=== PATIENT | female | born 1950 | race Caucasian/White ===

== ENCOUNTER 2016-08-01 17:18 | Inpatient (IN) | payer BC ==
[~2016-08-01] VITALS: Ht 165.1 cm; Wt 71.9 kg
[~2016-08-01 17:18] MED LIST: ACET325T16 PO; ALBU2.5V5 NEB; ALLO100T PO; AMLO10TA2 PO; ASPI-482 PO; ASPI325T11 PO; ATOR10TA60 PO; BACI28.43 TP; CALC0.25 PO; CALC667C6 PO; DARB60DI SQ; DOCU-109 PO; ERGO500027 PO; FOLI0.8T3 PO; FURO10VI IVP; FURO20TA3 PO; FURO80TA72 PO; HYDR-971 PO; METO25TA4 PO; OLME40TA12 PO; OMEP20CA9 PO; ONDA4TAB7 PO; PANT40TA5 PO; SENN-22 PO; SIMV20TA3 PO; WARF4TAB68 PO; ZOLP5TAB PO
[2016-08-01 20:27] VITALS: BP 103/57
[2016-08-01] MEDS ORDERED: CINA30TA2 PO (21:14)
[2016-08-01] MEDS ORDERED: AMLO5TAB2 PO (21:14)
[2016-08-01] MEDS ORDERED: FERR-26 PO (21:14)
[2016-08-01] MEDS ORDERED: SEVE800T9 PO (21:14)
[2016-08-01] MEDS ORDERED: ASPI-630 PO (21:14)
[2016-08-01] MEDS ORDERED: METO50TA2 PO (21:14)
[2016-08-01] MEDS ORDERED: ONDANSETRON PF 4 MG/2 ML VIAL. IV PRN (21:15)
[2016-08-01] MEDS ORDERED: 0.9 % SODIUM CHLORIDE 10 ML DISP.SYRIN. IV PRN (21:15)
[2016-08-01] MEDS ORDERED: IV NORMAL SALINE 500ML BAG 500 ML IV ONE (21:30)
[2016-08-01] MEDS: metroNIDAZOLE 500 MG TABLET PO SCH (22:42)
[2016-08-01] MEDS: CIPROFLOXACIN HCL 250 MG TABLET. PO SCH (22:42)
[2016-08-01 22:53] VITALS: BP 117/74
--- NOTE | 2016-08-01 23:00 | HP ---
ADMIT DATE: 08/01/2016 CHIEF COMPLAINT: Weakness and diarrhea. HISTORY OF PRESENT ILLNESS: The patient is a 66-year-old woman with past medical history of CAD status post CABG as well as end-stage renal disease, currently on peritoneal dialysis, who presented to [facility] with dizziness, lightheadedness, and generalized weakness. She reports having had diarrhea for 2 days, on and Tuesday, which then resolved over Tuesday. This morning, however, she reports one episode of blood-tinged loose bowel movement, not really diarrhea. She has a history of hemorrhoidal bleed similarly, but denies any rectal pain. Denies any fevers, chills, nausea, vomiting, has not been on any recent antibiotics. She is not aware of any sick contact. Complicating her history is the fact that she has end-stage renal disease, on peritoneal dialysis, awaiting renal transplant. At the ER there, a CT of the abdomen was obtained, which was essentially unrevealing. The patient, however, had 4 further diarrheal bowel movements, possibly in response to the p.o. contrast. Decision was therefore made to transfer her to [facility] for evaluation by her kidney doctors as well. PAST MEDICAL HISTORY: CAD status post CABG and mitral valve replacement, end-stage renal disease, on dialysis. FAMILY HISTORY: No kidney disease known. 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 ALLERGIES: TRAMADOL. MEDICATIONS: MAR reconciled with home medications. REVIEW OF SYSTEMS: Positive as per HPI. She relates that she actually felt much better after receiving a liter of fluid in the ER at [facility]. Rest of organ system review is benign. PHYSICAL EXAMINATION: VITAL SIGNS: From today show a blood pressure of 103/57, heart rate at 111, respiratory rate at 16. She is afebrile. GENERAL: This is a 66-year-old well-nourished woman, alert and oriented, no acute distress, pale appearing. HEENT: Shows no scleral icterus. NECK: Supple without any lymphadenopathy. LUNGS: Clear. HEART: Has regular rate and rhythm without any murmurs. ABDOMEN: Soft and nontender. Peritoneal dialysis catheter in place. LABORATORY DATA: CBC with a WBC of 24, hemoglobin of 10.6, MCV of 93, platelets of 310. Manual diff with 79% neutrophils, 3% bands, toxic vacuolation present. Chemistries with a BUN and creatinine of 59 and 13.8, essentially normal electrolytes. LFTs normal. Urine reveals nitrite negative, WBC 5-10, moderate bacteria. IMAGING: CT of the abdomen obtained at [facility] reveals extensive diverticulosis centered around the sigmoid colon. [place] kidneys are small. There is an incidental finding of a small noncalcified 2-3 mm nodule in the left lung base and moderate hiatus hernia. ASSESSMENT AND PLAN: The patient is a 66-year-old woman with end-stage renal disease and heart disease, now presenting with what appears to be dehydration in the setting of probable viral gastroenteritis versus diverticulitis. We will give her an additional 500 mL IV fluid bolus. We will hold off on antibiotics for the time being, as it seems that she actually resolved her symptoms for 36 hours until she received p.o. contrast, which occasionally can cause diarrhea. We cannot rule out diverticulitis. Given high risk of peritoneal seeding, we will treat with antibiotics, especially given her elevated WBC. Creatinine is significantly elevated. She is not aware of her baseline. We will obtain renal consult. Hold peritoneal dialysis for tonight until further instructions from Nephrology. The patient does have history of CAD, no acute issues are present at this time. We will continue her home medications. TY SHORT MD DR: YOVANNY/nts JOB#: [id number] / [id number] PING Barajas MD
[2016-08-02 03:00] VITALS: BP 127/74
[2016-08-02 04:27] LABS: BASO # 0.1 x10^3/uL (0.0-0.2); BASO % 0 % (0-3); EOS % 2 % (0-3); HEMATOCRIT 27.4 % (36.0-47.0); HEMOGLOBIN 9.1 g/dL (12.0-15.5); LYMPH # 1.4 x10^3/uL (1.0-4.8); LYMPH % 8 % (24-48); MEAN CORPUSCULAR HEMOGLOBIN 32 pg (25-35); MEAN CORPUSCULAR HGB CONC 33 g/dL (31-37); MEAN CORPUSCULAR VOLUME 95 fL (79-100); MONO % 9 % (0-9); NEUT % 81 % (31-73); PLATELET COUNT 227 x10^3/uL (140-400); RED BLOOD COUNT 2.88 x10^6/uL (3.50-5.40); RED CELL DISTRIBUTION WIDTH 15.8 % (11.5-14.5); WHITE BLOOD COUNT 18.9 x10^3/uL (4.0-11.0)
[2016-08-02 05:11] LABS: ALBUMIN 2.5 g/dL (3.4-5.0); ALBUMIN/GLOBULIN RATIO 0.6 (1.0-1.7); CREATININE 13.2 mg/dL (0.6-1.0); GFR 2.8; POTASSIUM 4.1 mmol/L (3.5-5.1); TOTAL BILIRUBIN 0.3 mg/dL (0.2-1.0); TOTAL PROTEIN 6.4 g/dL (6.4-8.2)
[2016-08-02] MEDS: metroNIDAZOLE 500 MG TABLET PO SCH (05:54)
[2016-08-02] MEDS: CIPROFLOXACIN HCL 250 MG TABLET. PO SCH (05:55)
[2016-08-02 06:34] LABS: % EOS 1 % (0-5)
[2016-08-02 06:35] LABS: PLT ESTIMATE ADEQUATE (ADEQUATE)
[2016-08-02 07:00] VITALS: BP 112/73
[2016-08-02 11:00] VITALS: BP 98/61
--- NOTE | 2016-08-02 11:22 | PDOC2 ---
CONSULT Date of Consult Date of Consult DATE: 08/02/16 TIME: 11:18 Reason for Consult Reason for Consult: ESRD Referring Physician Referring Physician: HAN Identification/Chief Complaint Chief Complaint DIARRHEA Source Source: Chart review, Patient History of Present Illness Reason for Visit: THIS IS A 66 YR OLD ADMITTED WITH WEAKNESS AND DIARRHEA OF SEVERAL DAYS DURATION. IT IS IMPROVING NOW. SHE IS ADMITTED WITH A DX OF DEHYDRATION. SHE HAS ESRD AND IS ON PD. LEUCOCYTOSIS IS NOTED BUT OTHERWISE LABS ARE C/W ESRD Past Medical History Cardiovascular: HTN, Hyperlipidemia CENTRAL NERVOUS SYSTEM: Other Heme/Onc: Anemia NOS Hepatobiliary: No pertinent hx Psych: No pertinent hx Rheumatologic: Other Infectious disease: No pertinent hx Renal/: Chronic renal failure Endocrine: Hyperparathyroidism Past Surgical History Past Surgical History PD CATH PLACEMENT Past Surgical History: Other Family History Family History: No Significant Social History ALCOHOL: none Drugs: None Current Medications Current Medications Current Medications Sodium Chloride (Normal Saline Flush) 3 ml PRN DAILY PRN IV AFTER MEDS AND BLOOD DRAWS; Start 08/01/16 at 21:15 Ondansetron HCl (Zofran) 4 mg PRN Q6HRS PRN IV NAUSEA/VOMITING; Start 08/01/16 at 21:15 Sodium Chloride 500 ml @ 500 mls/hr 1X ONCE IV ; Start 08/01/16 at 21:30; Stop 08/01/16 at 22:29; Status DC Ciprofloxacin (Cipro) 250 mg [id number] PO Last administered on 08/02/16 05:55; Start 08/01/16 at 22:00 Metronidazole (Flagyl) 500 mg Q8HRS PO Last administered on 08/02/16t 05:54; Start 08/01/16 at 22:00 Atorvastatin Calcium (Lipitor) 10 mg QHS PO ; Start 08/02/16 at 21:00; Status UNV Sevelamer Carbonate (Renvela) 2,400 mg TIDWMEALS PO ; Start 08/02/16 at 12:00; Status UNV Active Scripts Active Nephro-Wagner Tablet (Folic Acid/Vitamin B Comp W-C) 0.8 Mg Tablet 1 Tab PO DAILY Atorvastatin Calcium 10 Mg Tablet 10 Mg PO QHS Vitamin D2 (Ergocalciferol (Vitamin D2)) 50,000 Unit Capsule 50,000 Unit PO WEEKLY Calcitriol 0.25 Mcg Capsule 0.5 Mcg PO DAILY Reported Metoprolol Tartrate 50 Mg Tablet 1 Tab PO BID Amlodipine Besylate 5 Mg Tablet 5 Mg PO DAILY Sensipar (Cinacalcet Hcl) 30 Mg Tablet 1 Tab PO DAILY Aspirin 81 Mg Tab.chew 1 Tab PO DAILY Renvela (Sevelamer Carbonate) 800 Mg Tablet 3 Tab PO TIDWMEALS Ferrous Sulfate 325 Mg Tablet 1 Tab PO DAILY Lasix (Furosemide) 80 Mg Tablet 1 Tab PO BID Allergies Allergies: Coded Allergies: tramadol (Verified Adverse Reaction, Intermediate, dizziness, 07/10/15) ROS General: YES: Fatigue, Malaise, Appetite PSYCHOLOGICAL ROS: YES: Anxiety Eyes: Yes Decreased vision HEENT: YES: Heacaches Respiratory: YES: Cough Gastrointestinal: Yes Diarrhea Genitourinary: YES Other (OLIGURIA) Musculoskeletal: Yes Muscular Weakness Neurological: Yes Weakness Skin: Yes Dry Skin Physical Exam General: Alert, Oriented X3, Cooperative, mild distress HEENT: Atraumatic, PERRLA Lungs: Clear to auscultation Heart: Regular rate, Normal S1 Abdomen: Normal bowel sounds, Soft, No tenderness Extremities: No clubbing, No edema Skin: No rashes Neuro: Normal speech Psych/Mental Status: Mental status NL, Mood NL MUSCULOSKELETAL: No deformity, No swelling Vitals VITALS Vital Signs Date Time Temp Pulse Resp B/P (MAP) Pulse Ox O2 Delivery O2 Flow Rate FiO2 08/02/16 08:00 Room Air 08/02/16 07:00 97.9 95 18 112/73 (86) 92 97.9 Labs Labs Laboratory Tests Test 08/02/16 04:05 White Blood Count 18.9 x10^3/uL (4.0-11.0) Red Blood Count 2.88 x10^6/uL (3.50-5.40) Hemoglobin 9.1 g/dL (12.0-15.5) Hematocrit 27.4 % (36.0-47.0) Mean Corpuscular Volume 95 fL (79-100) Mean Corpuscular Hemoglobin 32 pg (25-35) Mean Corpuscular Hemoglobin Concent 33 g/dL (31-37) Red Cell Distribution Width 15.8 % (11.5-14.5) Platelet Count 227 x10^3/uL (140-400) Neutrophils (%) (Auto) 81 % (31-73) Lymphocytes (%) (Auto) 8 % (24-48) Monocytes (%) (Auto) 9 % (0-9) Eosinophils (%) (Auto) 2 % (0-3) Basophils (%) (Auto) 0 % (0-3) Neutrophils # (Auto) 15.2 x10^3uL (1.8-7.7) Lymphocytes # (Auto) 1.4 x10^3/uL (1.0-4.8) Monocytes # (Auto) 1.7 x10^3/uL (0.0-1.1) Eosinophils # (Auto) 0.4 x10^3/uL (0.0-0.7) Basophils # (Auto) 0.1 x10^3/uL (0.0-0.2) Segmented Neutrophils % 88 % (35-66) Lymphocytes % 8 % (24-48) Monocytes % 3 % (0-10) Eosinophils % 1 % (0-5) Platelet Estimate Adequate (ADEQUATE) Sodium Level 135 mmol/L (136-145) Potassium Level 4.1 mmol/L (3.5-5.1) Chloride Level 95 mmol/L (98-107) Carbon Dioxide Level 20 mmol/L (21-32) Anion Gap 20 (6-14) Blood Urea Nitrogen 63 mg/dL (7-20) Creatinine 13.2 mg/dL (0.6-1.0) Estimated GFR (Cockcroft-Gault) 2.8 BUN/Creatinine Ratio 5 (6-20) Glucose Level 92 mg/dL (70-99) Calcium Level 8.0 mg/dL (8.5-10.1) Total Bilirubin 0.3 mg/dL (0.2-1.0) Aspartate Amino Transf (AST/SGOT) 15 U/L (15-37) Alanine Aminotransferase (ALT/SGPT) 12 U/L (14-59) Alkaline Phosphatase 75 U/L (46-116) Total Protein 6.4 g/dL (6.4-8.2) Albumin 2.5 g/dL (3.4-5.0) Albumin/Globulin Ratio 0.6 (1.0-1.7) Laboratory Tests Test 08/02/16 04:05 White Blood Count 18.9 x10^3/uL (4.0-11.0) Red Blood Count 2.88 x10^6/uL (3.50-5.40) Hemoglobin 9.1 g/dL (12.0-15.5) Hematocrit 27.4 % (36.0-47.0) Mean Corpuscular Volume 95 fL (79-100) Mean Corpuscular Hemoglobin 32 pg (25-35) Mean Corpuscular Hemoglobin Concent 33 g/dL (31-37) Red Cell Distribution Width 15.8 % (11.5-14.5) Platelet Count 227 x10^3/uL (140-400) Neutrophils (%) (Auto) 81 % (31-73) Lymphocytes (%) (Auto) 8 % (24-48) Monocytes (%) (Auto) 9 % (0-9) Eosinophils (%) (Auto) 2 % (0-3) Basophils (%) (Auto) 0 % (0-3) Neutrophils # (Auto) 15.2 x10^3uL (1.8-7.7) Lymphocytes # (Auto) 1.4 x10^3/uL (1.0-4.8) Monocytes # (Auto) 1.7 x10^3/uL (0.0-1.1) Eosinophils # (Auto) 0.4 x10^3/uL (0.0-0.7) Basophils # (Auto) 0.1 x10^3/uL (0.0-0.2) Segmented Neutrophils % 88 % (35-66) Lymphocytes % 8 % (24-48) Monocytes % 3 % (0-10) Eosinophils % 1 % (0-5) Platelet Estimate Adequate (ADEQUATE) Sodium Level 135 mmol/L (136-145) Potassium Level 4.1 mmol/L (3.5-5.1) Chloride Level 95 mmol/L (98-107) Carbon Dioxide Level 20 mmol/L (21-32) Anion Gap 20 (6-14) Blood Urea Nitrogen 63 mg/dL (7-20) Creatinine 13.2 mg/dL (0.6-1.0) Estimated GFR (Cockcroft-Gault) 2.8 BUN/Creatinine Ratio 5 (6-20) Glucose Level 92 mg/dL (70-99) Calcium Level 8.0 mg/dL (8.5-10.1) Total Bilirubin 0.3 mg/dL (0.2-1.0) Aspartate Amino Transf (AST/SGOT) 15 U/L (15-37) Alanine Aminotransferase (ALT/SGPT) 12 U/L (14-59) Alkaline Phosphatase 75 U/L (46-116) Total Protein 6.4 g/dL (6.4-8.2) Albumin 2.5 g/dL (3.4-5.0) Albumin/Globulin Ratio 0.6 (1.0-1.7) Assessment/Plan Assessment/Plan IMP GASTROENTERITIS DIARRHEA-BETTER DEHYDRATION-IMPROVED ESRD PLAN UNABLE TO MAINTAIN AN IV SO ENCOURAGE PO FLUIDS OK TO D/C FROM RENAL STANDPOINT WILL DO 1.5% DIANEAL BAG [facility] AT HOME IF DISCHARGED AND FEELING WELL ELIEL MARINELLI MD Aug 02, 2016 11:22
[2016-08-02] MEDS ORDERED: METR500T PO (11:33)
--- NOTE | 2016-08-02 11:49 | PDOC3 ---
Discharge Summary Visit Information Date of Admission: Aug 01, 2016 Date of Discharge: Aug 02, 2016 Admitting Diagnosis: sepsis, diarrhea Final Diagnosis colitis, sepsis ESRD, on PD moderate malnutrition, POA metabolic acidosis relative hypotension, dehydration Brief Hospital Course Allergies Allergies Coded Allergies Type Severity Reaction Last Updated Verified tramadol Adverse Reaction Intermediate dizziness 07/10/15 Yes Vital Signs Vital Signs Date Time Temp Pulse Resp B/P (MAP) Pulse Ox O2 Delivery O2 Flow Rate FiO2 08/02/16 08:00 Room Air 08/02/16 07:00 97.9 95 18 112/73 (86) 92 97.9 Lab Results Laboratory Tests Test 08/02/16 04:05 White Blood Count 18.9 x10^3/uL (4.0-11.0) Red Blood Count 2.88 x10^6/uL (3.50-5.40) Hemoglobin 9.1 g/dL (12.0-15.5) Hematocrit 27.4 % (36.0-47.0) Mean Corpuscular Volume 95 fL (79-100) Mean Corpuscular Hemoglobin 32 pg (25-35) Mean Corpuscular Hemoglobin Concent 33 g/dL (31-37) Red Cell Distribution Width 15.8 % (11.5-14.5) Platelet Count 227 x10^3/uL (140-400) Neutrophils (%) (Auto) 81 % (31-73) Lymphocytes (%) (Auto) 8 % (24-48) Monocytes (%) (Auto) 9 % (0-9) Eosinophils (%) (Auto) 2 % (0-3) Basophils (%) (Auto) 0 % (0-3) Neutrophils # (Auto) 15.2 x10^3uL (1.8-7.7) Lymphocytes # (Auto) 1.4 x10^3/uL (1.0-4.8) Monocytes # (Auto) 1.7 x10^3/uL (0.0-1.1) Eosinophils # (Auto) 0.4 x10^3/uL (0.0-0.7) Basophils # (Auto) 0.1 x10^3/uL (0.0-0.2) Segmented Neutrophils % 88 % (35-66) Lymphocytes % 8 % (24-48) Monocytes % 3 % (0-10) Eosinophils % 1 % (0-5) Platelet Estimate Adequate (ADEQUATE) Sodium Level 135 mmol/L (136-145) Potassium Level 4.1 mmol/L (3.5-5.1) Chloride Level 95 mmol/L (98-107) Carbon Dioxide Level 20 mmol/L (21-32) Anion Gap 20 (6-14) Blood Urea Nitrogen 63 mg/dL (7-20) Creatinine 13.2 mg/dL (0.6-1.0) Estimated GFR (Cockcroft-Gault) 2.8 BUN/Creatinine Ratio 5 (6-20) Glucose Level 92 mg/dL (70-99) Calcium Level 8.0 mg/dL (8.5-10.1) Total Bilirubin 0.3 mg/dL (0.2-1.0) Aspartate Amino Transf (AST/SGOT) 15 U/L (15-37) Alanine Aminotransferase (ALT/SGPT) 12 U/L (14-59) Alkaline Phosphatase 75 U/L (46-116) Total Protein 6.4 g/dL (6.4-8.2) Albumin 2.5 g/dL (3.4-5.0) Albumin/Globulin Ratio 0.6 (1.0-1.7) Laboratory Tests Test 08/02/16 04:05 White Blood Count 18.9 x10^3/uL (4.0-11.0) Red Blood Count 2.88 x10^6/uL (3.50-5.40) Hemoglobin 9.1 g/dL (12.0-15.5) Hematocrit 27.4 % (36.0-47.0) Mean Corpuscular Volume 95 fL (79-100) Mean Corpuscular Hemoglobin 32 pg (25-35) Mean Corpuscular Hemoglobin Concent 33 g/dL (31-37) Red Cell Distribution Width 15.8 % (11.5-14.5) Platelet Count 227 x10^3/uL (140-400) Neutrophils (%) (Auto) 81 % (31-73) Lymphocytes (%) (Auto) 8 % (24-48) Monocytes (%) (Auto) 9 % (0-9) Eosinophils (%) (Auto) 2 % (0-3) Basophils (%) (Auto) 0 % (0-3) Neutrophils # (Auto) 15.2 x10^3uL (1.8-7.7) Lymphocytes # (Auto) 1.4 x10^3/uL (1.0-4.8) Monocytes # (Auto) 1.7 x10^3/uL (0.0-1.1) Eosinophils # (Auto) 0.4 x10^3/uL (0.0-0.7) Basophils # (Auto) 0.1 x10^3/uL (0.0-0.2) Segmented Neutrophils % 88 % (35-66) Lymphocytes % 8 % (24-48) Monocytes % 3 % (0-10) Eosinophils % 1 % (0-5) Platelet Estimate Adequate (ADEQUATE) Sodium Level 135 mmol/L (136-145) Potassium Level 4.1 mmol/L (3.5-5.1) Chloride Level 95 mmol/L (98-107) Carbon Dioxide Level 20 mmol/L (21-32) Anion Gap 20 (6-14) Blood Urea Nitrogen 63 mg/dL (7-20) Creatinine 13.2 mg/dL (0.6-1.0) Estimated GFR (Cockcroft-Gault) 2.8 BUN/Creatinine Ratio 5 (6-20) Glucose Level 92 mg/dL (70-99) Calcium Level 8.0 mg/dL (8.5-10.1) Total Bilirubin 0.3 mg/dL (0.2-1.0) Aspartate Amino Transf (AST/SGOT) 15 U/L (15-37) Alanine Aminotransferase (ALT/SGPT) 12 U/L (14-59) Alkaline Phosphatase 75 U/L (46-116) Total Protein 6.4 g/dL (6.4-8.2) Albumin 2.5 g/dL (3.4-5.0) Albumin/Globulin Ratio 0.6 (1.0-1.7) Brief Hospital Course Ms. Flores is a 66 old female on PD, admit for acute diarrhea. stool normalized at 12 hours, stool sample sent, not resulted able to take PO, ate normal amount of food. felt at baseline, request DC home Discharge Information Condition at Discharge: Improved Follow Up: Weeks Disposition/Orders: D/C to Home Scheduled Amlodipine Besylate (Amlodipine Besylate), 5 MG PO DAILY, (Reported) Aspirin (Aspirin), 1 TAB PO DAILY, (Reported) Atorvastatin Calcium (Atorvastatin Calcium), 10 MG PO QHS Calcitriol (Calcitriol), 0.5 MCG PO DAILY Cinacalcet Hcl (Sensipar), 1 TAB PO DAILY, (Reported) Ergocalciferol (Vitamin D2) (Vitamin D2), 50,000 UNIT PO WEEKLY Ferrous Sulfate (Ferrous Sulfate), 1 TAB PO DAILY, (Reported) Folic Acid/Vitamin B Comp W-C (Nephro-Wagner Tablet), 1 TAB PO DAILY Furosemide (Lasix), 1 TAB PO BID, (Reported) Metoprolol Tartrate (Metoprolol Tartrate), 1 TAB PO BID, (Reported) Sevelamer Carbonate (Renvela), 3 TAB PO TIDWMEALS, (Reported) Patient Instructions Patient Instructions time > 30 min flagyl 7 days hold BP meds for one day, relative hypotensino, cont PD, Dr. Franco instructed to give smaller dose CHIKA GOMEZ MD Aug 02, 2016 11:49
[2016-08-02] MEDS ORDERED: SEVELAMER CARBONATE 800 MG TABLET. PO SCH (12:00)
[2016-08-02] MEDS ORDERED: ATORVASTATIN CALCIUM 10 MG TABLET. PO SCH (21:00)
== END 2016-08-02 13:48 | disposition home or self-care (01) | DRG 871 ==
LOC: 5 NORTH 19:15
PROVIDERS: ADMIT Internal Medicine Hematology & Oncology; ATTEND Internal Medicine Hematology & Oncology
DX: A41.9 Sepsis, unspecified organism (principal); N18.6 End stage renal disease; E44.0 Moderate protein-calorie malnutrition; E87.2 Acidosis; I12.0 Hypertensive chronic kidney disease with stage 5 chronic kidney disease or end stage renal disease; I25.10 Atherosclerotic heart disease of native coronary artery without angina pectoris; E78.5 Hyperlipidemia, unspecified; E86.0 Dehydration; E21.3 Hyperparathyroidism, unspecified; K52.9 Noninfective gastroenteritis and colitis, unspecified; Z95.1 Presence of aortocoronary bypass graft; Z95.2 Presence of prosthetic heart valve; Z99.2 Dependence on renal dialysis; Z88.5 Allergy status to narcotic agent; Z68.26 Body mass index [BMI] 26.0-26.9, adult
CPT/HCPCS: 36415; 80053; 85007; 85027; 87324

== ENCOUNTER 2016-12-05 11:58 | Inpatient (IN) | payer BC ==
[~2016-12-05] VITALS: Ht 165.1 cm; Wt 70.8 kg
[~2016-12-05 11:58] MED LIST changes: +AMLO5TAB2 PO; +ASPI-630 PO; +CINA30TA2 PO; +FERR-26 PO; +METO50TA2 PO; +METR500T PO; +SEVE800T9 PO
[2016-12-05 14:49] LABS: BASO # 0.1 x10^3/uL (0.0-0.2); BASO % 1 % (0-3); EOS % 2 % (0-3); HEMATOCRIT 26.1 % (36.0-47.0); HEMOGLOBIN 8.7 g/dL (12.0-15.5); LYMPH # 1.1 x10^3/uL (1.0-4.8); LYMPH % 9 % (24-48); MEAN CORPUSCULAR HEMOGLOBIN 32 pg (25-35); MEAN CORPUSCULAR HGB CONC 33 g/dL (31-37); MEAN CORPUSCULAR VOLUME 97 fL (79-100); MONO % 9 % (0-9); NEUT % 79 % (31-73); PLATELET COUNT 314 x10^3/uL (140-400); RED CELL DISTRIBUTION WIDTH 15.1 % (11.5-14.5); WHITE BLOOD COUNT 11.9 x10^3/uL (4.0-11.0)
[2016-12-05 15:02] LABS: CALCIUM 7.2 mg/dL (8.5-10.1); CREATININE 10.4 mg/dL (0.6-1.0); GFR 3.7
[2016-12-05 15:08] LABS: ALBUMIN 3.1 g/dL (3.4-5.0); ALBUMIN/GLOBULIN RATIO 0.7 (1.0-1.7); TOTAL BILIRUBIN 0.3 mg/dL (0.2-1.0); TOTAL PROTEIN 7.5 g/dL (6.4-8.2)
[2016-12-05] MEDS ORDERED: PROCHLORPERAZINE 25 MG SUPP.RECT. PR PRN (16:15)
[2016-12-05] MEDS ORDERED: MORPHINE SULFATE 2 MG/ML DISP.SYRIN. IV PRN (16:15)
[2016-12-05] MEDS ORDERED: BISACODYL 10 MG SUPP.RECT. PR PRN (16:15)
[2016-12-05] MEDS ORDERED: MAG HYDROX/ALUMINUM HYD/SIMETH 30 ML ORAL.SUSP PO PRN (16:15)
[2016-12-05] MEDS ORDERED: PROCHLORPERAZINE 10 MG/2 ML VIAL. IV PRN (16:15)
[2016-12-05] MEDS ORDERED: oxyCODONE IR 5 MG TABLET PO PRN (16:15)
[2016-12-05] MEDS ORDERED: CALCIUM CARBONATE 500 MG TAB.CHEW PO PRN (16:15)
[2016-12-05] MEDS ORDERED: ONDANSETRON PF 4 MG/2 ML VIAL. IV PRN (16:15)
[2016-12-05] MEDS ORDERED: MAGNESIUM HYDROXIDE 2,400 MG/30 ML ORAL.SUSP. PO PRN (16:15)
--- NOTE | 2016-12-05 16:32 | PHYS DOC ---
Past Medical History Past Medical History: High Cholesterol, Hypertension, [place], Renal Failure Additional Past Medical Histor: Lupus Past Surgical History: , Other Additional Past Surgical Histo: dialysis catheter right upper chest Alcohol Use: None Drug Use: None Adult General Chief Complaint Chief Complaint: DIALYSIS PROBLEM HPI HPI Patient is a 66 year old female with history significant for end-stage renal disease who is currently on Prinivil dialysis presents here today secondary to malfunctioning peritoneal dialysis catheter. Patient reports that starting she's been having a difficult time draining her peritoneal dialysis fluid. She has been in close contact with her. No dialysis nurse and they have tried several interventions at home. Patient reports that she tried fiber in her perineal dialysate without any success. Patient reports that she tried manual drainage on Tuesday with minimal fluid obtained. Patient reports that today they put manual fluid inside her perineal cavity and today she is unable to extract any fluid. Patient reports that she feels like her abdomen is obviously distended from the perineal fluid but she is also feeling more short of breath and winded. Patient does have an appointment with Dr. Lovell tomorrow however she has been feeling more short of breath and was concerned so her dialysis nurse asked her to come to the ER today. Patient denies any other symptomatology. Patient has any fevers shakes chills nausea vomiting diarrhea chest pain or shortness of breath. Patient reports one similar episode like this happen in the past that they were resolved with the fibrin that she utilized was in her perineal dialysate however this time the fibrin is not working. Review of systems: Constitutional: Denies fever or chills Eyes: Denies change in visual acuity, redness, or eye pain HENT: Denies nasal congestion or sore throat All the other review systems are negative except as documented in the history of present illness portion. Physical exam: Constitutional: Well developed, well nourished, no acute distress, non-toxic appearance. HENT: Normocephalic, atraumatic, bilateral external ears normal, nose normal. Eyes:EOMI, conjunctiva normal, no discharge. Neck: Normal range of motion, no tenderness, supple, no stridor. Cardiovascular:Heart rate regular rhythm, Lungs & Thorax: Bilateral breath sounds clear to auscultation Abdomen: Bowel sounds normal, soft, no tenderness, no masses, no pulsatile masses. Mildly distended Skin: Warm, dry, no erythema, no rash. Back: No tenderness, no CVA tenderness. Extremities: No tenderness, no cyanosis, no clubbing, ROM intact, no edema. Neurologic: Alert and oriented X 3, normal motor function, normal sensory function, no focal deficits noted. Psychologic: Affect normal, judgement normal, mood normal. 66-year-old female with dysfunctional perineal dialysis catheter. I spoke to Dr. Lovell's associate ( Dr Pop) who called back and recommended patient be admitted to the hospital for interventional radiology intervention. Patient currently is clinically and hemodynamically stable. Patient's labs were all within normal limits. Patient has no evidence of hyperkalemia or acidosis at this time. I spoke to Dr. patel who is agreed to assist with admission of this patient for further management. Current Medications Current Medications Current Medications Medications (Trade) Dose Ordered Sig/Marcus Start Time Stop Time Status Last Admin Dose Admin Acetaminophen (Tylenol) 650 mg PRN Q6HRS PRN 12/05/16 16:15 Al Hydroxide/Mg Hydroxide (Mylanta Plus Xs) 30 ml PRN Q3HRS PRN 12/05/16 16:15 Amlodipine Besylate (Norvasc) 5 mg DAILY 12/06/16 09:00 Atorvastatin Calcium (Lipitor) 10 mg QHS 12/05/16 21:00 Bisacodyl (Dulcolax Supp) 10 mg PRN DAILY PRN 12/05/16 16:15 Calcitriol (Rocaltrol) 0.5 mcg DAILY 12/06/16 09:00 Calcium Carbonate/ Glycine (Tums) 500 mg PRN Q3HRS PRN 12/05/16 16:15 Cinacalcet (Sensipar) 30 mg DAILY 12/06/16 09:00 Docusate Sodium (Colace) 100 mg BID 12/05/16 21:00 Ergocalciferol (Vitamin D2) 50,000 unit WEEKLY 12/12/16 09:00 Ferrous Sulfate (Feosol) 325 mg DAILY 12/06/16 09:00 Furosemide (Lasix) 80 mg BID92 12/06/16 09:00 Magnesium Hydroxide (Milk Of Magnesia) 2,400 mg PRN Q12HR PRN 12/05/16 16:15 Metoprolol Tartrate (Lopressor) 50 mg BID 12/05/16 21:00 Morphine Sulfate 1 mg PRN Q1HR PRN 12/05/16 16:15 Ondansetron HCl (Zofran) 4 mg PRN Q6HRS PRN 12/05/16 16:15 Oxycodone HCl (Roxicodone) 5 mg PRN Q3HRS PRN 12/05/16 16:15 Prochlorperazine (Compazine) 25 mg PRN Q12HR PRN 12/05/16 16:15 Prochlorperazine Edisylate (Compazine) 10 mg PRN Q6HRS PRN 12/05/16 16:15 Sevelamer Carbonate (Renvela) 2,400 mg TIDWMEALS 12/05/16 17:00 Vitamin B Complex/ Vitamin C (Daniela-Wagner) 1 tab DAILY 12/06/16 09:00 Zolpidem Tartrate (Ambien) 5 mg PRN QHS PRN 12/05/16 16:15 Allergies Allergies Allergies Coded Allergies Type Severity Reaction Last Updated Verified tramadol Adverse Reaction Intermediate dizziness 07/10/15 Yes Current Patient Data Vital Signs Vital Signs Date Time Temp Pulse Resp B/P (MAP) Pulse Ox O2 Delivery O2 Flow Rate FiO2 12/05/16 15:30 91 149/83 (105) 96 Room Air 12/05/16 13:30 98.7 18 98.7 Lab Values Laboratory Tests Test 12/05/16 14:25 White Blood Count 11.9 x10^3/uL (4.0-11.0) H Red Blood Count 2.70 x10^6/uL (3.50-5.40) L Hemoglobin 8.7 g/dL (12.0-15.5) L Hematocrit 26.1 % (36.0-47.0) L Mean Corpuscular Volume 97 fL (79-100) Mean Corpuscular Hemoglobin 32 pg (25-35) Mean Corpuscular Hemoglobin Concent 33 g/dL (31-37) Red Cell Distribution Width 15.1 % (11.5-14.5) H Platelet Count 314 x10^3/uL (140-400) Neutrophils (%) (Auto) 79 % (31-73) H Lymphocytes (%) (Auto) 9 % (24-48) L Monocytes (%) (Auto) 9 % (0-9) Eosinophils (%) (Auto) 2 % (0-3) Basophils (%) (Auto) 1 % (0-3) Neutrophils # (Auto) 9.5 x10^3uL (1.8-7.7) H Lymphocytes # (Auto) 1.1 x10^3/uL (1.0-4.8) Monocytes # (Auto) 1.1 x10^3/uL (0.0-1.1) Eosinophils # (Auto) 0.2 x10^3/uL (0.0-0.7) Basophils # (Auto) 0.1 x10^3/uL (0.0-0.2) Sodium Level 143 mmol/L (136-145) Potassium Level 4.0 mmol/L (3.5-5.1) Chloride Level 102 mmol/L (98-107) Carbon Dioxide Level 23 mmol/L (21-32) Anion Gap 18 (6-14) H Blood Urea Nitrogen 53 mg/dL (7-20) H Creatinine 10.4 mg/dL (0.6-1.0) H Estimated GFR (Cockcroft-Gault) 3.7 BUN/Creatinine Ratio 5 (6-20) L Glucose Level 86 mg/dL (70-99) Calcium Level 7.2 mg/dL (8.5-10.1) L Total Bilirubin 0.3 mg/dL (0.2-1.0) Aspartate Amino Transferase (AST) 23 U/L (15-37) Alanine Aminotransferase (ALT) 39 U/L (14-59) Alkaline Phosphatase 113 U/L (46-116) Total Protein 7.5 g/dL (6.4-8.2) Albumin 3.1 g/dL (3.4-5.0) L Albumin/Globulin Ratio 0.7 (1.0-1.7) L Laboratory Tests 12/05/16 14:25 Laboratory Tests 12/05/16 14:25 EKG EKG [] Radiology/Procedures Radiology/Procedures [] Course & Med Decision Making Course & Med Decision Making Pertinent Labs and Imaging studies reviewed. (See chart for details) [] Dragon Disclaimer Dragon Disclaimer This electronic medical record was generated, in whole or in part, using a voice recognition dictation system. Departure Departure Impression: Primary Impression: Peritoneal dialysis catheter dysfunction Disposition: ADMITTED INPATIENT Admitting Physician: Termulo, Haydee Condition: STABLE Referrals: PING CARRANZA MD (PCP) LUANNE PARMAR MD Dec 05, 2016 16:32
[2016-12-05] MEDS ORDERED: LOPERAMIDE 2 MG CAPSULE PO PRN (17:15)
[2016-12-05] MEDS ORDERED: PROCHLORPERAZINE 5 MG TABLET. PO PRN (17:15)
--- NOTE | 2016-12-05 17:20 | PDOC1 ---
History and Physical Date of Admission Date of Admission DATE: 12/05/16 TIME: 17:16 Identification/Chief Complaint Chief Complaint malfunctioning PD Problems: Source Source: Caregiver, Chart review, Patient History of Present Illness History of Present Illness 66 y.o [place] female on PD over a yr now from lupus, last decent PD was wed and started to notice some clogged issues with her PD thrusday, Feels unwell, vomited twice now and some loose stools, some blood in vomitus but not in stools , K ok and bicarb ok but creat 10 (unknown baseline). Renal aware and recs IR viktor for fixing of pD cath tmr. NO fevers at home, stooled again at ER, Louise cruz,s keith for stools mimi, IR dhara.Dw patient and sister at bedside Past Medical History Cardiovascular: HTN, Hyperlipidemia CENTRAL NERVOUS SYSTEM: Other Heme/Onc: Anemia NOS Hepatobiliary: No pertinent hx Psych: No pertinent hx Rheumatologic: Other Infectious disease: No pertinent hx Renal/: Chronic renal failure Endocrine: Hyperparathyroidism Past Surgical History Past Surgical History: Other (PD cath) Family History Family History: No Significant Social History Smoke: No ALCOHOL: none Drugs: None Current Medications Current Medications Current Medications Ondansetron HCl (Zofran) 4 mg PRN Q6HRS PRN IV NAUSEA/VOMITING; Start at 16:15 Prochlorperazine Edisylate (Compazine) 10 mg PRN Q6HRS PRN IV NAUSEA/VOMITING; Start 12/05/16 at 16:15 Prochlorperazine (Compazine) 25 mg PRN Q12HR PRN [place] NAUSEA/VOMITING; Start at 16:15 Al Hydroxide/Mg Hydroxide (Mylanta Plus Xs) 30 ml PRN Q3HRS PRN PO HEARTBURN / GAS; Start 12/05/16 at 16:15 Calcium Carbonate/ Glycine (Tums) 500 mg PRN Q3HRS PRN PO UPSET STOMACH; Start 12/05/16 at 16:15 Zolpidem Tartrate (Ambien) 5 mg PRN QHS PRN PO INSOMNIA, MAY REPEAT IN 1HR; Start 12/05/16 at 16:15 Oxycodone HCl (Roxicodone) 5 mg PRN Q3HRS PRN PO BREAKTHROUGH PAIN; Start at 16:15 Morphine Sulfate 1 mg PRN Q1HR PRN IV PAIN; Start 12/05/16 at 16:15 Acetaminophen (Tylenol) 650 mg PRN Q6HRS PRN PO Headaches, Temp > 101.5F; Start 12/05/16 at 16:15 Docusate Sodium (Colace) 100 mg BID PO ; Start 12/05/16 at 21:00 Magnesium Hydroxide (Milk Of Magnesia) 2,400 mg PRN Q12HR PRN PO CONSTIPATION; Start 12/05/16 at 16:15 Bisacodyl (Dulcolax Supp) 10 mg PRN DAILY PRN [place] CONSTIPATION; Start 12/05/16 at 16:15 Amlodipine Besylate (Norvasc) 5 mg DAILY PO ; Start 12/06/16 at 09:00 Atorvastatin Calcium (Lipitor) 10 mg QHS PO ; Start 12/05/16 at 21:00 Calcitriol (Rocaltrol) 0.5 mcg DAILY PO ; Start 12/06/16 at 09:00 Cinacalcet (Sensipar) 30 mg DAILY PO ; Start 12/06/16 at 09:00 Ergocalciferol (Vitamin D2) 50,000 unit WEEKLY PO ; Start 12/12/16 at 09:00 Ferrous Sulfate (Feosol) 325 mg DAILY PO ; Start 12/06/16 at 09:00 Vitamin B Complex/ Vitamin C (Daniela-Wagner) 1 tab DAILY PO ; Start 12/06/16 at 09: 00 Furosemide (Lasix) 80 mg BID92 PO ; Start 12/06/16 at 09:00 Metoprolol Tartrate (Lopressor) 50 mg BID PO ; Start 12/05/16 at 21:00 Sevelamer Carbonate (Renvela) 2,400 mg TIDWMEALS PO ; Start 12/05/16 at 17:00 Active Scripts Active Flagyl (Metronidazole) 500 Mg Tablet 500 Mg PO Q8HRS Nephro-Wagner Tablet (Folic Acid/Vitamin B Comp W-C) 0.8 Mg Tablet 1 Tab PO DAILY Atorvastatin Calcium 10 Mg Tablet 10 Mg PO QHS Vitamin D2 (Ergocalciferol (Vitamin D2)) 50,000 Unit Capsule 50,000 Unit PO WEEKLY Calcitriol 0.25 Mcg Capsule 0.5 Mcg PO DAILY Reported Metoprolol Tartrate 50 Mg Tablet 1 Tab PO BID Amlodipine Besylate 5 Mg Tablet 5 Mg PO DAILY Sensipar (Cinacalcet Hcl) 30 Mg Tablet 1 Tab PO DAILY Aspirin 81 Mg Tab.chew 1 Tab PO DAILY Renvela (Sevelamer Carbonate) 800 Mg Tablet 3 Tab PO TIDWMEALS Ferrous Sulfate 325 Mg Tablet 1 Tab PO DAILY Lasix (Furosemide) 80 Mg Tablet 1 Tab PO BID Allergies Allergies: Coded Allergies: tramadol (Verified Adverse Reaction, Intermediate, dizziness, 07/10/15) ROS Review of System diiarrhea, vomitus, no fevers, no cp, soa, all else 14 pt reviewed, neg Physical Exam General: Alert, Oriented X3, Cooperative, No acute distress HEENT: Atraumatic, PERRLA, EOMI, Mucous membr. moist/pink Lungs: Clear to auscultation, Normal air movement Heart: S1S2, RRR, no thrills, no rubs, no gallops, no murmurs Cardiovascular: S1, S2 Breasts: Normal, Rt breast nml w/o mass, Lt breast nml w/o mass, Nipples normal Abdomen: Soft, Other (PD cath left side, no tenderness, no guarding) Rectal Exam: not examined PELVIC: Nml ext genitalia Extremities: No clubbing, No cyanosis, No edema, Normal pulses, No tenderness/ swelling Skin: No rashes, No breakdown, No significant lesion Neuro: Normal gait, Normal speech, Strength at 5/5 X4 ext, Normal tone, Sensation intact, Cranial nerves 3-12 NL, Reflexes 2+ Psych/Mental Status: Mental status NL, Mood NL Vitals Vitals Vital Signs Date Time Temp Pulse Resp B/P (MAP) Pulse Ox O2 Delivery O2 Flow Rate FiO2 12/05/16 17:02 71 128/77 (94) 91 Room Air 12/05/16 13:30 98.7 18 98.7 Labs Labs Laboratory Tests Test 12/05/16 14:25 White Blood Count 11.9 x10^3/uL (4.0-11.0) Red Blood Count 2.70 x10^6/uL (3.50-5.40) Hemoglobin 8.7 g/dL (12.0-15.5) Hematocrit 26.1 % (36.0-47.0) Mean Corpuscular Volume 97 fL (79-100) Mean Corpuscular Hemoglobin 32 pg (25-35) Mean Corpuscular Hemoglobin Concent 33 g/dL (31-37) Red Cell Distribution Width 15.1 % (11.5-14.5) Platelet Count 314 x10^3/uL (140-400) Neutrophils (%) (Auto) 79 % (31-73) Lymphocytes (%) (Auto) 9 % (24-48) Monocytes (%) (Auto) 9 % (0-9) Eosinophils (%) (Auto) 2 % (0-3) Basophils (%) (Auto) 1 % (0-3) Neutrophils # (Auto) 9.5 x10^3uL (1.8-7.7) Lymphocytes # (Auto) 1.1 x10^3/uL (1.0-4.8) Monocytes # (Auto) 1.1 x10^3/uL (0.0-1.1) Eosinophils # (Auto) 0.2 x10^3/uL (0.0-0.7) Basophils # (Auto) 0.1 x10^3/uL (0.0-0.2) Sodium Level 143 mmol/L (136-145) Potassium Level 4.0 mmol/L (3.5-5.1) Chloride Level 102 mmol/L (98-107) Carbon Dioxide Level 23 mmol/L (21-32) Anion Gap 18 (6-14) Blood Urea Nitrogen 53 mg/dL (7-20) Creatinine 10.4 mg/dL (0.6-1.0) Estimated GFR (Cockcroft-Gault) 3.7 BUN/Creatinine Ratio 5 (6-20) Glucose Level 86 mg/dL (70-99) Calcium Level 7.2 mg/dL (8.5-10.1) Total Bilirubin 0.3 mg/dL (0.2-1.0) Aspartate Amino Transf (AST/SGOT) 23 U/L (15-37) Alanine Aminotransferase (ALT/SGPT) 39 U/L (14-59) Alkaline Phosphatase 113 U/L (46-116) Total Protein 7.5 g/dL (6.4-8.2) Albumin 3.1 g/dL (3.4-5.0) Albumin/Globulin Ratio 0.7 (1.0-1.7) Laboratory Tests Test 12/05/16 14:25 White Blood Count 11.9 x10^3/uL (4.0-11.0) Red Blood Count 2.70 x10^6/uL (3.50-5.40) Hemoglobin 8.7 g/dL (12.0-15.5) Hematocrit 26.1 % (36.0-47.0) Mean Corpuscular Volume 97 fL (79-100) Mean Corpuscular Hemoglobin 32 pg (25-35) Mean Corpuscular Hemoglobin Concent 33 g/dL (31-37) Red Cell Distribution Width 15.1 % (11.5-14.5) Platelet Count 314 x10^3/uL (140-400) Neutrophils (%) (Auto) 79 % (31-73) Lymphocytes (%) (Auto) 9 % (24-48) Monocytes (%) (Auto) 9 % (0-9) Eosinophils (%) (Auto) 2 % (0-3) Basophils (%) (Auto) 1 % (0-3) Neutrophils # (Auto) 9.5 x10^3uL (1.8-7.7) Lymphocytes # (Auto) 1.1 x10^3/uL (1.0-4.8) Monocytes # (Auto) 1.1 x10^3/uL (0.0-1.1) Eosinophils # (Auto) 0.2 x10^3/uL (0.0-0.7) Basophils # (Auto) 0.1 x10^3/uL (0.0-0.2) Sodium Level 143 mmol/L (136-145) Potassium Level 4.0 mmol/L (3.5-5.1) Chloride Level 102 mmol/L (98-107) Carbon Dioxide Level 23 mmol/L (21-32) Anion Gap 18 (6-14) Blood Urea Nitrogen 53 mg/dL (7-20) Creatinine 10.4 mg/dL (0.6-1.0) Estimated GFR (Cockcroft-Gault) 3.7 BUN/Creatinine Ratio 5 (6-20) Glucose Level 86 mg/dL (70-99) Calcium Level 7.2 mg/dL (8.5-10.1) Total Bilirubin 0.3 mg/dL (0.2-1.0) Aspartate Amino Transf (AST/SGOT) 23 U/L (15-37) Alanine Aminotransferase (ALT/SGPT) 39 U/L (14-59) Alkaline Phosphatase 113 U/L (46-116) Total Protein 7.5 g/dL (6.4-8.2) Albumin 3.1 g/dL (3.4-5.0) Albumin/Globulin Ratio 0.7 (1.0-1.7) VTE Prophylaxis Ordered VTE Prophylaxis Devices: Yes VTE Pharmacological Prophylaxi: Yes Assessment/Plan Assessment/Plan 1. MAlfunctioning PD cath 2. Diarrhea 3. LUpus hence on HD /ESRD 4. Anemia of ESRD 5. Obesity PLAn: Admit Renal consult IR to fix PD cath tmr NPO post MN WIll need PHOTOVOLTAIC TECHNICIAN soon, does not feel well LAbs dhara, anytime hyperkal tmr, need to correct Imodium Send for stool studies Resume home meds Dw pt and sister seen at ER XM1 TANK DRIVERFREDERIC LEMUS MD Dec 05, 2016 17:20
[2016-12-05] MEDS: SEVELAMER CARBONATE 800 MG TABLET. PO SCH (18:12)
[2016-12-05 18:34] VITALS: BP 149/99
[2016-12-05 19:00] VITALS: BP 143/89
[2016-12-05] MEDS: DOCUSATE SODIUM 100 MG CAPSULE. PO SCH (21:00)
[2016-12-05] MEDS: ATORVASTATIN CALCIUM 10 MG TABLET. PO SCH (21:05)
[2016-12-05] MEDS: METOPROLOL TART IMMED RELEASE 50 MG TABLET. PO SCH (21:06)
[2016-12-05] MEDS: ZOLPIDEM 5 MG TABLET. PO PRN ×2 (21:10→23:50)
[2016-12-05 23:00] VITALS: BP 138/92
[2016-12-06 03:00] VITALS: BP 123/79
[2016-12-06 07:00] VITALS: BP 134/87
[2016-12-06] MEDS: SEVELAMER CARBONATE 800 MG TABLET. PO SCH ×3 (08:00→17:18)
[2016-12-06] MEDS: amLODIPine BESYLATE 5 MG TABLET PO SCH (08:11)
[2016-12-06] MEDS: METOPROLOL TART IMMED RELEASE 50 MG TABLET. PO SCH ×2 (08:12→21:17)
[2016-12-06] MEDS ORDERED: IOHEXOL 300 MG/ML 50 ML VIAL. ONE (08:29)
[2016-12-06] MEDS ORDERED: IOHEXOL 300 MG/ML 50 ML VIAL. IART ONE (08:45)
[2016-12-06] MEDS ORDERED: CONTRAST GIVEN MC PRN (08:45)
[2016-12-06] MEDS ORDERED: CINACALCET HCL 30 MG TABLET PO SCH (09:00)
--- NOTE | 2016-12-06 09:05 | PDOC2 ---
CONSULT Date of Consult Date of Consult DATE: 12/06/16 TIME: 09:04 Reason for Consult Reason for Consult: ESRD and poorly functioning PD Cath Referring Physician Referring Physician: Dr Hughes Identification/Chief Complaint Chief Complaint PD Cath not draingin and GI S/s Problems: Source Source: Chart review, Patient History of Present Illness Reason for Visit: as dictated Past Medical History Cardiovascular: HTN, Hyperlipidemia CENTRAL NERVOUS SYSTEM: Other Heme/Onc: Anemia NOS Hepatobiliary: No pertinent hx Psych: No pertinent hx Rheumatologic: Other Infectious disease: No pertinent hx Renal/: Chronic renal failure Endocrine: Hyperparathyroidism Past Surgical History Past Surgical History: Other (PD cath) Family History Family History: No Significant Social History No ALCOHOL: none Drugs: None Current Medications Current Medications Current Medications Ondansetron HCl (Zofran) 4 mg PRN Q6HRS PRN IV NAUSEA/VOMITING; Start at 16:15 Prochlorperazine Edisylate (Compazine) 10 mg PRN Q6HRS PRN IV NAUSEA/VOMITING; Start 12/05/16 at 16:15 Prochlorperazine (Compazine) 25 mg PRN Q12HR PRN [place] NAUSEA/VOMITING; Start at 16:15 Al Hydroxide/Mg Hydroxide (Mylanta Plus Xs) 30 ml PRN Q3HRS PRN PO HEARTBURN / GAS; Start 12/05/16 at 16:15 Calcium Carbonate/ Glycine (Tums) 500 mg PRN Q3HRS PRN PO UPSET STOMACH; Start 12/05/16 at 16:15 Zolpidem Tartrate (Ambien) 5 mg PRN QHS PRN PO INSOMNIA, MAY REPEAT IN 1HR Last administered on 12/05/16t 23:50; Start 12/05/16 at 16:15 Oxycodone HCl (Roxicodone) 5 mg PRN Q3HRS PRN PO BREAKTHROUGH PAIN; Start at 16:15 Morphine Sulfate 1 mg PRN Q1HR PRN IV PAIN; Start 12/05/16 at 16:15 Acetaminophen (Tylenol) 650 mg PRN Q6HRS PRN PO Headaches, Temp > 101.5F; Start 12/05/16 at 16:15 Docusate Sodium (Colace) 100 mg BID PO ; Start 12/05/16 at 21:00 Magnesium Hydroxide (Milk Of Magnesia) 2,400 mg PRN Q12HR PRN PO CONSTIPATION; Start 12/05/16 at 16:15 Bisacodyl (Dulcolax Supp) 10 mg PRN DAILY PRN [place] CONSTIPATION; Start 12/05/16 at 16:15 Amlodipine Besylate (Norvasc) 5 mg DAILY PO Last administered on 12/06/16 08: 11; Start 12/06/16 at 09:00 Atorvastatin Calcium (Lipitor) 10 mg QHS PO Last administered on 12/05/16 21: 05; Start 12/05/16 at 21:00 Calcitriol (Rocaltrol) 0.5 mcg DAILY PO ; Start 12/06/16 at 09:00 Cinacalcet (Sensipar) 30 mg DAILY PO ; Start 12/06/16 at 09:00 Ergocalciferol (Vitamin D2) 50,000 unit WEEKLY PO ; Start 12/12/16 at 09:00 Ferrous Sulfate (Feosol) 325 mg DAILY PO ; Start 12/06/16 at 09:00 Vitamin B Complex/ Vitamin C (Daniela-Wagner) 1 tab DAILY PO ; Start 12/06/16 at 09: 00 Furosemide (Lasix) 80 mg BID92 PO ; Start 12/06/16 at 09:00 Metoprolol Tartrate (Lopressor) 50 mg BID PO Last administered on 12/06/16 08 :12; Start 12/05/16 at 21:00 Sevelamer Carbonate (Renvela) 2,400 mg TIDWMEALS PO Last administered on 18:12; Start 12/05/16 at 17:00 Loperamide HCl (Imodium) 2 mg PRN Q15MIN PRN PO DIARRHEA; Start 12/05/16 at 17 :15 Prochlorperazine Maleate (Compazine) 5 mg PRN Q6HRS PRN PO NAUSEA/VOMITING; Start 12/05/16 at 17:15 Iohexol (Omnipaque 300 Mg/ml) 50 ml STK-MED ONCE .ROUTE ; Start 12/06/16 at 08: 29; Stop 12/06/16 at 08:30; Status DC Iohexol (Omnipaque 300 Mg/ml) 50 ml 1X ONCE IART ; Start 12/06/16 at 08:45; Stop 12/06/16 at 08:46; Status DC Info (Do NOT chart on this entry -- for MONITORING) 1 each PRN DAILY PRN MC SEE COMMENTS; Start 12/06/16 at 08:45; Stop 12/08/16 at 08:44 Active Scripts Active Flagyl (Metronidazole) 500 Mg Tablet 500 Mg PO Q8HRS Nephro-Wagner Tablet (Folic Acid/Vitamin B Comp W-C) 0.8 Mg Tablet 1 Tab PO DAILY Atorvastatin Calcium 10 Mg Tablet 10 Mg PO QHS Vitamin D2 (Ergocalciferol (Vitamin D2)) 50,000 Unit Capsule 50,000 Unit PO WEEKLY Calcitriol 0.25 Mcg Capsule 0.5 Mcg PO DAILY Reported Metoprolol Tartrate 50 Mg Tablet 1 Tab PO BID Amlodipine Besylate 5 Mg Tablet 5 Mg PO DAILY Sensipar (Cinacalcet Hcl) 30 Mg Tablet 1 Tab PO DAILY Aspirin 81 Mg Tab.chew 1 Tab PO DAILY Renvela (Sevelamer Carbonate) 800 Mg Tablet 3 Tab PO TIDWMEALS Ferrous Sulfate 325 Mg Tablet 1 Tab PO DAILY Lasix (Furosemide) 80 Mg Tablet 1 Tab PO BID Allergies Allergies: Coded Allergies: tramadol (Verified Adverse Reaction, Intermediate, dizziness, 07/10/15) ROS Review of System GEN: no Fevers no Chills EYES: no new Visual Complaints ENT: no EN Drainage no Hearing deficiets CVS: no Orthopnea no CP RESP: no SOB no CABALLERO GI: + Nausea (POA) + Vomiting (OA) : no Dysuria no Urgency HEME: no easy bruising no Palp Ly Nodes NEURO no Focal Weakness no Sz PSYCH: no Suicidal Ideation no Depression SKIN: no Rashes ENDO: no Polyuria or Polydipsia no Hot/Cold Intolerance MU SK: occ Arthralgia no Myalgia Physical Exam Physical Exam General Appearance: Awake Alert Oriented x 3 In no Distress Eyes: VIsion Unchanged Conjunctiva Normal EN: No EN Drainage Mucous Memb. moist Neck: no JVD min JVP Supple no Thyromegaly CVS: S1 S2 soft Murmur No Gallop No Rub no Edema Resp: no Rales no Rhonchi no Acc. Muscle use GI: BS +ve NO Bruit Non Tender + Distended : no CVA tenderness; no Suprapubic Tenderness SKIN: no Rashes Breast Exam deferred Mu.Sk: Adequate ROM no Muscle Atrophy Heme: Unable to palpate Obvious LAD no Splenomegaly NEURO: Good Strength and Tone Cranial Nerves II - XII grossly intact Psych: ? Depressed no Active hallucination Vital Signs Vital Signs Date Time Temp Pulse Resp B/P (MAP) Pulse Ox O2 Delivery O2 Flow Rate FiO2 12/06/16 08:12 82 134/87 12/06/16 07:00 98.7 20 95 Room Air 98.7 Assessment & Plan ESRD: CAPD as ordered: 1.5 % Dianeal, Q3hrs x 5 exchanges during the day, dry at noc, 2L Fills Anemia: Epogen as ordered; Transfuse as needed. HTN: Current BP meds reviewed. See orders for changes. poorly flowing PD Cath - appreciate IR help with same - will attempt PD here prior to D/c NV - check KUB, Lipase HypoAlbuminemia - suspect related to PD HypoCalcemia - check Mag, Lipase; hold Sensipar Discussed Plan of Care and prognosis etc. at length with pt and OP PD RN Labs Labs Laboratory Tests Test 12/05/16 14:25 White Blood Count 11.9 x10^3/uL (4.0-11.0) Red Blood Count 2.70 x10^6/uL (3.50-5.40) Hemoglobin 8.7 g/dL (12.0-15.5) Hematocrit 26.1 % (36.0-47.0) Mean Corpuscular Volume 97 fL (79-100) Mean Corpuscular Hemoglobin 32 pg (25-35) Mean Corpuscular Hemoglobin Concent 33 g/dL (31-37) Red Cell Distribution Width 15.1 % (11.5-14.5) Platelet Count 314 x10^3/uL (140-400) Neutrophils (%) (Auto) 79 % (31-73) Lymphocytes (%) (Auto) 9 % (24-48) Monocytes (%) (Auto) 9 % (0-9) Eosinophils (%) (Auto) 2 % (0-3) Basophils (%) (Auto) 1 % (0-3) Neutrophils # (Auto) 9.5 x10^3uL (1.8-7.7) Lymphocytes # (Auto) 1.1 x10^3/uL (1.0-4.8) Monocytes # (Auto) 1.1 x10^3/uL (0.0-1.1) Eosinophils # (Auto) 0.2 x10^3/uL (0.0-0.7) Basophils # (Auto) 0.1 x10^3/uL (0.0-0.2) Sodium Level 143 mmol/L (136-145) Potassium Level 4.0 mmol/L (3.5-5.1) Chloride Level 102 mmol/L (98-107) Carbon Dioxide Level 23 mmol/L (21-32) Anion Gap 18 (6-14) Blood Urea Nitrogen 53 mg/dL (7-20) Creatinine 10.4 mg/dL (0.6-1.0) Estimated GFR (Cockcroft-Gault) 3.7 BUN/Creatinine Ratio 5 (6-20) Glucose Level 86 mg/dL (70-99) Calcium Level 7.2 mg/dL (8.5-10.1) Total Bilirubin 0.3 mg/dL (0.2-1.0) Aspartate Amino Transf (AST/SGOT) 23 U/L (15-37) Alanine Aminotransferase (ALT/SGPT) 39 U/L (14-59) Alkaline Phosphatase 113 U/L (46-116) Total Protein 7.5 g/dL (6.4-8.2) Albumin 3.1 g/dL (3.4-5.0) Albumin/Globulin Ratio 0.7 (1.0-1.7) Laboratory Tests Test 12/05/16 14:25 White Blood Count 11.9 x10^3/uL (4.0-11.0) Red Blood Count 2.70 x10^6/uL (3.50-5.40) Hemoglobin 8.7 g/dL (12.0-15.5) Hematocrit 26.1 % (36.0-47.0) Mean Corpuscular Volume 97 fL (79-100) Mean Corpuscular Hemoglobin 32 pg (25-35) Mean Corpuscular Hemoglobin Concent 33 g/dL (31-37) Red Cell Distribution Width 15.1 % (11.5-14.5) Platelet Count 314 x10^3/uL (140-400) Neutrophils (%) (Auto) 79 % (31-73) Lymphocytes (%) (Auto) 9 % (24-48) Monocytes (%) (Auto) 9 % (0-9) Eosinophils (%) (Auto) 2 % (0-3) Basophils (%) (Auto) 1 % (0-3) Neutrophils # (Auto) 9.5 x10^3uL (1.8-7.7) Lymphocytes # (Auto) 1.1 x10^3/uL (1.0-4.8) Monocytes # (Auto) 1.1 x10^3/uL (0.0-1.1) Eosinophils # (Auto) 0.2 x10^3/uL (0.0-0.7) Basophils # (Auto) 0.1 x10^3/uL (0.0-0.2) Sodium Level 143 mmol/L (136-145) Potassium Level 4.0 mmol/L (3.5-5.1) Chloride Level 102 mmol/L (98-107) Carbon Dioxide Level 23 mmol/L (21-32) Anion Gap 18 (6-14) Blood Urea Nitrogen 53 mg/dL (7-20) Creatinine 10.4 mg/dL (0.6-1.0) Estimated GFR (Cockcroft-Gault) 3.7 BUN/Creatinine Ratio 5 (6-20) Glucose Level 86 mg/dL (70-99) Calcium Level 7.2 mg/dL (8.5-10.1) Total Bilirubin 0.3 mg/dL (0.2-1.0) Aspartate Amino Transf (AST/SGOT) 23 U/L (15-37) Alanine Aminotransferase (ALT/SGPT) 39 U/L (14-59) Alkaline Phosphatase 113 U/L (46-116) Total Protein 7.5 g/dL (6.4-8.2) Albumin 3.1 g/dL (3.4-5.0) Albumin/Globulin Ratio 0.7 (1.0-1.7) YASMEEN CARD MD Dec 06, 2016 09:05
[2016-12-06] MEDS ORDERED: MAGNESIUM SULFATE 2GM 50 ML IV PRN (09:15)
[2016-12-06] MEDS: CALCIUM CARBONATE 500 MG TAB.CHEW PO SCH ×3 (09:45→17:18)
--- NOTE | 2016-12-06 10:46 | RAD ---
Indication nausea yesterday. An upright film of the abdomen was obtained. No prior plain film imaging of the abdomen is available. There is no gross free air. The abdominal gas pattern is normal. Peritoneal dialysis catheter is noted. No organomegaly or abnormal calculi are seen. IMPRESSION: No acute finding seen on KUB
[2016-12-06] MEDS: DOCUSATE SODIUM 100 MG CAPSULE. PO SCH ×2 (10:51→21:17)
[2016-12-06] MEDS: FOLIC/VIT B COMP W-C (RENAL) TABLET. PO SCH (10:51)
[2016-12-06] MEDS: FERROUS SULFATE 325 MG TABLET. PO SCH (10:51)
[2016-12-06] MEDS: CALCITRIOL 0.25 MCG CAPSULE. PO SCH (10:52)
[2016-12-06] MEDS: FUROSEMIDE 80 MG TABLET. PO SCH ×2 (10:52→14:30)
[2016-12-06 11:00] VITALS: BP 138/83
--- NOTE | 2016-12-06 11:41 | CONS ---
DATE OF CONSULTATION: PRIMARY PHYSICIAN: Dr. Hughes. REASON FOR CONSULTATION: Poorly functioning PD catheter. HISTORY OF PRESENT ILLNESS: Vee is a pleasant 66-year-old female followed by Dr. Lovell for her ESRD needs. For the last week or so, she has had some issues with her PD catheter and was recently evaluated for the same in an outpatient setting. She was scheduled to get a KUB done as an outpatient for evaluation for constipation; however, she did not follow through with that and came in yesterday after she was unable to drain from her PD catheter after her last fill yesterday morning. She did complain of some nausea, vomiting at presentation. She was feeling poorly. She was somewhat distended, was also short of breath. She had called the on-call PD nurse and was summoned to go to the ER. She did have a bowel moment while in the ER. She was admitted with the plan to have IR evaluate her catheter. This has been done so far and her PD catheter is noted to be draining in the IR suite based on my conversation with the patient and the nurse. She will be initiated on peritoneal dialysis and we will reevaluate the same. For rest of the details, see electronic records. YASMEEN CARD MD DR: MARY/marixa JOB#: [id number] / [id number]
--- NOTE | 2016-12-06 13:07 | RAD ---
Fluoroscopic evaluation of a peritoneal dialysis catheter 12/06/2016 Indication: Catheter malfunction Discussion: The risks and benefits of the procedure were discussed the patient. Informed consent was obtained. Timeout procedure was performed. Fluoroscopic evaluation demonstrates a peritoneal dialysis catheter coiled in right lower quadrant. Contrast and saline were administered through the catheter flowing freely from the catheter without evidence of significant loculation. A guidewire was advanced through the catheter, with initially some resistance at the end of the catheter which was subsequently relieved. Wire was found to extend freely into the peritoneum. Catheter position could not be changed with a guidewire. Catheter was flushed. Following this fluid was seen to be freely flowing from the catheter. The catheter secured in place and a sterile dressing applied. No immediate complications were identified. Fluoroscopy time 1.6 minutes Dose area product 6 ocasio centimeter squared Impression: Peritoneal dialysis catheter in place tip in the right lower quadrant.
[2016-12-06 15:00] VITALS: BP 132/72
--- NOTE | 2016-12-06 15:43 | PDOC ---
PROGRESS NOTES Chief Complaint Chief Complaint 1. MAlfunctioning PD cath 2. Diarrhea 3. LUpus hence on HD /ESRD 4. Anemia of ESRD 5. 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, does not feel well try to cycle PD Send for stool studies Resume home meds Dw pt and sister seen at ER Vitals Vitals Vital Signs Date Time Temp Pulse Resp B/P (MAP) Pulse Ox O2 Delivery O2 Flow Rate FiO2 12/06/16 15:00 97.5 86 20 132/72 (92) 94 Room Air 97.5 Physical Exam General: Alert, Oriented X3, Cooperative, No acute distress Lungs: Clear Abdomen: Soft, Other (PD cath left side, no tenderness, no guarding) Extremities: No clubbing, No cyanosis, No edema, Normal pulses, No tenderness/ swelling Skin: No rashes, No breakdown, No significant lesion Labs LABS Laboratory Tests Test 12/06/16 09:50 Lipase 433 U/L (73-393) Comment Review of Relevant I have reviewed the following items christos (where applicable) has been applied. Labs Laboratory Tests Test 12/05/16 14:25 12/06/16 09:50 White Blood Count 11.9 x10^3/uL (4.0-11.0) Red Blood Count 2.70 x10^6/uL (3.50-5.40) Hemoglobin 8.7 g/dL (12.0-15.5) Hematocrit 26.1 % (36.0-47.0) Mean Corpuscular Volume 97 fL (79-100) Mean Corpuscular Hemoglobin 32 pg (25-35) Mean Corpuscular Hemoglobin Concent 33 g/dL (31-37) Red Cell Distribution Width 15.1 % (11.5-14.5) Platelet Count 314 x10^3/uL (140-400) Neutrophils (%) (Auto) 79 % (31-73) Lymphocytes (%) (Auto) 9 % (24-48) Monocytes (%) (Auto) 9 % (0-9) Eosinophils (%) (Auto) 2 % (0-3) Basophils (%) (Auto) 1 % (0-3) Neutrophils # (Auto) 9.5 x10^3uL (1.8-7.7) Lymphocytes # (Auto) 1.1 x10^3/uL (1.0-4.8) Monocytes # (Auto) 1.1 x10^3/uL (0.0-1.1) Eosinophils # (Auto) 0.2 x10^3/uL (0.0-0.7) Basophils # (Auto) 0.1 x10^3/uL (0.0-0.2) Sodium Level 143 mmol/L (136-145) Potassium Level 4.0 mmol/L (3.5-5.1) Chloride Level 102 mmol/L (98-107) Carbon Dioxide Level 23 mmol/L (21-32) Anion Gap 18 (6-14) Blood Urea Nitrogen 53 mg/dL (7-20) Creatinine 10.4 mg/dL (0.6-1.0) Estimated GFR (Cockcroft-Gault) 3.7 BUN/Creatinine Ratio 5 (6-20) Glucose Level 86 mg/dL (70-99) Calcium Level 7.2 mg/dL (8.5-10.1) Total Bilirubin 0.3 mg/dL (0.2-1.0) Aspartate Amino Transf (AST/SGOT) 23 U/L (15-37) Alanine Aminotransferase (ALT/SGPT) 39 U/L (14-59) Alkaline Phosphatase 113 U/L (46-116) Total Protein 7.5 g/dL (6.4-8.2) Albumin 3.1 g/dL (3.4-5.0) Albumin/Globulin Ratio 0.7 (1.0-1.7) Lipase 433 U/L (73-393) Laboratory Tests Test 12/06/16 09:50 Lipase 433 U/L (73-393) Medications Current Medications Ondansetron HCl (Zofran) 4 mg PRN Q6HRS PRN IV NAUSEA/VOMITING; Start at 16:15 Prochlorperazine Edisylate (Compazine) 10 mg PRN Q6HRS PRN IV NAUSEA/VOMITING; Start 12/05/16 at 16:15 Prochlorperazine (Compazine) 25 mg PRN Q12HR PRN [place] NAUSEA/VOMITING; Start at 16:15 Al Hydroxide/Mg Hydroxide (Mylanta Plus Xs) 30 ml PRN Q3HRS PRN PO HEARTBURN / GAS; Start 12/05/16 at 16:15; Stop 12/06/16 at 09:34; Status DC Calcium Carbonate/ Glycine (Tums) 500 mg PRN Q3HRS PRN PO UPSET STOMACH; Start 12/05/16 at 16:15; Stop 12/06/16 at 09:34; Status DC Zolpidem Tartrate (Ambien) 5 mg PRN QHS PRN PO INSOMNIA, MAY REPEAT IN 1HR Last administered on 12/05/16 23:50; Start 12/05/16 at 16:15 Oxycodone HCl (Roxicodone) 5 mg PRN Q3HRS PRN PO BREAKTHROUGH PAIN; Start at 16:15 Morphine Sulfate 1 mg PRN Q1HR PRN IV PAIN; Start 12/05/16 at 16:15 Acetaminophen (Tylenol) 650 mg PRN Q6HRS PRN PO Headaches, Temp > 101.5F; Start 12/05/16 at 16:15 Docusate Sodium (Colace) 100 mg BID PO Last administered on 12/06/16 10:51; Start 12/05/16 at 21:00 Magnesium Hydroxide (Milk Of Magnesia) 2,400 mg PRN Q12HR PRN PO CONSTIPATION; Start 12/05/16 at 16:15 Bisacodyl (Dulcolax Supp) 10 mg PRN DAILY PRN [place] CONSTIPATION; Start 12/05/16 at 16:15 Amlodipine Besylate (Norvasc) 5 mg DAILY PO Last administered on 12/06/16 08: 11; Start 12/06/16 at 09:00 Atorvastatin Calcium (Lipitor) 10 mg QHS PO Last administered on 12/05/16 21: 05; Start 12/05/16 at 21:00 Calcitriol (Rocaltrol) 0.5 mcg DAILY PO Last administered on 12/06/16 10:52; Start 12/06/16 at 09:00 Cinacalcet (Sensipar) 30 mg DAILY PO ; Start 12/06/16 at 09:00; Stop 12/06/16 at 09:34; Status DC Ergocalciferol (Vitamin D2) 50,000 unit WEEKLY PO ; Start 12/12/16 at 09:00 Ferrous Sulfate (Feosol) 325 mg DAILY PO Last administered on 12/06/16 10:51 ; Start 12/06/16 at 09:00 Vitamin B Complex/ Vitamin C (Daniela-Wagner) 1 tab DAILY PO Last administered on 10:51; Start 12/06/16 at 09:00 Furosemide (Lasix) 80 mg [id number] PO Last administered on 12/06/16 14:30; Start 12/06/16 at 09:00 Metoprolol Tartrate (Lopressor) 50 mg BID PO Last administered on 12/06/16 08 :12; Start 12/05/16 at 21:00 Sevelamer Carbonate (Renvela) 2,400 mg TIDWMEALS PO Last administered on 12:25; Start 12/05/16 at 17:00 Loperamide HCl (Imodium) 2 mg PRN Q15MIN PRN PO DIARRHEA; Start 12/05/16 at 17 :15 Prochlorperazine Maleate (Compazine) 5 mg PRN Q6HRS PRN PO NAUSEA/VOMITING; Start 12/05/16 at 17:15 Iohexol (Omnipaque 300 Mg/ml) 50 ml STK-MED ONCE .ROUTE ; Start 12/06/16 at 08: 29; Stop 12/06/16 at 08:30; Status DC Iohexol (Omnipaque 300 Mg/ml) 50 ml 1X ONCE IART Last administered on 08:45; Start 12/06/16 at 08:45; Stop 12/06/16 at 08:46; Status DC Info (Do NOT chart on this entry -- for MONITORING) 1 each PRN DAILY PRN MC SEE COMMENTS; Start 12/06/16 at 08:45; Stop 12/08/16 at 08:44 Magnesium Sulfate/ Dextrose 50 ml @ 25 mls/hr PRN DAILY PRN IV for Mag < 1.7 on am labs; Start 12/06/16 at 09:15 Calcium Carbonate/ Glycine (Tums) 1,000 mg TIDAC PO Last administered on 12:25; Start 12/06/16 at 09:45 Darbepoetin [place] (Aranesp) 60 mcg WEEKLYHS SQ ; Start 12/06/16 at 21:00 Active Scripts Active Flagyl (Metronidazole) 500 Mg Tablet 500 Mg PO Q8HRS Nephro-Wagner Tablet (Folic Acid/Vitamin B Comp W-C) 0.8 Mg Tablet 1 Tab PO DAILY Atorvastatin Calcium 10 Mg Tablet 10 Mg PO QHS Vitamin D2 (Ergocalciferol (Vitamin D2)) 50,000 Unit Capsule 50,000 Unit PO WEEKLY Calcitriol 0.25 Mcg Capsule 0.5 Mcg PO DAILY Reported Metoprolol Tartrate 50 Mg Tablet 1 Tab PO BID Amlodipine Besylate 5 Mg Tablet 5 Mg PO DAILY Sensipar (Cinacalcet Hcl) 30 Mg Tablet 1 Tab PO DAILY Aspirin 81 Mg Tab.chew 1 Tab PO DAILY Renvela (Sevelamer Carbonate) 800 Mg Tablet 3 Tab PO TIDWMEALS Ferrous Sulfate 325 Mg Tablet 1 Tab PO DAILY Lasix (Furosemide) 80 Mg Tablet 1 Tab PO BID Vitals/I & O Vital Sign - Last 24 Hours 12/05/16 12/05/16 12/05/16 12/05/16 17:02 17:45 18:34 19:00 Temp 97.6 98.2 97.6 98.2 Pulse 71 91 89 Resp 20 18 B/P (MAP) 128/77 (94) 149/99 (116) 143/89 (107) Pulse Ox 91 99 95 O2 Delivery Room Air Room Air Room Air 12/05/16 12/05/16 12/05/16 12/06/16 20:24 21:06 23:00 03:00 Temp 98.2 98.4 98.2 98.4 Pulse 89 87 83 Resp 18 16 B/P (MAP) 143/89 138/92 (107) 123/79 (94) Pulse Ox 94 91 O2 Delivery Room Air 12/06/16 12/06/16 12/06/16 12/06/16 07:00 08:00 08:11 08:12 Temp 98.7 98.7 Pulse 82 82 82 Resp 20 B/P (MAP) 134/87 (103) 134/87 134/87 Pulse Ox 95 O2 Delivery Room Air Room Air 12/06/16 12/06/16 11:00 15:00 Temp 97.5 97.5 97.5 97.5 Pulse 83 86 Resp 20 20 B/P (MAP) 138/83 (101) 132/72 (92) Pulse Ox 92 94 O2 Delivery Room Air Room Air CHIKA GOMEZ MD Dec 06, 2016 15:43
[2016-12-06 17:02] LABS: BF CLARITY CLEAR; BF COLOR YELLOW
[2016-12-06 19:00] VITALS: BP 149/105
[2016-12-06] MEDS ORDERED: DARBEPOETIN ALFA 60 MCG/0.3 ML DISP.SYRIN. SQ SCH (21:00)
[2016-12-06] MEDS: ATORVASTATIN CALCIUM 10 MG TABLET. PO SCH (21:17)
[2016-12-06] MEDS: ZOLPIDEM 5 MG TABLET. PO PRN (21:22)
[2016-12-06 23:00] VITALS: BP 139/85
[2016-12-07] VITALS (9 sets, daily range): BP systolic 121–161; BP diastolic 71–102
[2016-12-07] MEDS: CALCIUM CARBONATE 500 MG TAB.CHEW PO SCH ×3 (07:30→17:52)
[2016-12-07] MEDS: SEVELAMER CARBONATE 800 MG TABLET. PO SCH ×3 (08:00→17:52)
[2016-12-07] MEDS: DOCUSATE SODIUM 100 MG CAPSULE. PO SCH ×2 (09:00→20:35)
[2016-12-07] MEDS: FOLIC/VIT B COMP W-C (RENAL) TABLET. PO SCH (09:00)
[2016-12-07] MEDS: METOPROLOL TART IMMED RELEASE 50 MG TABLET. PO SCH ×2 (09:00→20:36)
[2016-12-07] MEDS: amLODIPine BESYLATE 5 MG TABLET PO SCH (09:00)
[2016-12-07] MEDS: CALCITRIOL 0.25 MCG CAPSULE. PO SCH (09:00)
[2016-12-07] MEDS: FERROUS SULFATE 325 MG TABLET. PO SCH (09:00)
[2016-12-07] MEDS ORDERED: MAGNESIUM SULFATE 2GM 50 ML IV PRN (09:15)
--- NOTE | 2016-12-07 09:33 | PDOC ---
SUBJECTIVE ROS ESRD Did not sleep well overnite CVS: ? Orthopnea, no CP RESP: +ve SOB, ? CABALLERO GI: no Nausea, no Vomiting : no Dysuria, no Urgency OBJECTIVE Vital Signs Vital Signs Date Time Temp Pulse Resp B/P (MAP) Pulse Ox O2 Delivery O2 Flow Rate FiO2 12/07/16 07:30 97.7 93 18 153/87 (109) 93 Room Air 97.7 I & 0 Intake and Output 12/08/16 07:00 # Voids 1 # Bowel Movements 1 PHYSICAL EXAM Physical Exam General Appearance: Awake Alert Oriented x 3 In no Distress Eyes: VIsion Unchanged Conjunctiva Normal EN: No EN Drainage Mucous Memb. moist Neck: no JVD min JVP Supple no Thyromegaly CVS: S1 S2 soft Murmur No Gallop No Rub no Edema Resp: no Rales no Rhonchi no Acc. Muscle use GI: BS +ve NO Bruit Non Tender + Distended : no CVA tenderness; no Suprapubic Tenderness Assessment & Plan (Labs for today are NA yet) ESRD: CAPD as ordered: 1.5 % Dianeal, Q3hrs x 5 exchanges during the day, dry at noc, 2L Fills; Will resume after seen by Dr Desir and once PD Cath is working well Anemia: Epogen as ordered; Transfuse as needed. HTN: Current BP meds reviewed. See orders for changes. poorly flowing PD Cath - appreciate IR help with same but still having slow drains. May need omentectomy if Miralax does not work. Some constipation/ Stool in colon cannot be ruled out on KUB NV - ? Asso with ^ed Lipase vs due to constipation HypoAlbuminemia - suspect related to PD HypoCalcemia - checking Mag, noted ^ed Lipase; hold Sensipar Subj SOB - cannot r/o element of fl overload - IV Lasix as ordered, Informed pt about possibly needing HD - she declined HD Cath placement at this time until she saw Dr Desir Discussed Plan of Care and prognosis etc. at length with pt and OP PD RN COMMENT/RELEVANT DATA Meds Current Medications Medications (Trade) Dose Ordered Sig/Marcus Start Time Stop Time Status Last Admin Dose Admin Acetaminophen (Tylenol) 650 mg PRN Q6HRS PRN 12/05/16 16:15 Al Hydroxide/Mg Hydroxide (Mylanta Plus Xs) 30 ml PRN Q3HRS PRN 12/05/16 16:15 12/06/16 09:34 DC Amlodipine Besylate (Norvasc) 5 mg DAILY 12/06/16 09:00 12/06/16 08:11 5 MG Atorvastatin Calcium (Lipitor) 10 mg QHS 12/05/16 21:00 12/06/16 21:17 10 MG Bisacodyl (Dulcolax Supp) 10 mg PRN DAILY PRN 12/05/16 16:15 Calcitriol (Rocaltrol) 0.5 mcg DAILY 12/06/16 09:00 12/06/16 10:52 0.5 MCG Calcium Carbonate/ Glycine (Tums) 1,000 mg TIDAC 12/06/16 09:45 12/06/16 17:18 1,000 MG Cinacalcet (Sensipar) 30 mg DAILY 12/06/16 09:00 12/06/16 09:34 DC Darbepoetin [place] (Aranesp) 60 mcg WEEKLYHS 12/06/16 21:00 12/06/16 21:22 60 MCG Docusate Sodium (Colace) 100 mg BID 12/05/16 21:00 12/06/16 21:17 100 MG Ergocalciferol (Vitamin D2) 50,000 unit WEEKLY 12/12/16 09:00 Ferrous Sulfate (Feosol) 325 mg DAILY 12/06/16 09:00 12/06/16 10:51 325 MG Furosemide (Lasix) 80 mg BID92 12/06/16 09:00 12/06/16 14:30 80 MG Info (Do NOT chart on this entry -- for MONITORING) 1 each PRN DAILY PRN 12/06/16 08:45 12/08/16 08:44 Iohexol (Omnipaque 300 Mg/ml) 50 ml 1X ONCE 12/06/16 08:45 12/06/16 08:46 DC 12/06/16 08:45 20 ML Loperamide HCl (Imodium) 2 mg PRN Q15MIN PRN 12/05/16 17:15 Magnesium Hydroxide (Milk Of Magnesia) 2,400 mg PRN Q12HR PRN 12/05/16 16:15 Magnesium Sulfate/ Dextrose 50 ml @ 25 mls/hr PRN DAILY PRN 12/06/16 09:15 Metoprolol Tartrate (Lopressor) 50 mg BID 12/05/16 21:00 12/06/16 21:17 50 MG Morphine Sulfate 1 mg PRN Q1HR PRN 12/05/16 16:15 Ondansetron HCl (Zofran) 4 mg PRN Q6HRS PRN 12/05/16 16:15 Oxycodone HCl (Roxicodone) 5 mg PRN Q3HRS PRN 12/05/16 16:15 Prochlorperazine (Compazine) 25 mg PRN Q12HR PRN 12/05/16 16:15 Prochlorperazine Edisylate (Compazine) 10 mg PRN Q6HRS PRN 12/05/16 16:15 Prochlorperazine Maleate (Compazine) 5 mg PRN Q6HRS PRN 12/05/16 17:15 Sevelamer Carbonate (Renvela) 2,400 mg TIDWMEALS 12/05/16 17:00 12/06/16 17:18 2,400 MG Vitamin B Complex/ Vitamin C (Daniela-Wagner) 1 tab DAILY 12/06/16 09:00 12/06/16 10:51 1 TAB Zolpidem Tartrate (Ambien) 5 mg PRN QHS PRN 12/05/16 16:15 12/06/16 21:22 5 MG Lab Laboratory Tests Test 12/06/16 09:50 12/06/16 14:30 Lipase 433 U/L (73-393) Body Fluid Source Peritoneal Body Fluid Color Yellow Body Fluid Clarity Clear Body Fluid Nucleated Cells 40 /cmm Body Fluid Mononuclear WBCs (%) 74 % Body Fluid Polymorphonuclear Cells 26 % Body Fluid Total RBCs Counted 24 /cmm Body Fluid Other Cells (%) 0 % YASMEEN CARD MD Dec 07, 2016 09:33
[2016-12-07] MEDS: POLYETHYLENE GLYCOL 3350 17 GM PACKET. PO SCH (10:00)
[2016-12-07 10:08] LABS: ALBUMIN 2.8 g/dL (3.4-5.0); CALCIUM 7.2 mg/dL (8.5-10.1); CREATININE 10.9 mg/dL (0.6-1.0); GFR 3.5; PHOSPHORUS 7.4 mg/dL (2.6-4.7); POTASSIUM 4.5 mmol/L (3.5-5.1)
--- NOTE | 2016-12-07 10:30 | PDOC ---
PROGRESS NOTES Chief Complaint Chief Complaint 1. Malfunctioning PD cath, fluid overload 2. weakness, fatigue and insomnia 3. Lupus 4. Anemia of ESRD 5. 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, does not feel well try to cycle PD Send for stool studies Resume home meds Dw pt and sister seen at ER Vitals Vitals Vital Signs Date Time Temp Pulse Resp B/P (MAP) Pulse Ox O2 Delivery O2 Flow Rate FiO2 12/07/16 08:00 Room Air 92.0 12/07/16 07:30 97.7 93 18 153/87 (109) 93 97.7 Physical Exam General: Alert, Oriented X3, Cooperative, No acute distress Heart: Regular rate, No murmurs Lungs: Clear Abdomen: Soft, Other (PD cath left side, no tenderness, no guarding) Extremities: No clubbing, No cyanosis, No edema, Normal pulses, No tenderness/ swelling Skin: No rashes, No breakdown, No significant lesion Labs LABS Laboratory Tests Test 12/06/16 14:30 12/07/16 09:35 Body Fluid Source Peritoneal Body Fluid Color Yellow Body Fluid Clarity Clear Body Fluid Nucleated Cells 40 /cmm Body Fluid Mononuclear WBCs (%) 74 % Body Fluid Polymorphonuclear Cells 26 % Body Fluid Total RBCs Counted 24 /cmm Body Fluid Other Cells (%) 0 % Hemoglobin 8.2 g/dL (12.0-15.5) Sodium Level 143 mmol/L (136-145) Potassium Level 4.5 mmol/L (3.5-5.1) Chloride Level 104 mmol/L (98-107) Carbon Dioxide Level 23 mmol/L (21-32) Anion Gap 16 (6-14) Blood Urea Nitrogen 59 mg/dL (7-20) Creatinine 10.9 mg/dL (0.6-1.0) Estimated GFR (Cockcroft-Gault) 3.5 Glucose Level 91 mg/dL (70-99) Calcium Level 7.2 mg/dL (8.5-10.1) Phosphorus Level 7.4 mg/dL (2.6-4.7) Magnesium Level 1.4 mg/dL (1.8-2.4) Albumin 2.8 g/dL (3.4-5.0) Lipase 556 U/L (73-393) Review of Systems Review of Systems no n.v/d Comment Review of Relevant I have reviewed the following items christos (where applicable) has been applied. Labs Laboratory Tests Test 12/05/16 14:25 12/06/16 09:50 12/06/16 14:30 12/07/16 09:35 White Blood Count 11.9 x10^3/uL (4.0-11.0) Red Blood Count 2.70 x10^6/uL (3.50-5.40) Hemoglobin 8.7 g/dL (12.0-15.5) 8.2 g/dL (12.0-15.5) Hematocrit 26.1 % (36.0-47.0) Mean Corpuscular Volume 97 fL (79-100) Mean Corpuscular Hemoglobin 32 pg (25-35) Mean Corpuscular Hemoglobin Concent 33 g/dL (31-37) Red Cell Distribution Width 15.1 % (11.5-14.5) Platelet Count 314 x10^3/uL (140-400) Neutrophils (%) (Auto) 79 % (31-73) Lymphocytes (%) (Auto) 9 % (24-48) Monocytes (%) (Auto) 9 % (0-9) Eosinophils (%) (Auto) 2 % (0-3) Basophils (%) (Auto) 1 % (0-3) Neutrophils # (Auto) 9.5 x10^3uL (1.8-7.7) Lymphocytes # (Auto) 1.1 x10^3/uL (1.0-4.8) Monocytes # (Auto) 1.1 x10^3/uL (0.0-1.1) Eosinophils # (Auto) 0.2 x10^3/uL (0.0-0.7) Basophils # (Auto) 0.1 x10^3/uL (0.0-0.2) Sodium Level 143 mmol/L (136-145) 143 mmol/L (136-145) Potassium Level 4.0 mmol/L (3.5-5.1) 4.5 mmol/L (3.5-5.1) Chloride Level 102 mmol/L (98-107) 104 mmol/L (98-107) Carbon Dioxide Level 23 mmol/L (21-32) 23 mmol/L (21-32) Anion Gap 18 (6-14) 16 (6-14) Blood Urea Nitrogen 53 mg/dL (7-20) 59 mg/dL (7-20) Creatinine 10.4 mg/dL (0.6-1.0) 10.9 mg/dL (0.6-1.0) Estimated GFR (Cockcroft-Gault) 3.7 3.5 BUN/Creatinine Ratio 5 (6-20) Glucose Level 86 mg/dL (70-99) 91 mg/dL (70-99) Calcium Level 7.2 mg/dL (8.5-10.1) 7.2 mg/dL (8.5-10.1) Total Bilirubin 0.3 mg/dL (0.2-1.0) Aspartate Amino Transf (AST/SGOT) 23 U/L (15-37) Alanine Aminotransferase (ALT/SGPT) 39 U/L (14-59) Alkaline Phosphatase 113 U/L (46-116) Total Protein 7.5 g/dL (6.4-8.2) Albumin 3.1 g/dL (3.4-5.0) 2.8 g/dL (3.4-5.0) Albumin/Globulin Ratio 0.7 (1.0-1.7) Lipase 433 U/L (73-393) 556 U/L (73-393) Body Fluid Source Peritoneal Body Fluid Color Yellow Body Fluid Clarity Clear Body Fluid Nucleated Cells 40 /cmm Body Fluid Mononuclear WBCs (%) 74 % Body Fluid Polymorphonuclear Cells 26 % Body Fluid Total RBCs Counted 24 /cmm Body Fluid Other Cells (%) 0 % Phosphorus Level 7.4 mg/dL (2.6-4.7) Magnesium Level 1.4 mg/dL (1.8-2.4) Laboratory Tests Test 12/06/16 14:30 12/07/16 09:35 Body Fluid Source Peritoneal Body Fluid Color Yellow Body Fluid Clarity Clear Body Fluid Nucleated Cells 40 /cmm Body Fluid Mononuclear WBCs (%) 74 % Body Fluid Polymorphonuclear Cells 26 % Body Fluid Total RBCs Counted 24 /cmm Body Fluid Other Cells (%) 0 % Hemoglobin 8.2 g/dL (12.0-15.5) Sodium Level 143 mmol/L (136-145) Potassium Level 4.5 mmol/L (3.5-5.1) Chloride Level 104 mmol/L (98-107) Carbon Dioxide Level 23 mmol/L (21-32) Anion Gap 16 (6-14) Blood Urea Nitrogen 59 mg/dL (7-20) Creatinine 10.9 mg/dL (0.6-1.0) Estimated GFR (Cockcroft-Gault) 3.5 Glucose Level 91 mg/dL (70-99) Calcium Level 7.2 mg/dL (8.5-10.1) Phosphorus Level 7.4 mg/dL (2.6-4.7) Magnesium Level 1.4 mg/dL (1.8-2.4) Albumin 2.8 g/dL (3.4-5.0) Lipase 556 U/L (73-393) Medications Current Medications Ondansetron HCl (Zofran) 4 mg PRN Q6HRS PRN IV NAUSEA/VOMITING; Start at 16:15 Prochlorperazine Edisylate (Compazine) 10 mg PRN Q6HRS PRN IV NAUSEA/VOMITING; Start 12/05/16 at 16:15 Prochlorperazine (Compazine) 25 mg PRN Q12HR PRN [place] NAUSEA/VOMITING; Start at 16:15 Al Hydroxide/Mg Hydroxide (Mylanta Plus Xs) 30 ml PRN Q3HRS PRN PO HEARTBURN / GAS; Start 12/05/16 at 16:15; Stop 12/06/16 at 09:34; Status DC Calcium Carbonate/ Glycine (Tums) 500 mg PRN Q3HRS PRN PO UPSET STOMACH; Start 12/05/16 at 16:15; Stop 12/06/16 at 09:34; Status DC Zolpidem Tartrate (Ambien) 5 mg PRN QHS PRN PO INSOMNIA, MAY REPEAT IN 1HR Last administered on 12/06/16t 21:22; Start 12/05/16 at 16:15 Oxycodone HCl (Roxicodone) 5 mg PRN Q3HRS PRN PO BREAKTHROUGH PAIN; Start at 16:15 Morphine Sulfate 1 mg PRN Q1HR PRN IV PAIN; Start 12/05/16 at 16:15; Stop at 09:39; Status DC Acetaminophen (Tylenol) 650 mg PRN Q6HRS PRN PO Headaches, Temp > 101.5F; Start 12/05/16 at 16:15 Docusate Sodium (Colace) 100 mg BID PO Last administered on 12/06/16 21:17; Start 12/05/16 at 21:00 Magnesium Hydroxide (Milk Of Magnesia) 2,400 mg PRN Q12HR PRN PO CONSTIPATION; Start 12/05/16 at 16:15 Bisacodyl (Dulcolax Supp) 10 mg PRN DAILY PRN [place] CONSTIPATION; Start 12/05/16 at 16:15 Amlodipine Besylate (Norvasc) 5 mg DAILY PO Last administered on 12/06/16 08: 11; Start 12/06/16 at 09:00 Atorvastatin Calcium (Lipitor) 10 mg QHS PO Last administered on 12/06/16 21: 17; Start 12/05/16 at 21:00 Calcitriol (Rocaltrol) 0.5 mcg DAILY PO Last administered on 12/06/16 10:52; Start 12/06/16 at 09:00 Cinacalcet (Sensipar) 30 mg DAILY PO ; Start 12/06/16 at 09:00; Stop 12/06/16 at 09:34; Status DC Ergocalciferol (Vitamin D2) 50,000 unit WEEKLY PO ; Start 12/12/16 at 09:00 Ferrous Sulfate (Feosol) 325 mg DAILY PO Last administered on 12/06/16 10:51 ; Start 12/06/16 at 09:00 Vitamin B Complex/ Vitamin C (Daniela-Wagner) 1 tab DAILY PO Last administered on 10:51; Start 12/06/16 at 09:00 Furosemide (Lasix) 80 mg BID92 PO Last administered on 12/06/16 14:30; Start 12/06/16 at 09:00; Stop 12/07/16 at 09:38; Status DC Metoprolol Tartrate (Lopressor) 50 mg BID PO Last administered on 12/06/16 21 :17; Start 12/05/16 at 21:00 Sevelamer Carbonate (Renvela) 2,400 mg TIDWMEALS PO Last administered on 17:18; Start 12/05/16 at 17:00 Loperamide HCl (Imodium) 2 mg PRN Q15MIN PRN PO DIARRHEA; Start 12/05/16 at 17 :15 Prochlorperazine Maleate (Compazine) 5 mg PRN Q6HRS PRN PO NAUSEA/VOMITING; Start 12/05/16 at 17:15 Iohexol (Omnipaque 300 Mg/ml) 50 ml STK-MED ONCE .ROUTE ; Start 12/06/16 at 08: 29; Stop 12/06/16 at 08:30; Status DC Iohexol (Omnipaque 300 Mg/ml) 50 ml 1X ONCE IART Last administered on 08:45; Start 12/06/16 at 08:45; Stop 12/06/16 at 08:46; Status DC Info (Do NOT chart on this entry -- for MONITORING) 1 each PRN DAILY PRN MC SEE COMMENTS; Start 12/06/16 at 08:45; Stop 12/08/16 at 08:44 Magnesium Sulfate/ Dextrose 50 ml @ 25 mls/hr PRN DAILY PRN IV for Mag < 1.7 on am labs; Start 12/06/16 at 09:15 Calcium Carbonate/ Glycine (Tums) 1,000 mg TIDAC PO Last administered on 17:18; Start 12/06/16 at 09:45 Darbepoetin [place] (Aranesp) 60 mcg WEEKLYHS SQ Last administered on 12/06/16t 21:22; Start 12/06/16 at 21:00 Magnesium Sulfate/ Dextrose 50 ml @ 25 mls/hr PRN DAILY PRN IV for Mag < 1.7 on am labs; Start 12/07/16 at 09:15 Polyethylene Glycol (miraLAX PACKET) 17 gm DAILY PO ; Start 12/07/16 at 10:00 Furosemide (Lasix) 80 mg TID IVP ; Start 12/07/16 at 14:00; Stop 12/09/16 at 09:00 Active Scripts Active Flagyl (Metronidazole) 500 Mg Tablet 500 Mg PO Q8HRS Nephro-Wagner Tablet (Folic Acid/Vitamin B Comp W-C) 0.8 Mg Tablet 1 Tab PO DAILY Atorvastatin Calcium 10 Mg Tablet 10 Mg PO QHS Vitamin D2 (Ergocalciferol (Vitamin D2)) 50,000 Unit Capsule 50,000 Unit PO WEEKLY Calcitriol 0.25 Mcg Capsule 0.5 Mcg PO DAILY Reported Metoprolol Tartrate 50 Mg Tablet 1 Tab PO BID Amlodipine Besylate 5 Mg Tablet 5 Mg PO DAILY Sensipar (Cinacalcet Hcl) 30 Mg Tablet 1 Tab PO DAILY Aspirin 81 Mg Tab.chew 1 Tab PO DAILY Renvela (Sevelamer Carbonate) 800 Mg Tablet 3 Tab PO TIDWMEALS Ferrous Sulfate 325 Mg Tablet 1 Tab PO DAILY Lasix (Furosemide) 80 Mg Tablet 1 Tab PO BID Vitals/I & O Vital Sign - Last 24 Hours 12/06/16 12/06/16 12/06/16 12/06/16 11:00 15:00 19:00 20:00 Temp 97.5 97.5 98.2 97.5 97.5 98.2 Pulse 83 86 91 Resp 20 20 20 B/P (MAP) 138/83 (101) 132/72 (92) 149/105 (120) Pulse Ox 92 94 96 O2 Delivery Room Air Room Air Room Air Room Air 12/06/16 12/06/16 12/07/16 12/07/16 21:17 23:00 03:11 07:30 Temp 98.8 97.9 97.7 98.8 97.9 97.7 Pulse 91 87 54 93 Resp 20 20 18 B/P (MAP) 149/105 139/85 (103) 146/92 (110) 153/87 (109) Pulse Ox 91 92 93 O2 Delivery Room Air Room Air Room Air 12/07/16 08:00 O2 Delivery Room Air O2 Flow Rate 92.0 CHIKA GOMEZ MD Dec 07, 2016 10:30
[2016-12-07] MEDS ORDERED: BUPIVAC MPF-EPI 0.5%-1:200000 10 ML VIAL. ONE (10:50)
[2016-12-07] MEDS ORDERED: NEOMY/BACITR/POLYMYXIN OINT PACKET. TP ONE (10:50)
--- NOTE | 2016-12-07 11:14 | PDOC2 ---
ROWENA UP Gerry FRUIT VENDOR 12/07/16 1114: CONSULT Date of Consult Date of Consult DATE: 12/07/16 TIME: 11:11 Reason for Consult Reason for Consult: slow drain of PD cath Referring Physician Referring Physician: Dr Du Identification/Chief Complaint Chief Complaint slow drain PD cath Problems: Source Source: Chart review, Patient History of Present Illness Reason for Visit: Malfunctioning PD cath. IR manipulated, draining improved, however still slow. Denies n/v, constipation Past Medical History Cardiovascular: HTN, Hyperlipidemia CENTRAL NERVOUS SYSTEM: Other Heme/Onc: Anemia NOS Hepatobiliary: No pertinent hx Psych: No pertinent hx Rheumatologic: Other Infectious disease: No pertinent hx Renal/: Chronic renal failure Endocrine: Hyperparathyroidism Past Surgical History Past Surgical History: Other (PD cath) Family History Family History: No Significant Social History No ALCOHOL: none Drugs: None Current Medications Current Medications Current Medications Ondansetron HCl (Zofran) 4 mg PRN Q6HRS PRN IV NAUSEA/VOMITING; Start at 16:15 Prochlorperazine Edisylate (Compazine) 10 mg PRN Q6HRS PRN IV NAUSEA/VOMITING; Start 12/05/16 at 16:15 Prochlorperazine (Compazine) 25 mg PRN Q12HR PRN [place] NAUSEA/VOMITING; Start at 16:15 Al Hydroxide/Mg Hydroxide (Mylanta Plus Xs) 30 ml PRN Q3HRS PRN PO HEARTBURN / GAS; Start 12/05/16 at 16:15; Stop 12/06/16 at 09:34; Status DC Calcium Carbonate/ Glycine (Tums) 500 mg PRN Q3HRS PRN PO UPSET STOMACH; Start 12/05/16 at 16:15; Stop 12/06/16 at 09:34; Status DC Zolpidem Tartrate (Ambien) 5 mg PRN QHS PRN PO INSOMNIA, MAY REPEAT IN 1HR Last administered on 12/06/16t 21:22; Start 12/05/16 at 16:15 Oxycodone HCl (Roxicodone) 5 mg PRN Q3HRS PRN PO BREAKTHROUGH PAIN; Start at 16:15 Morphine Sulfate 1 mg PRN Q1HR PRN IV PAIN; Start 12/05/16 at 16:15; Stop at 09:39; Status DC Acetaminophen (Tylenol) 650 mg PRN Q6HRS PRN PO Headaches, Temp > 101.5F; Start 12/05/16 at 16:15 Docusate Sodium (Colace) 100 mg BID PO Last administered on 12/06/16 21:17; Start 12/05/16 at 21:00 Magnesium Hydroxide (Milk Of Magnesia) 2,400 mg PRN Q12HR PRN PO CONSTIPATION; Start 12/05/16 at 16:15 Bisacodyl (Dulcolax Supp) 10 mg PRN DAILY PRN TX CONSTIPATION; Start 12/05/16 at 16:15 Amlodipine Besylate (Norvasc) 5 mg DAILY PO Last administered on 12/06/16 08: 11; Start 12/06/16 at 09:00 Atorvastatin Calcium (Lipitor) 10 mg QHS PO Last administered on 12/06/16 21: 17; Start 12/05/16 at 21:00 Calcitriol (Rocaltrol) 0.5 mcg DAILY PO Last administered on 12/06/16 10:52; Start 12/06/16 at 09:00 Cinacalcet (Sensipar) 30 mg DAILY PO ; Start 12/06/16 at 09:00; Stop 12/06/16 at 09:34; Status DC Ergocalciferol (Vitamin D2) 50,000 unit WEEKLY PO ; Start 12/12/16 at 09:00 Ferrous Sulfate (Feosol) 325 mg DAILY PO Last administered on 12/06/16 10:51 ; Start 12/06/16 at 09:00 Vitamin B Complex/ Vitamin C (Daniela-Wagner) 1 tab DAILY PO Last administered on 10:51; Start 12/06/16 at 09:00 Furosemide (Lasix) 80 mg BID92 PO Last administered on 12/06/16 14:30; Start 12/06/16 at 09:00; Stop 12/07/16 at 09:38; Status DC Metoprolol Tartrate (Lopressor) 50 mg BID PO Last administered on 12/06/16 21 :17; Start 12/05/16 at 21:00 Sevelamer Carbonate (Renvela) 2,400 mg TIDWMEALS PO Last administered on 10/16/ 17at 17:18; Start 12/05/16 at 17:00 Loperamide HCl (Imodium) 2 mg PRN Q15MIN PRN PO DIARRHEA; Start 12/05/16 at 17 :15 Prochlorperazine Maleate (Compazine) 5 mg PRN Q6HRS PRN PO NAUSEA/VOMITING; Start 12/05/16 at 17:15 Iohexol (Omnipaque 300 Mg/ml) 50 ml STK-MED ONCE .ROUTE ; Start 12/06/16 at 08: 29; Stop 12/06/16 at 08:30; Status DC Iohexol (Omnipaque 300 Mg/ml) 50 ml 1X ONCE IART Last administered on 08:45; Start 12/06/16 at 08:45; Stop 12/06/16 at 08:46; Status DC Info (Do NOT chart on this entry -- for MONITORING) 1 each PRN DAILY PRN MC SEE COMMENTS; Start 12/06/16 at 08:45; Stop 12/08/16 at 08:44 Magnesium Sulfate/ Dextrose 50 ml @ 25 mls/hr PRN DAILY PRN IV for Mag < 1.7 on am labs; Start 12/06/16 at 09:15 Calcium Carbonate/ Glycine (Tums) 1,000 mg TIDAC PO Last administered on 17:18; Start 12/06/16 at 09:45 Darbepoetin [place] (Aranesp) 60 mcg WEEKLYHS SQ Last administered on 12/06/16 21:22; Start 12/06/16 at 21:00 Magnesium Sulfate/ Dextrose 50 ml @ 25 mls/hr PRN DAILY PRN IV for Mag < 1.7 on am labs Last administered on 12/07/16 10:33; Start 12/07/16 at 09:15 Polyethylene Glycol (miraLAX PACKET) 17 gm DAILY PO ; Start 12/07/16 at 10:00 Furosemide (Lasix) 80 mg TID IVP ; Start 12/07/16 at 14:00; Stop 12/07/16 at 14:00; Status DC Furosemide (Lasix) 80 mg TID IVP ; Start 12/07/16 at 14:00 Cefazolin Sodium/ Dextrose 50 ml @ 100 mls/hr 1X ONCE IV ; Start 12/07/16 at 11:30; Stop 12/07/16 at 11:59 Active Scripts Active Flagyl (Metronidazole) 500 Mg Tablet 500 Mg PO Q8HRS Nephro-Wagner Tablet (Folic Acid/Vitamin B Comp W-C) 0.8 Mg Tablet 1 Tab PO DAILY Atorvastatin Calcium 10 Mg Tablet 10 Mg PO QHS Vitamin D2 (Ergocalciferol (Vitamin D2)) 50,000 Unit Capsule 50,000 Unit PO WEEKLY Calcitriol 0.25 Mcg Capsule 0.5 Mcg PO DAILY Reported Metoprolol Tartrate 50 Mg Tablet 1 Tab PO BID Amlodipine Besylate 5 Mg Tablet 5 Mg PO DAILY Sensipar (Cinacalcet Hcl) 30 Mg Tablet 1 Tab PO DAILY Aspirin 81 Mg Tab.chew 1 Tab PO DAILY Renvela (Sevelamer Carbonate) 800 Mg Tablet 3 Tab PO TIDWMEALS Ferrous Sulfate 325 Mg Tablet 1 Tab PO DAILY Lasix (Furosemide) 80 Mg Tablet 1 Tab PO BID Allergies Allergies: Coded Allergies: No Known Medication Allergies (Verified Allergy, Unknown, 12/07/16) tramadol (Verified Adverse Reaction, Intermediate, dizziness, 12/07/16) ROS General: No: Chills, Other (fevers) PSYCHOLOGICAL ROS: No: Anxiety, Depression Eyes: No Blurry vision, No Double vision HEENT: No: Heacaches, Sore Throat Hematological and Lymphatic: No: Bleeding Problems, Blood Clots Respiratory: YES: Shortness of breath, No: Cough Cardiovascular: No Chest Pain, No Palpitations Gastrointestinal: Yes Other (see hpi) Genitourinary: No Dysuria, No Hematuria Musculoskeletal: No Joint Pain, No Muscle Pain Neurological: No Impaired Coord/balance, No Numbness/Tingling Skin: Yes Rash, No Pruritus Physical Exam General: Alert, Oriented X3, Cooperative, No acute distress HEENT: Atraumatic, PERRLA Lungs: Clear to auscultation, Normal air movement Heart: Regular rate, Normal S1, Normal S2 Abdomen: Soft, No tenderness, Other (PD cath in place) Extremities: No clubbing, No cyanosis Skin: No rashes, No breakdown Neuro: Normal speech, Sensation intact Psych/Mental Status: Mental status NL, Mood NL MUSCULOSKELETAL: No deformity, No swelling Vitals VITALS Vital Signs Date Time Temp Pulse Resp B/P (MAP) Pulse Ox O2 Delivery O2 Flow Rate FiO2 12/07/16 10:30 97.9 90 18 138/102 (114) 94 Nasal Cannula 2.0 97.9 Labs Labs Laboratory Tests Test 12/05/16 14:25 12/06/16 09:50 12/06/16 14:30 12/07/16 09:35 White Blood Count 11.9 x10^3/uL (4.0-11.0) Red Blood Count 2.70 x10^6/uL (3.50-5.40) Hemoglobin 8.7 g/dL (12.0-15.5) 8.2 g/dL (12.0-15.5) Hematocrit 26.1 % (36.0-47.0) Mean Corpuscular Volume 97 fL (79-100) Mean Corpuscular Hemoglobin 32 pg (25-35) Mean Corpuscular Hemoglobin Concent 33 g/dL (31-37) Red Cell Distribution Width 15.1 % (11.5-14.5) Platelet Count 314 x10^3/uL (140-400) Neutrophils (%) (Auto) 79 % (31-73) Lymphocytes (%) (Auto) 9 % (24-48) Monocytes (%) (Auto) 9 % (0-9) Eosinophils (%) (Auto) 2 % (0-3) Basophils (%) (Auto) 1 % (0-3) Neutrophils # (Auto) 9.5 x10^3uL (1.8-7.7) Lymphocytes # (Auto) 1.1 x10^3/uL (1.0-4.8) Monocytes # (Auto) 1.1 x10^3/uL (0.0-1.1) Eosinophils # (Auto) 0.2 x10^3/uL (0.0-0.7) Basophils # (Auto) 0.1 x10^3/uL (0.0-0.2) Sodium Level 143 mmol/L (136-145) 143 mmol/L (136-145) Potassium Level 4.0 mmol/L (3.5-5.1) 4.5 mmol/L (3.5-5.1) Chloride Level 102 mmol/L (98-107) 104 mmol/L (98-107) Carbon Dioxide Level 23 mmol/L (21-32) 23 mmol/L (21-32) Anion Gap 18 (6-14) 16 (6-14) Blood Urea Nitrogen 53 mg/dL (7-20) 59 mg/dL (7-20) Creatinine 10.4 mg/dL (0.6-1.0) 10.9 mg/dL (0.6-1.0) Estimated GFR (Cockcroft-Gault) 3.7 3.5 BUN/Creatinine Ratio 5 (6-20) Glucose Level 86 mg/dL (70-99) 91 mg/dL (70-99) Calcium Level 7.2 mg/dL (8.5-10.1) 7.2 mg/dL (8.5-10.1) Total Bilirubin 0.3 mg/dL (0.2-1.0) Aspartate Amino Transf (AST/SGOT) 23 U/L (15-37) Alanine Aminotransferase (ALT/SGPT) 39 U/L (14-59) Alkaline Phosphatase 113 U/L (46-116) Total Protein 7.5 g/dL (6.4-8.2) Albumin 3.1 g/dL (3.4-5.0) 2.8 g/dL (3.4-5.0) Albumin/Globulin Ratio 0.7 (1.0-1.7) Lipase 433 U/L (73-393) 556 U/L (73-393) Body Fluid Source Peritoneal Body Fluid Color Yellow Body Fluid Clarity Clear Body Fluid Nucleated Cells 40 /cmm Body Fluid Mononuclear WBCs (%) 74 % Body Fluid Polymorphonuclear Cells 26 % Body Fluid Total RBCs Counted 24 /cmm Body Fluid Other Cells (%) 0 % Phosphorus Level 7.4 mg/dL (2.6-4.7) Magnesium Level 1.4 mg/dL (1.8-2.4) Laboratory Tests Test 12/06/16 14:30 12/07/16 09:35 Body Fluid Source Peritoneal Body Fluid Color Yellow Body Fluid Clarity Clear Body Fluid Nucleated Cells 40 /cmm Body Fluid Mononuclear WBCs (%) 74 % Body Fluid Polymorphonuclear Cells 26 % Body Fluid Total RBCs Counted 24 /cmm Body Fluid Other Cells (%) 0 % Hemoglobin 8.2 g/dL (12.0-15.5) Sodium Level 143 mmol/L (136-145) Potassium Level 4.5 mmol/L (3.5-5.1) Chloride Level 104 mmol/L (98-107) Carbon Dioxide Level 23 mmol/L (21-32) Anion Gap 16 (6-14) Blood Urea Nitrogen 59 mg/dL (7-20) Creatinine 10.9 mg/dL (0.6-1.0) Estimated GFR (Cockcroft-Gault) 3.5 Glucose Level 91 mg/dL (70-99) Calcium Level 7.2 mg/dL (8.5-10.1) Phosphorus Level 7.4 mg/dL (2.6-4.7) Magnesium Level 1.4 mg/dL (1.8-2.4) Albumin 2.8 g/dL (3.4-5.0) Lipase 556 U/L (73-393) Assessment/Plan Assessment/Plan slow draining PC cath will review with Dr Desir--may need repositioning vs replacement LINDA DESIR MD 12/07/16 1353: CONSULT Allergies Allergies: Coded Allergies: No Known Medication Allergies (Verified Allergy, Unknown, 12/07/16) tramadol (Verified Adverse Reaction, Intermediate, dizziness, 12/07/16) Assessment/Plan Assessment/Plan pt seen, interviewed and examined to OR for repositioning of the PD catheter risks including, but not limited to bleeding, infection, injury to bowel, bladder or pelvic organs need further surgery were explained. she understands and will proceed Thanks for consult! ROWENA UP APRN Dec 07, 2016 11:14 LINDA DESIR MD Dec 07, 2016 13:53
[2016-12-07] MEDS ORDERED: HEPARIN SODIUM 5,000 UNIT in IV NORMAL SALINE 500ML BAG 500 ML IRR ONE (12:30)
[2016-12-07] MEDS ORDERED: VECURONIUM BOLUS 10 MG VIAL. IV ONE (12:37)
[2016-12-07] MEDS ORDERED: DEXAMETHASONE SOD PHOS 20 MG/5 ML VIAL. ONE (13:18)
[2016-12-07] MEDS ORDERED: fentaNYL PF VIAL 100 MCG/2 ML VIAL ONE (13:18)
[2016-12-07] MEDS ORDERED: ONDANSETRON PF 4 MG/2 ML VIAL. ONE (13:18)
[2016-12-07] MEDS ORDERED: LIDOCAINE 2% PF Vial for OR 5 ML VIAL. ONE (13:18)
[2016-12-07] MEDS ORDERED: PROPOFOL 20 ML IV ONE (13:18)
[2016-12-07] MEDS ORDERED: SEVOFLURANE 61 TO 120 MINUTES. IH ONE (13:19)
[2016-12-07] MEDS ORDERED: GLYCOPYRROLATE 1 MG/5 ML VIAL. ONE ×2 (13:19→14:30)
[2016-12-07] MEDS ORDERED: NEOSTIGMINE 10 MG/10 ML VIAL. ONE ×2 (13:19→14:30)
--- NOTE | 2016-12-07 13:50 | PDOC ---
BRIEF OPERATIVE NOTE Date: Dec 07, 2016 Pre-Op Diagnosis ESRD with malfunctioning PD catheter Post-Op Diagnosis same, abdominal adhesions Procedure Performed l/s repositioning of PD catheter, ALEXIA Surgeon Thang Anesthesia Type: General Blood Loss 10cc IV Fluid 500cc Specimens Obtained none Findings omental and small bowel serosal plugs in the pigtail openings Complications none OPerative Note WK # [id number] LINDA AQUINO MD Dec 07, 2016 13:50
[2016-12-07] MEDS ORDERED: SUCCINYLCHOLINE 200 MG/10 ML VIAL. ONE (13:57)
[2016-12-07] MEDS ORDERED: FUROSEMIDE 100 MG/10 ML VIAL. IVP SCH (14:00)
[2016-12-07] MEDS: FUROSEMIDE 40 MG/4 ML VIAL. IVP SCH ×2 (14:00→20:36)
[2016-12-07] MEDS ORDERED: ALBUTEROL SULFATE 2.5 MG/3 ML NEBU. NEB ONE (14:15)
[2016-12-07] MEDS ORDERED: NEOSTIGMINE 10 MG/10 ML VIAL. IV ONE (14:30)
[2016-12-07] MEDS ORDERED: GLYCOPYRROLATE 1 MG/5 ML VIAL. IV ONE (14:32)
[2016-12-07] MEDS ORDERED: PROCHLORPERAZINE 10 MG/2 ML VIAL. IV ONE (14:45)
--- NOTE | 2016-12-07 15:04 | OP ---
DATE OF SURGERY: 12/07/2016 PREOPERATIVE DIAGNOSIS: End-stage renal disease with malfunctioning peritoneal dialysis catheter. POSTOPERATIVE DIAGNOSIS: End-stage renal disease with malfunctioning peritoneal dialysis catheter. PROCEDURE: Laparoscopic reposition of peritoneal dialysis catheter and lysis of adhesions. SURGEON: Linda Aquino MD ANESTHESIA: General endotracheal. ESTIMATED BLOOD LOSS: 10. INTRAVENOUS FLUID: 500. INDICATIONS: The patient is a 66-year-old who has had a peritoneal dialysis catheter, which was functioning well since placement in August 2015. Recently, it has not drained well and she is brought for laparoscopic investigation. OPERATIVE FINDINGS: The openings in the pigtail were plugged with omentum and one area of small bowel serosa. There were some omental adhesions at the insertion site of the catheter and in the upper abdomen. DESCRIPTION OF PROCEDURE: The patient brought to the operating suite, given a general endotracheal anesthetic. Cadena catheter placed to dependent drainage and the abdomen prepped and draped in usual sterile fashion along with the peritoneal dialysis catheter. An epigastric incision was infiltrated with local anesthetic, sharply incised and a 5 mm Visiport used to gain access into the abdominal cavity, taking care to avoid injury to abdominal contents. Pneumoperitoneum established. Camera was inserted and we were able to see the pigtail of the catheter in the right lower quadrant and that it was intimately adherent to some omentum as well as the serosa of the small bowel. A right lower and left lower quadrant ports were placed for manipulation of the catheter. A Harmonic scalpel was used to carefully divide the omentum, which should become attached to the catheter. With gentle blunt dissection, we cut the serosal plug out of the pigtail opening without creating any damage to the small bowel itself. The end of the catheter was then delivered up on to the abdomen through the right lower quadrant port site to allow removal of the remaining clot and omental plugs in the catheter. Once it was freed, it was returned to the abdomen and positioned in the true pelvis. Ports were removed after decompression of the abdomen. The catheter was then flushed with 500 mL of normal saline, which readily accepted and drained a similar amount. The catheter was "packed" with heparinized saline. Incisions closed with 3-0 Vicryl in the subcutaneous tissue and 5-0 nylon in the skin. Sterile dressing applied. Cadena catheter removed. The patient awakened from her anesthetic; however, she was weak and required a "wake-up ventilator" in the recovery room. She is currently stable. LINDA AQUINO MD DR: REMINGTON/marixa JOB#: [id number] / [id number]
--- NOTE | 2016-12-07 15:50 | PDOC ---
Provider Note Provider Note Vee is extubated but needing BIPAP to maintain adequate oxygenation will Tx to ICU and consult pulmonary LINDA AQUINO MD Dec 07, 2016 15:50
--- NOTE | 2016-12-07 16:01 | RAD ---
Indication postop. Difficulty breathing. A single view of the chest was obtained. Comparison is made to a study 08/07/2015. There is pneumoperitoneum which is probably secondary to operative intervention. Clinical correlation advised. (The air may be secondary to a peritoneal dialysis catheter). Postoperative changes are noted. There are bilateral infiltrates compatible with pulmonary edema. There is, additionally, volume loss in the left lower lobe which may reflect atelectasis and pleural fluid. Underlying pneumonia is not excluded. There is no pneumothorax. IMPRESSION: Pneumoperitoneum. Bilateral infiltrates suggesting congestive heart failure. Volume loss in the left lower lobe may reflect atelectasis and pleural fluid. Underlying pneumonia is not excluded
[2016-12-07] MEDS: ACETAMINOPHEN 325 MG TABLET. PO PRN (19:29)
[2016-12-07] MEDS: ZOLPIDEM 5 MG TABLET. PO PRN (20:35)
[2016-12-07] MEDS: ATORVASTATIN CALCIUM 10 MG TABLET. PO SCH (20:35)
[2016-12-08] VITALS (23 sets, daily range): BP systolic 117–166; BP diastolic 1–97
[2016-12-08 06:13] LABS: ALBUMIN 2.6 g/dL (3.4-5.0); CALCIUM 7.8 mg/dL (8.5-10.1); CREATININE 10.9 mg/dL (0.6-1.0); GFR 3.5; POTASSIUM 5.4 mmol/L (3.5-5.1)
[2016-12-08] MEDS: CALCIUM CARBONATE 500 MG TAB.CHEW PO SCH ×3 (07:30→20:41)
[2016-12-08] MEDS: SEVELAMER CARBONATE 800 MG TABLET. PO SCH ×3 (08:00→20:40)
--- NOTE | 2016-12-08 08:21 | PDOC ---
PULMONARY PROGRESS NOTES Vitals Vital Signs Date Time Temp Pulse Resp B/P (MAP) Pulse Ox O2 Delivery O2 Flow Rate FiO2 12/08/16 06:00 70 17 149/82 (104) 91 Nasal Cannula 4.0 12/08/16 04:00 97.8 97.8 General: Alert, Oriented X4, No acute distress Lungs: Clear Cardiovascular: S1, S2 Abdomen: Soft, Non-tender Extremities: No Edema Labs Laboratory Tests Test 12/06/16 09:50 12/06/16 14:30 12/07/16 09:35 12/08/16 05:07 Lipase 433 U/L (73-393) 556 U/L (73-393) Body Fluid Source Peritoneal Body Fluid Color Yellow Body Fluid Clarity Clear Body Fluid Nucleated Cells 40 /cmm Body Fluid Mononuclear WBCs (%) 74 % Body Fluid Polymorphonuclear Cells 26 % Body Fluid Total RBCs Counted 24 /cmm Body Fluid Other Cells (%) 0 % Miscellaneous Test Comment (.) Hemoglobin 8.2 g/dL (12.0-15.5) 7.8 g/dL (12.0-15.5) Sodium Level 143 mmol/L (136-145) 140 mmol/L (136-145) Potassium Level 4.5 mmol/L (3.5-5.1) 5.4 mmol/L (3.5-5.1) Chloride Level 104 mmol/L (98-107) 103 mmol/L (98-107) Carbon Dioxide Level 23 mmol/L (21-32) 22 mmol/L (21-32) Anion Gap 16 (6-14) 15 (6-14) Blood Urea Nitrogen 59 mg/dL (7-20) 62 mg/dL (7-20) Creatinine 10.9 mg/dL (0.6-1.0) 10.9 mg/dL (0.6-1.0) Estimated GFR (Cockcroft-Gault) 3.5 3.5 Glucose Level 91 mg/dL (70-99) 82 mg/dL (70-99) Calcium Level 7.2 mg/dL (8.5-10.1) 7.8 mg/dL (8.5-10.1) Phosphorus Level 7.4 mg/dL (2.6-4.7) 9.0 mg/dL (2.6-4.7) Magnesium Level 1.4 mg/dL (1.8-2.4) 2.2 mg/dL (1.8-2.4) Albumin 2.8 g/dL (3.4-5.0) 2.6 g/dL (3.4-5.0) Laboratory Tests Test 12/07/16 09:35 12/08/16 05:07 Hemoglobin 8.2 g/dL (12.0-15.5) 7.8 g/dL (12.0-15.5) Sodium Level 143 mmol/L (136-145) 140 mmol/L (136-145) Potassium Level 4.5 mmol/L (3.5-5.1) 5.4 mmol/L (3.5-5.1) Chloride Level 104 mmol/L (98-107) 103 mmol/L (98-107) Carbon Dioxide Level 23 mmol/L (21-32) 22 mmol/L (21-32) Anion Gap 16 (6-14) 15 (6-14) Blood Urea Nitrogen 59 mg/dL (7-20) 62 mg/dL (7-20) Creatinine 10.9 mg/dL (0.6-1.0) 10.9 mg/dL (0.6-1.0) Estimated GFR (Cockcroft-Gault) 3.5 3.5 Glucose Level 91 mg/dL (70-99) 82 mg/dL (70-99) Calcium Level 7.2 mg/dL (8.5-10.1) 7.8 mg/dL (8.5-10.1) Phosphorus Level 7.4 mg/dL (2.6-4.7) 9.0 mg/dL (2.6-4.7) Magnesium Level 1.4 mg/dL (1.8-2.4) 2.2 mg/dL (1.8-2.4) Albumin 2.8 g/dL (3.4-5.0) 2.6 g/dL (3.4-5.0) Lipase 556 U/L (73-393) Medications Active Scripts Medications Dose Route/Sig Max Daily Dose Days Date Category Flagyl (Metronidazole) 500 Mg Tablet 500 Mg PO Q8HRS 08/02/16 Rx Metoprolol Tartrate 50 Mg Tablet 1 Tab PO BID 6/11/17 Reported Amlodipine Besylate 5 Mg Tablet 5 Mg PO DAILY 08/01/16 Reported Sensipar (Cinacalcet Hcl) 30 Mg Tablet 1 Tab PO DAILY 08/01/16 Reported Aspirin 81 Mg Tab.chew 1 Tab PO DAILY 08/01/16 Reported Renvela (Sevelamer Carbonate) 800 Mg Tablet 3 Tab PO TIDWMEALS 08/01/16 Reported Ferrous Sulfate 325 Mg Tablet 1 Tab PO DAILY 08/01/16 Reported Lasix (Furosemide) 80 Mg Tablet 1 Tab PO BID 08/05/15 Reported Nephro-Wagner Tablet (Folic Acid/Vitamin B Comp W-C) 0.8 Mg Tablet 1 Tab PO DAILY 07/04/15 Rx Atorvastatin Calcium 10 Mg Tablet 10 Mg PO QHS 07/04/15 Rx Vitamin D2 (Ergocalciferol (Vitamin D2)) 50,000 Unit Capsule 50,000 Unit PO WEEKLY 06/13/15 Rx Calcitriol 0.25 Mcg Capsule 0.5 Mcg PO DAILY 06/13/15 Rx Impression . NOTE DICTATED ACUTE RESP FAILURE EXPECTED POST PERITONEAL DIALYSIS CATH REAPPOSITION ABNORMAL CXR COMPATIBLE WITH EDEMA D/W ISABEL MENDOSA MD Dec 08, 2016 08:21
--- NOTE | 2016-12-08 08:55 | PDOC ---
SUBJECTIVE ROS ESRD pt had repositioning of PD catheter, due to omental and small bowel serosal plugs in the pigtail openings. She remained somewhat hypoxic after extubation and was sent to ICU on bipap. Now on NCO2 alone. CVS: some Orthopnea, no CP RESP: + SOB, ? CABALLERO (not ambulated yet) GI: no Nausea, no Vomiting : no Dysuria, no Urgency OBJECTIVE Vital Signs Vital Signs Date Time Temp Pulse Resp B/P (MAP) Pulse Ox O2 Delivery O2 Flow Rate FiO2 12/08/16 08:05 Nasal Cannula 3.0 12/08/16 08:00 97.8 76 18 166/94 (118) 96 97.8 I & 0 Intake and Output 12/09/16 06:59 Output Total 100 ml Balance -100 ml Output Urine Total 100 ml PHYSICAL EXAM Physical Exam General Appearance: Awake Alert Oriented x 3 In no resp Distress Eyes: VIsion Unchanged Conjunctiva Normal EN: No EN Drainage Mucous Memb. moist Neck: no JVD min JVP Supple no Thyromegaly CVS: S1 S2 soft Murmur No Gallop No Rub no Edema Resp: rare basal Rales no Rhonchi no Acc. Muscle use GI: BS +ve NO Bruit Non Tender + Distended : no CVA tenderness; no Suprapubic Tenderness Assessment & Plan ESRD: Dialysis as below F 180 NR 3.0 Hrs 2 K 2.5 Ca 140 Na 40 HC03 Qb 350 + Qd 500+ Heparin 0 Units Uf 3 Kgs May give 25-50 gms of 25% Albumin if needed to maintain Hemodynamic stability Treatment plan reviewed and discussed with photographic reproduction technician ^ed k - HD later today Anemia: Epogen as ordered; would like to hold off of Bl. Transfusion due to potential Txp Candidacy. HTN: Current BP meds reviewed. See orders for changes. reval after Fluid status optimization fl. Overload - UF with HD today since she is more agreeable poorly flowing PD Cath - appreciate Dr Desir's help with same - she is now s/p repositioning of PD catheter, due to omental and small bowel serosal plugs in the pigtail openings. NV - ? Asso with ^ed Lipase vs due to constipation - defer to GI to eval and manage HypoAlbuminemia - suspect related to PD - anticipate some improvement once on short term HD HypoCalcemia - checking Mag, noted ^ed Lipase; holding Sensipar Subj SOB - due to fl overload - she initially declined HD Cath placement but is now willing to proceed with same Significant ^ PHos - Binders restarted - watch trend Discussed Plan of Care and prognosis etc. at length with pt and OP PD RN COMMENT/RELEVANT DATA Meds Current Medications Medications (Trade) Dose Ordered Sig/Marcus Start Time Stop Time Status Last Admin Dose Admin Acetaminophen (Tylenol) 650 mg PRN Q6HRS PRN 12/05/16 16:15 12/07/16 19:29 650 MG Al Hydroxide/Mg Hydroxide (Mylanta Plus Xs) 30 ml PRN Q3HRS PRN 12/05/16 16:15 12/06/16 09:34 DC Albuterol Sulfate (Ventolin Neb Soln) 2.5 mg 1X ONCE 12/07/16 14:15 12/07/16 14:16 DC 12/07/16 14:14 2.5 MG Amlodipine Besylate (Norvasc) 5 mg DAILY 12/06/16 09:00 12/06/16 08:11 5 MG Atorvastatin Calcium (Lipitor) 10 mg QHS 12/05/16 21:00 12/07/16 20:35 10 MG Bisacodyl (Dulcolax Supp) 10 mg PRN DAILY PRN 12/05/16 16:15 Bupivacaine HCl/ Epinephrine Bitart (Sensorcain-Mpf Epi 0.5%-[id number]) 10 ml STK-MED ONCE 12/07/16 10:50 12/07/16 11:50 DC 12/07/16 12:43 5 ML Calcitriol (Rocaltrol) 0.5 mcg DAILY 12/06/16 09:00 12/06/16 10:52 0.5 MCG Calcium Carbonate/ Glycine (Tums) 1,000 mg TIDAC 12/06/16 09:45 12/07/16 17:52 1,000 MG Cefazolin Sodium/ Dextrose 50 ml @ 100 mls/hr 1X ONCE 12/07/16 11:30 12/07/16 11:59 DC 12/07/16 12:27 100 MLS/HR Cinacalcet (Sensipar) 30 mg DAILY 12/06/16 09:00 12/06/16 09:34 DC Darbepoetin [place] (Aranesp) 60 mcg WEEKLYHS 12/06/16 21:00 12/06/16 21:22 60 MCG Dexamethasone Sodium Phosphate (Decadron) 20 mg STK-MED ONCE 12/07/16 13:18 12/07/16 13:19 DC Docusate Sodium (Colace) 100 mg BID 12/05/16 21:00 12/07/16 20:35 100 MG Ergocalciferol (Vitamin D2) 50,000 unit WEEKLY 12/12/16 09:00 Fentanyl Citrate (Fentanyl 2ml Vial) 100 mcg STK-MED ONCE 12/07/16 13:18 12/07/16 13:19 DC Ferrous Sulfate (Feosol) 325 mg DAILY 12/06/16 09:00 12/06/16 10:51 325 MG Furosemide (Lasix) 80 mg TID 12/07/16 14:00 12/07/16 20:36 80 MG Glycopyrrolate (Robinul) 0.2 mg 1X ONCE 12/07/16 14:32 12/07/16 14:40 DC 12/07/16 14:32 0.2 MG Heparin Sodium (Porcine) 5000 unit/Sodium Chloride 505 ml @ 505 mls/hr 1X PERIOP ONCE 12/07/16 12:30 12/07/16 13:29 DC 12/07/16 12:43 Info (Do NOT chart on this entry -- for MONITORING) 1 each PRN DAILY PRN 12/06/16 08:45 12/08/16 08:44 DC Iohexol (Omnipaque 300 Mg/ml) 50 ml 1X ONCE 12/06/16 08:45 12/06/16 08:46 DC 12/06/16 08:45 20 ML Lidocaine HCl (Lidocaine Pf 2% Vial) 5 ml STK-MED ONCE 12/07/16 13:18 12/07/16 13:19 DC Loperamide HCl (Imodium) 2 mg PRN Q15MIN PRN 12/05/16 17:15 Magnesium Hydroxide (Milk Of Magnesia) 2,400 mg PRN Q12HR PRN 12/05/16 16:15 Magnesium Sulfate/ Dextrose 50 ml @ 25 mls/hr PRN DAILY PRN 12/07/16 09:15 12/07/16 10:33 25 MLS/HR Metoprolol Tartrate (Lopressor) 50 mg BID 12/05/16 21:00 12/07/16 20:36 50 MG Morphine Sulfate 1 mg PRN Q1HR PRN 12/05/16 16:15 12/07/16 09:39 DC Neomycin/ Polymyxin/ Bacitracin (Triple Antibiotic Ointment) 1 pkt STK-MED ONCE 12/07/16 10:50 12/07/16 11:50 DC 12/07/16 13:19 1 PKT Neostigmine Methylsulfate (Bloxiverz) 2 mg 1X ONCE 12/07/16 14:30 12/07/16 14:39 DC 12/07/16 14:32 2 MG Ondansetron HCl (Zofran) 4 mg STK-MED ONCE 12/07/16 13:18 12/07/16 13:19 DC Oxycodone HCl (Roxicodone) 5 mg PRN Q3HRS PRN 12/05/16 16:15 Polyethylene Glycol (miraLAX PACKET) 17 gm DAILY 12/07/16 10:00 Prochlorperazine (Compazine) 25 mg PRN Q12HR PRN 12/05/16 16:15 Prochlorperazine Edisylate (Compazine) 10 mg 1X ONCE 12/07/16 14:45 12/07/16 14:46 DC 12/07/16 14:00 10 MG Prochlorperazine Maleate (Compazine) 5 mg PRN Q6HRS PRN 12/05/16 17:15 Propofol 20 ml @ As Directed STK-MED ONCE 12/07/16 13:18 12/07/16 13:19 DC Sevelamer Carbonate (Renvela) 2,400 mg TIDWMEALS 12/05/16 17:00 12/07/16 17:52 2,400 MG Sevoflurane (Ultane) 60 ml STK-MED ONCE 12/07/16 13:19 12/07/16 13:20 DC Succinylcholine Chloride (Anectine) 200 mg STK-MED ONCE 12/07/16 13:57 12/07/16 13:58 DC Vecuronium [place] (Norcuron Bolus) 10 mg STK-MED ONCE 12/07/16 12:37 12/07/16 12:38 DC Vitamin B Complex/ Vitamin C (Daniela-Wganer) 1 tab DAILY 12/06/16 09:00 12/06/16 10:51 1 TAB Zolpidem Tartrate (Ambien) 5 mg PRN QHS PRN 12/05/16 16:15 12/07/16 20:35 5 MG Lab Laboratory Tests Test 12/07/16 09:35 12/08/16 05:07 Hemoglobin 8.2 g/dL (12.0-15.5) 7.8 g/dL (12.0-15.5) Sodium Level 143 mmol/L (136-145) 140 mmol/L (136-145) Potassium Level 4.5 mmol/L (3.5-5.1) 5.4 mmol/L (3.5-5.1) Chloride Level 104 mmol/L (98-107) 103 mmol/L (98-107) Carbon Dioxide Level 23 mmol/L (21-32) 22 mmol/L (21-32) Anion Gap 16 (6-14) 15 (6-14) Blood Urea Nitrogen 59 mg/dL (7-20) 62 mg/dL (7-20) Creatinine 10.9 mg/dL (0.6-1.0) 10.9 mg/dL (0.6-1.0) Estimated GFR (Cockcroft-Gault) 3.5 3.5 Glucose Level 91 mg/dL (70-99) 82 mg/dL (70-99) Calcium Level 7.2 mg/dL (8.5-10.1) 7.8 mg/dL (8.5-10.1) Phosphorus Level 7.4 mg/dL (2.6-4.7) 9.0 mg/dL (2.6-4.7) Magnesium Level 1.4 mg/dL (1.8-2.4) 2.2 mg/dL (1.8-2.4) Albumin 2.8 g/dL (3.4-5.0) 2.6 g/dL (3.4-5.0) Lipase 556 U/L (73-393) YASMEEN CARD MD Dec 08, 2016 08:55
[2016-12-08] MEDS: FOLIC/VIT B COMP W-C (RENAL) TABLET. PO SCH ×2 (09:00→12:06)
[2016-12-08] MEDS: POLYETHYLENE GLYCOL 3350 17 GM PACKET. PO SCH (09:00)
[2016-12-08] MEDS: DOCUSATE SODIUM 100 MG CAPSULE. PO SCH ×2 (09:07→20:41)
[2016-12-08] MEDS: METOPROLOL TART IMMED RELEASE 50 MG TABLET. PO SCH ×2 (09:08→21:00)
[2016-12-08] MEDS: ACETAMINOPHEN 325 MG TABLET. PO PRN (09:09)
[2016-12-08] MEDS: amLODIPine BESYLATE 5 MG TABLET PO SCH (09:10)
[2016-12-08] MEDS: CALCITRIOL 0.25 MCG CAPSULE. PO SCH (09:11)
[2016-12-08] MEDS ORDERED: LIDOCAINE 1% / SOD BICARB 8.4% 20 ML VIAL. IJ ONE (09:33)
[2016-12-08] MEDS ORDERED: HEPARIN for IV BOLUS 10,000 UNIT/10 ML VIAL. ONE ×2 (09:34→09:48)
--- NOTE | 2016-12-08 09:48 | CONS ---
DATE OF CONSULTATION: 12/08/2016 DATE OF SERVICE: 12/08/2016 ATTENDING PHYSICIAN: Dr. Haydee Hughes. REASON FOR CONSULTATION: The patient seen in pulmonary consultation at the request of Dr. Hughes for acute respiratory failure. HISTORY OF PRESENT ILLNESS: The patient is a 66-year-old that presented with a clogged peritoneal dialysis catheter. She underwent surgical intervention. Postop, she had an expected respiratory distress. She has been missing dialysis for quite some time. She had a laparoscopic reposition in the peritoneal dialysis catheter and lysis of adhesions. Postoperatively, the patient was extubated. She had respiratory distress and a chest x-ray was obtained. I reviewed the x-ray revealing bilateral pulmonary infiltrate and effusion compatible with acute pulmonary edema. The patient was placed on BiPAP. She is currently off of BiPAP. Denies fever, chills or night sweats, prior to her presentation, she was short slightly short of breath, but did not have a productive cough, no documented fever. PAST MEDICAL HISTORY: Otherwise remarkable for chronic renal failure on peritoneal dialysis. She has had hemodialysis in the past. The renal failure is secondary to lupus. She has a history of hypertension, hyperlipidemia, hyperparathyroidism. PAST SURGICAL HISTORY: As above. ALLERGIES: No known drug allergies. SOCIAL HISTORY: She has never smoked and denies any alcohol intake. REVIEW OF SYSTEMS: As indicated above, otherwise, a 10-point system was reviewed and negative. PHYSICAL EXAMINATION: GENERAL: The patient is currently in the intensive care unit. VITAL SIGNS: Stable. O2 saturation was greater than 92%. HEENT: Eyes, the sclerae were nonicteric. NECK: Jugular venous distention was not elevated. No lymphadenopathy. CHEST: Full expansion. LUNGS: Crackles in the bases with no wheezes. CARDIOVASCULAR: Regular rate and rhythm with S1, S2, no S3. ABDOMEN: Soft, nontender, nondistended. EXTREMITIES: No clubbing, cyanosis or edema. NEUROLOGIC: The patient was awake, alert, following commands. A detailed neuro exam was not performed. IMAGING: Chest x-ray was reviewed, bilateral infiltrates suggestive of pulmonary edema. There was also volume loss in the left lower lobe with questionable effusion. LABORATORY DATA: Reviewed. White count was slightly elevated. Hemoglobin and hematocrit were noted. BUN and creatinine were elevated. Albumin upon admission was low at 3.1. IMPRESSION: 1. Expected acute respiratory failure post-hemodialysis catheter replacement and lysis of adhesions. 2. Bilateral pulmonary infiltrates compatible with pulmonary edema, doubt pneumonia. 3. Chronic renal failure, on hemodialysis. 4. Hypertension. 5. Hyperlipidemia. 6. Abnormal x-ray as indicated above. PLAN: 1. The case discussed with Dr. Du, he recommends the patient undergo hemodialysis for 1 or 2 runs. 2. No need for antibiotics. 3. Deep venous thrombosis prophylaxis. 4. Continue home meds. 5. P.r.n. nebulized treatments. 6. IV Lasix. 7. P.r.n. BiPAP. I do appreciate the privilege in sharing in this patient's care. Total cumulative critical care time of 40 minutes. ISABEL VIEIRA MD DR: SANDRA/marixa JOB#: [id number] / [id number]
[2016-12-08] MEDS ORDERED: LIDOCAINE 1%/EPI 1:100,000 20 ML VIAL. ONE (10:36)
--- NOTE | 2016-12-08 10:41 | PDOC ---
Provider Note Provider Note SURG POD 1 reposition PD cath headed to IR for HD cath no new surg recs D/W Deshawn Du and LINDA Cuadra MD Dec 08, 2016 10:41
[2016-12-08] MEDS ORDERED: MIDAZOLAM HCL/PF 2 MG/2 ML VIAL. ONE (10:47)
[2016-12-08] MEDS ORDERED: fentaNYL PF VIAL 100 MCG/2 ML VIAL ONE (10:47)
[2016-12-08] MEDS ORDERED: MIDAZOLAM HCL/PF 2 MG/2 ML VIAL. IV ONE (11:15)
[2016-12-08] MEDS ORDERED: HEPARIN for IV BOLUS 10,000 UNIT/10 ML VIAL. IV ONE (11:15)
[2016-12-08] MEDS ORDERED: LIDOCAINE 1%/EPI 1:100,000 20 ML VIAL. INJ ONE (11:15)
[2016-12-08] MEDS ORDERED: fentaNYL PF VIAL 100 MCG/2 ML VIAL IV ONE (11:15)
[2016-12-08] MEDS: FERROUS SULFATE 325 MG TABLET. PO SCH (12:07)
--- NOTE | 2016-12-08 12:20 | RAD ---
Procedure: Tunneled hemodialysis catheter placement 12/08/2016 Clinical Indication: Failed peritoneal dialysis catheter. Need for intermediate term hemodialysis Sedation: Conscious sedation was administered for 30 minutes. The patient was monitored by a qualified independent observer throughout the time of sedation. Please refer to the medical record for exact doses of medications utilized to achieve moderate sedation. Fluoroscopy time: 0.3 minutes Dose area product 1 ocasio centimeters squared Sterility: All elements of maximal sterile barrier technique including the use of a cap, mask, sterile gown, sterile gloves, large sterile sheet, appropriate hand hygiene, and 2% chlorhexidine for cutaneous antisepsis (or acceptable alternative antiseptic per current guidelines) were followed for this procedure. Consent: The procedure was explained in its entirety to the patient or the patients designated personal service representative by a member of the treatment team, including a discussion of the risks, benefits and commonly accepted alternatives to the procedure, as well as the expected consequences of no therapy whatsoever. Discussion of the risks included, but was not limited to, those that are most frequent and those that are rare but possibly severe or life-threatening, as well as the possibility of unforeseen complications. Technique and Findings: Following informed consent, the patient was prepped and draped in the usual sterile fashion. Ultrasound interrogation of the right neck revealed patency and compressibility of the right internal jugular vein. A 21-gauge micropuncture was then used to gain access to this vein under ultrasound guidance. A hard copy ultrasound image was recorded. The needle was exchanged over a wire for a 4 [place] sheath which was used to guide an Amplatz wire into the IVC. The skin over the right anterior chest wall was copiously anesthetized with 1% Lidocaine plus Epinephrine and a small dermatotomy was made. 23 cm tip cuff palindrome tunneled hemodialysis catheter was then tunneled subcutaneously towards the neck dermatotomy and deployed through a large caliber peel-away sheath under fluoroscopic guidance such that the distal tip resided in the mid right atrium. Manual flow rates were assessed and found to be excellent. The catheter was then flushed, packed with Heparin, capped, and sutured to the skin. The neck dermatotomy was closed with Dermabond. Impression: Tunneled hemodialysis catheter placement
--- NOTE | 2016-12-08 13:17 | PDOC ---
PROGRESS NOTES Chief Complaint Chief Complaint Malfunctioning PD cath, fluid overload Weakness, Fatigue and insomnia Lupus Anemia of ESRD Dyspnea History of Present Illness History of Present Illness Pt is a pleasant 66 year old female who presented with a malfunctioning PD catheter. She had surgery yesterday 12/07 to reposition the catheter and lysis of adhesions. Pt is in no acute distress. Pt is on hemodialysis with a temporary right internal jugular catheter until her wounds are healed. Possible c diff infection- pending. Labs indicated elevated creatinine, BUN, phosphorus, potassium, and wbcs. Pt is being followed by nephrology, surgery, and pulmonology. Will continue to monitor in the ICU. Vitals Vitals Vital Signs Date Time Temp Pulse Resp B/P (MAP) Pulse Ox O2 Delivery O2 Flow Rate FiO2 12/08/16 12:00 97.7 74 14 130/72 (91) 91 Nasal Cannula 2.0 97.7 Physical Exam General: Alert, Oriented X3, Cooperative, No acute distress Heart: Regular rate, Normal S1, Normal S2, No murmurs Lungs: Clear Abdomen: Normal bowel sounds, Soft, No tenderness, Other (PD cath in place) Extremities: No clubbing, No cyanosis Skin: No rashes, No breakdown Labs LABS Laboratory Tests Test 12/07/16 17:55 12/08/16 05:07 Nasal Screen MRSA (PCR) Negative (Negative) Hemoglobin 7.8 g/dL (12.0-15.5) Sodium Level 140 mmol/L (136-145) Potassium Level 5.4 mmol/L (3.5-5.1) Chloride Level 103 mmol/L (98-107) Carbon Dioxide Level 22 mmol/L (21-32) Anion Gap 15 (6-14) Blood Urea Nitrogen 62 mg/dL (7-20) Creatinine 10.9 mg/dL (0.6-1.0) Estimated GFR (Cockcroft-Gault) 3.5 Glucose Level 82 mg/dL (70-99) Calcium Level 7.8 mg/dL (8.5-10.1) Phosphorus Level 9.0 mg/dL (2.6-4.7) Magnesium Level 2.2 mg/dL (1.8-2.4) Albumin 2.6 g/dL (3.4-5.0) Review of Systems Review of Systems Pt seen at bedside resting comfortably. Pt complains of weakness, fatigue, and hunger Assessment and Plan Assessmemt and Plan Assessment: Malfunctioning PD cath, fluid overload Weakness, Fatigue and insomnia Lupus Anemia of ESRD Dyspnea Plan: Continue ICU monitoring Hemodialysis until wounds are healed Await C diff culture Continue contact precausions Wound care Appreciate subspecialist input Continue monitoring renal function Continue home meds Continue PT/OT Recheck labs Problems: Comment Review of Relevant I have reviewed the following items christos (where applicable) has been applied. Labs Laboratory Tests Test 12/06/16 14:30 12/07/16 09:35 12/07/16 17:55 12/08/16 05:07 Body Fluid Source Peritoneal Body Fluid Color Yellow Body Fluid Clarity Clear Body Fluid Nucleated Cells 40 /cmm Body Fluid Mononuclear WBCs (%) 74 % Body Fluid Polymorphonuclear Cells 26 % Body Fluid Total RBCs Counted 24 /cmm Body Fluid Other Cells (%) 0 % Miscellaneous Test Comment (.) Hemoglobin 8.2 g/dL (12.0-15.5) 7.8 g/dL (12.0-15.5) Sodium Level 143 mmol/L (136-145) 140 mmol/L (136-145) Potassium Level 4.5 mmol/L (3.5-5.1) 5.4 mmol/L (3.5-5.1) Chloride Level 104 mmol/L (98-107) 103 mmol/L (98-107) Carbon Dioxide Level 23 mmol/L (21-32) 22 mmol/L (21-32) Anion Gap 16 (6-14) 15 (6-14) Blood Urea Nitrogen 59 mg/dL (7-20) 62 mg/dL (7-20) Creatinine 10.9 mg/dL (0.6-1.0) 10.9 mg/dL (0.6-1.0) Estimated GFR (Cockcroft-Gault) 3.5 3.5 Glucose Level 91 mg/dL (70-99) 82 mg/dL (70-99) Calcium Level 7.2 mg/dL (8.5-10.1) 7.8 mg/dL (8.5-10.1) Phosphorus Level 7.4 mg/dL (2.6-4.7) 9.0 mg/dL (2.6-4.7) Magnesium Level 1.4 mg/dL (1.8-2.4) 2.2 mg/dL (1.8-2.4) Albumin 2.8 g/dL (3.4-5.0) 2.6 g/dL (3.4-5.0) Lipase 556 U/L (73-393) Nasal Screen MRSA (PCR) Negative (Negative) Laboratory Tests Test 12/07/16 17:55 12/08/16 05:07 Nasal Screen MRSA (PCR) Negative (Negative) Hemoglobin 7.8 g/dL (12.0-15.5) Sodium Level 140 mmol/L (136-145) Potassium Level 5.4 mmol/L (3.5-5.1) Chloride Level 103 mmol/L (98-107) Carbon Dioxide Level 22 mmol/L (21-32) Anion Gap 15 (6-14) Blood Urea Nitrogen 62 mg/dL (7-20) Creatinine 10.9 mg/dL (0.6-1.0) Estimated GFR (Cockcroft-Gault) 3.5 Glucose Level 82 mg/dL (70-99) Calcium Level 7.8 mg/dL (8.5-10.1) Phosphorus Level 9.0 mg/dL (2.6-4.7) Magnesium Level 2.2 mg/dL (1.8-2.4) Albumin 2.6 g/dL (3.4-5.0) Medications Current Medications Ondansetron HCl (Zofran) 4 mg PRN Q6HRS PRN IV NAUSEA/VOMITING 1ST CHOICE; Start 12/05/16 at 16:15 Prochlorperazine Edisylate (Compazine) 10 mg PRN Q6HRS PRN IV NAUSEA/VOMITING 2ND CHOICE; Start 12/05/16 at 16:15 Prochlorperazine (Compazine) 25 mg PRN Q12HR PRN PA NAUSEA/VOMITING; Start at 16:15 Al Hydroxide/Mg Hydroxide (Mylanta Plus Xs) 30 ml PRN Q3HRS PRN PO HEARTBURN / GAS; Start 12/05/16 at 16:15; Stop 12/06/16 at 09:34; Status DC Calcium Carbonate/ Glycine (Tums) 500 mg PRN Q3HRS PRN PO UPSET STOMACH; Start 12/05/16 at 16:15; Stop 12/06/16 at 09:34; Status DC Zolpidem Tartrate (Ambien) 5 mg PRN QHS PRN PO INSOMNIA, MAY REPEAT IN 1HR Last administered on 12/07/16 20:35; Start 12/05/16 at 16:15 Oxycodone HCl (Roxicodone) 5 mg PRN Q3HRS PRN PO BREAKTHROUGH PAIN; Start at 16:15 Morphine Sulfate 1 mg PRN Q1HR PRN IV PAIN; Start 12/05/16 at 16:15; Stop at 09:39; Status DC Acetaminophen (Tylenol) 650 mg PRN Q6HRS PRN PO Headaches, Temp > 101.5F Last administered on 12/08/16 09:09; Start 12/05/16 at 16:15 Docusate Sodium (Colace) 100 mg BID PO Last administered on 12/08/16 09:07; Start 12/05/16 at 21:00 Magnesium Hydroxide (Milk Of Magnesia) 2,400 mg PRN Q12HR PRN PO CONSTIPATION; Start 12/05/16 at 16:15 Bisacodyl (Dulcolax Supp) 10 mg PRN DAILY PRN PA CONSTIPATION; Start 12/05/16 at 16:15 Amlodipine Besylate (Norvasc) 5 mg DAILY PO Last administered on 12/08/16 09: 10; Start 12/06/16 at 09:00 Atorvastatin Calcium (Lipitor) 10 mg QHS PO Last administered on 12/07/16 20: 35; Start 12/05/16 at 21:00 Calcitriol (Rocaltrol) 0.5 mcg DAILY PO Last administered on 12/08/16 09:11; Start 12/06/16 at 09:00 Cinacalcet (Sensipar) 30 mg DAILY PO ; Start 12/06/16 at 09:00; Stop 12/06/16 at 09:34; Status DC Ergocalciferol (Vitamin D2) 50,000 unit WEEKLY PO ; Start 12/12/16 at 09:00 Ferrous Sulfate (Feosol) 325 mg DAILY PO Last administered on 12/08/16 12:07 ; Start 12/06/16 at 09:00 Vitamin B Complex/ Vitamin C (Daniela-Wagner) 1 tab DAILY PO Last administered on 12:06; Start 12/06/16 at 09:00 Furosemide (Lasix) 80 mg BID92 PO Last administered on 12/06/16 14:30; Start 12/06/16 at 09:00; Stop 12/07/16 at 09:38; Status DC Metoprolol Tartrate (Lopressor) 50 mg BID PO Last administered on 12/08/16 09 :08; Start 12/05/16 at 21:00 Sevelamer Carbonate (Renvela) 2,400 mg TIDWMEALS PO Last administered on 12:06; Start 12/05/16 at 17:00 Loperamide HCl (Imodium) 2 mg PRN Q15MIN PRN PO DIARRHEA; Start 12/05/16 at 17 :15 Prochlorperazine Maleate (Compazine) 5 mg PRN Q6HRS PRN PO NAUSEA/VOMITING; Start 12/05/16 at 17:15 Iohexol (Omnipaque 300 Mg/ml) 50 ml STK-MED ONCE .ROUTE ; Start 12/06/16 at 08: 29; Stop 12/06/16 at 08:30; Status DC Iohexol (Omnipaque 300 Mg/ml) 50 ml 1X ONCE IART Last administered on 08:45; Start 12/06/16 at 08:45; Stop 12/06/16 at 08:46; Status DC Info (Do NOT chart on this entry -- for MONITORING) 1 each PRN DAILY PRN MC SEE COMMENTS; Start 12/06/16 at 08:45; Stop 12/08/16 at 08:44; Status DC Magnesium Sulfate/ Dextrose 50 ml @ 25 mls/hr PRN DAILY PRN IV for Mag < 1.7 on am labs; Start 12/06/16 at 09:15; Stop 12/07/16 at 14:10; Status DC Calcium Carbonate/ Glycine (Tums) 1,000 mg TIDAC PO Last administered on 12:07; Start 12/06/16 at 09:45 Darbepoetin [place] (Aranesp) 60 mcg WEEKLYHS SQ Last administered on 12/06/16 21:22; Start 12/06/16 at 21:00 Magnesium Sulfate/ Dextrose 50 ml @ 25 mls/hr PRN DAILY PRN IV for Mag < 1.7 on am labs Last administered on 12/07/16 10:33; Start 12/07/16 at 09:15 Polyethylene Glycol (miraLAX PACKET) 17 gm DAILY PO ; Start 12/07/16 at 10:00 Furosemide (Lasix) 80 mg TID IVP ; Start 12/07/16 at 14:00; Stop 12/07/16 at 14:00; Status DC Furosemide (Lasix) 80 mg TID IVP Last administered on 12/07/16 20:36; Start 12/07/16 at 14:00; Stop 12/08/16 at 09:07; Status DC Cefazolin Sodium/ Dextrose 50 ml @ 100 mls/hr 1X ONCE IV Last administered on 12/07/16 12:27; Start 12/07/16 at 11:30; Stop 12/07/16 at 11:59; Status DC Bupivacaine HCl/ Epinephrine Bitart (Sensorcain-Mpf Epi 0.5%-[id number]) 10 ml STK -MED ONCE .ROUTE Last administered on 12/07/16 12:43; Start 12/07/16 at 10: 50; Stop 12/07/16 at 11:50; Status DC Neomycin/ Polymyxin/ Bacitracin (Triple Antibiotic Ointment) 1 pkt STK-MED ONCE TP Last administered on 12/07/16 13:19; Start 12/07/16 at 10:50; Stop 12/07 at 11:50; Status DC Heparin Sodium (Porcine) 5000 unit/Sodium Chloride 505 ml @ 505 mls/hr 1X PERIOP ONCE IRR Last administered on 12/07/16 12:43; Start 12/07/16 at 12: 30; Stop 12/07/16 at 13:29; Status DC Vecuronium [place] (Norcuron Bolus) 10 mg STK-MED ONCE IV ; Start 12/07/16 at 12:37; Stop 12/07/16 at 12:38; Status DC Propofol 20 ml @ As Directed STK-MED ONCE IV ; Start 12/07/16 at 13:18; Stop 12/07/16 at 13:19; Status DC Lidocaine HCl (Lidocaine Pf 2% Vial) 5 ml STK-MED ONCE .ROUTE ; Start 12/07/16 at 13:18; Stop 12/07/16 at 13:19; Status DC Dexamethasone Sodium Phosphate (Decadron) 20 mg STK-MED ONCE .ROUTE ; Start at 13:18; Stop 12/07/16 at 13:19; Status DC Ondansetron HCl (Zofran) 4 mg STK-MED ONCE .ROUTE ; Start 12/07/16 at 13:18; Stop 12/07/16 at 13:19; Status DC Fentanyl Citrate (Fentanyl 2ml Vial) 100 mcg STK-MED ONCE .ROUTE ; Start at 13:18; Stop 12/07/16 at 13:19; Status DC Sevoflurane (Ultane) 60 ml STK-MED ONCE IH ; Start 12/07/16 at 13:19; Stop at 13:20; Status DC Neostigmine Methylsulfate (Bloxiverz) 10 mg STK-MED ONCE .ROUTE ; Start at 13:19; Stop 12/07/16 at 13:20; Status DC Glycopyrrolate (Robinul) 1 mg STK-MED ONCE .ROUTE ; Start 12/07/16 at 13:19; Stop 12/07/16 at 13:20; Status DC Succinylcholine Chloride (Anectine) 200 mg STK-MED ONCE .ROUTE ; Start at 13:57; Stop 12/07/16 at 13:58; Status DC Albuterol Sulfate (Ventolin Neb Soln) 2.5 mg 1X ONCE NEB Last administered on 12/07/16t 14:14; Start 12/07/16 at 14:15; Stop 12/07/16 at 14:16; Status DC Glycopyrrolate (Robinul) 1 mg STK-MED ONCE .ROUTE ; Start 12/07/16 at 14:30; Stop 12/07/16 at 14:31; Status DC Neostigmine Methylsulfate (Bloxiverz) 10 mg STK-MED ONCE .ROUTE ; Start at 14:30; Stop 12/07/16 at 14:31; Status DC Prochlorperazine Edisylate (Compazine) 10 mg 1X ONCE IV Last administered on 12/07/16t 14:00; Start 12/07/16 at 14:45; Stop 12/07/16 at 14:46; Status DC Glycopyrrolate (Robinul) 0.2 mg 1X ONCE IV Last administered on 12/07/16t 14: 32; Start 12/07/16 at 14:32; Stop 12/07/16 at 14:40; Status DC Neostigmine Methylsulfate (Bloxiverz) 2 mg 1X ONCE IV Last administered on t 14:32; Start 12/07/16 at 14:30; Stop 12/07/16 at 14:39; Status DC Lidocaine/Sodium Bicarbonate (Buffered Lidocaine 1%) 20 ml STK-MED ONCE IJ ; Start 12/08/16 at 09:33; Stop 12/08/16 at 09:34; Status DC Heparin Sodium (Porcine) (Heparin Sodium) 10,000 unit STK-MED ONCE .ROUTE ; Start 12/08/16 at 09:34; Stop 12/08/16 at 09:35; Status DC Heparin Sodium/ Sodium Chloride 500 ml @ As Directed STK-MED ONCE .ROUTE ; Start 12/08/16 at 09:34; Stop 12/08/16 at 09:35; Status DC Heparin Sodium (Porcine) (Heparin Sodium) 10,000 unit STK-MED ONCE .ROUTE ; Start 12/08/16 at 09:48; Stop 12/08/16 at 09:49; Status DC Lidocaine/ Epinephrine (Xylocaine 1%-Epi 1:100,000) 20 ml STK-MED ONCE .ROUTE ; Start 12/08/16 at 10:36; Stop 12/08/16 at 10:37; Status DC Fentanyl Citrate (Fentanyl 2ml Vial) 100 mcg STK-MED ONCE .ROUTE ; Start at 10:47; Stop 12/08/16 at 10:48; Status DC Midazolam HCl (Versed) 2 mg STK-MED ONCE .ROUTE ; Start 12/08/16 at 10:47; Stop 12/08/16 at 10:48; Status DC Cefazolin Sodium 50 ml @ As Directed STK-MED ONCE IV ; Start 12/08/16 at 11:03 ; Stop 12/08/16 at 11:04; Status DC Heparin Sodium/ Sodium Chloride 1,000 unit 1X ONCE IART Last administered on 12/08/16t 11:18; Start 12/08/16 at 11:15; Stop 12/08/16 at 11:16; Status DC Midazolam HCl (Versed) 2 mg 1X ONCE IV Last administered on 12/08/16 11:18; Start 12/08/16 at 11:15; Stop 12/08/16 at 11:16; Status DC Fentanyl Citrate (Fentanyl 2ml Vial) 100 mcg 1X ONCE IV Last administered on 12/08/16 11:19; Start 12/08/16 at 11:15; Stop 12/08/16 at 11:16; Status DC Heparin Sodium (Porcine) (Heparin Sodium) 4,000 unit 1X ONCE IV Last administered on 12/08/16 11:21; Start 12/08/16 at 11:15; Stop 12/08/16 at 11 :16; Status DC Lidocaine/ Epinephrine (Xylocaine 1%-Epi 1:100,000) 20 ml 1X ONCE INJ Last administered on 12/08/16 11:19; Start 12/08/16 at 11:15; Stop 12/08/16 at 11 :16; Status DC Cefazolin Sodium 50 ml @ 100 mls/hr 1X ONCE IV Last administered on 11:08; Start 12/08/16 at 11:30; Stop 12/08/16 at 11:59; Status DC Active Scripts Active Flagyl (Metronidazole) 500 Mg Tablet 500 Mg PO Q8HRS Nephro-Wagner Tablet (Folic Acid/Vitamin B Comp W-C) 0.8 Mg Tablet 1 Tab PO DAILY Atorvastatin Calcium 10 Mg Tablet 10 Mg PO QHS Vitamin D2 (Ergocalciferol (Vitamin D2)) 50,000 Unit Capsule 50,000 Unit PO WEEKLY Calcitriol 0.25 Mcg Capsule 0.5 Mcg PO DAILY Reported Metoprolol Tartrate 50 Mg Tablet 1 Tab PO BID Amlodipine Besylate 5 Mg Tablet 5 Mg PO DAILY Sensipar (Cinacalcet Hcl) 30 Mg Tablet 1 Tab PO DAILY Aspirin 81 Mg Tab.chew 1 Tab PO DAILY Renvela (Sevelamer Carbonate) 800 Mg Tablet 3 Tab PO TIDWMEALS Ferrous Sulfate 325 Mg Tablet 1 Tab PO DAILY Lasix (Furosemide) 80 Mg Tablet 1 Tab PO BID Vitals/I & O Vital Sign - Last 24 Hours 12/07/16 12/07/16 12/07/16 12/07/16 13:42 13:56 13:56 14:00 Temp 97.8 97.8 Pulse 94 84 Resp 19 22 B/P (MAP) 156/76 148/83 Pulse Ox 100 97 100 O2 Delivery Bag Valve Mask Mechanical Ventilator Ventilator Ventilator O2 Flow Rate 15 12/07/16 12/07/16 12/07/16 12/07/16 14:15 14:30 14:45 14:54 Pulse 88 101 99 Resp 28 22 B/P (MAP) 136/79 177/97 146/68 Pulse Ox 96 90 95 91 O2 Delivery Bag Valve Mask Bag Valve Mask BiPAP/CPAP BiPAP/CPAP O2 Flow Rate 15 15 12/07/16 12/07/16 12/07/16 12/07/16 15:00 15:14 15:30 15:45 Pulse 93 100 92 96 Resp 22 20 20 20 B/P (MAP) 145/70 168/90 147/77 147/77 Pulse Ox 94 86 94 95 O2 Delivery BiPAP/CPAP BiPAP/CPAP BiPAP/CPAP 12/07/16 12/07/16 12/07/16 12/07/16 16:00 16:00 16:15 16:15 Temp 97.5 97.5 Pulse 96 99 Resp 20 25 B/P (MAP) 152/64 161/80 (107) Pulse Ox 96 96 O2 Delivery BiPAP/CPAP Bi-pap Bi-pap BiPAP/CPAP O2 Flow Rate 15.0 15.0 12/07/16 12/07/16 12/07/16 12/07/16 19:00 20:00 20:00 20:36 Temp 97.2 97.2 Pulse 82 85 82 Resp 16 20 B/P (MAP) 142/82 (102) 149/80 (103) 149/80 Pulse Ox 93 98 O2 Delivery Nasal Cannula Nasal Cannula Nasal Cannula O2 Flow Rate 6.0 6.0 6.0 12/07/16 12/07/16 12/07/16 12/07/16 21:00 22:00 23:00 23:46 Pulse 84 75 73 Resp 17 18 17 B/P (MAP) 143/82 (102) 137/84 (101) 121/71 (88) Pulse Ox 97 94 95 O2 Delivery Nasal Cannula Nasal Cannula Nasal Cannula Nasal Cannula O2 Flow Rate 6.0 6.0 6.0 4.0 12/08/16 12/08/16 12/08/16 12/08/16 00:00 01:00 02:00 03:00 Temp 97.6 97.6 Pulse 79 69 73 70 Resp 17 17 22 15 B/P (MAP) 136/77 (96) 136/76 (96) 140/83 (102) 132/73 (92) Pulse Ox 94 93 93 93 O2 Delivery Nasal Cannula Nasal Cannula Nasal Cannula Nasal Cannula O2 Flow Rate 4.0 4.0 4.0 4.0 12/08/16 12/08/16 12/08/16 12/08/16 04:00 04:00 05:00 06:00 Temp 97.8 97.8 Pulse 76 78 70 Resp 17 16 17 B/P (MAP) 138/76 (96) 138/84 (102) 149/82 (104) Pulse Ox 97 94 91 O2 Delivery Nasal Cannula Nasal Cannula Nasal Cannula Nasal Cannula O2 Flow Rate 4.0 4.0 4.0 4.0 12/08/16 12/08/16 12/08/16 12/08/16 07:00 08:00 08:05 09:05 Temp 97.8 97.8 Pulse 78 76 80 Resp 20 18 20 B/P (MAP) 146/97 (113) 166/94 (118) 159/89 (112) Pulse Ox 95 96 95 O2 Delivery Nasal Cannula Nasal Cannula Nasal Cannula Nasal Cannula O2 Flow Rate 4.0 3.0 3.0 2.0 12/08/16 12/08/16 12/08/16 12/08/16 09:08 09:10 10:05 11:19 Pulse 77 77 82 Resp 18 16 B/P (MAP) 159/89 159/89 157/83 (107) Pulse Ox 93 93 O2 Delivery Nasal Cannula Nasal Cannula O2 Flow Rate 2.0 3.0 12/08/16 12/08/16 12/08/16 12:00 12:00 12:00 Temp 97.7 97.7 Pulse 74 Resp 14 B/P (MAP) 130/72 (91) Pulse Ox 91 91 O2 Delivery Nasal Cannula Nasal Cannula Nasal Cannula O2 Flow Rate 3.0 2.0 2.0 Intake and Output 12/08/16 12/08/16 12/09/16 15:00 23:00 07:00 Output Total 200 ml Balance -200 ml DEVEN MARIEEL K III DO Dec 08, 2016 13:17
[2016-12-08] MEDS ORDERED: IV NORMAL SALINE 1000ML BAG 1,000 ML IV PRN ×2 (16:53)
[2016-12-08] MEDS ORDERED: diphenhydrAMINE 50 MG/ML VIAL IV PRN ×2 (17:00)
[2016-12-08] MEDS ORDERED: DIALYSIS PATIENT. MC PRN (17:00)
[2016-12-08] MEDS ORDERED: 0.9 % SODIUM CHLORIDE 10 ML DISP.SYRIN. IV PRN ×2 (17:00)
[2016-12-08] MEDS ORDERED: ALBUMIN HUMAN 25% 200 ML IV PRN (17:00)
[2016-12-08] MEDS: ZOLPIDEM 5 MG TABLET. PO PRN (20:40)
[2016-12-08] MEDS: ATORVASTATIN CALCIUM 10 MG TABLET. PO SCH (20:41)
[2016-12-09] VITALS (17 sets, daily range): BP systolic 111–142; BP diastolic 57–79
[2016-12-09 00:16] LABS: HEP B SURFACE ABDY Reactive (.)
[2016-12-09 05:49] LABS: BASO % 1 % (0-3); EOS % 3 % (0-3); HEMATOCRIT 23.5 % (36.0-47.0); HEMOGLOBIN 7.9 g/dL (12.0-15.5); LYMPH # 1.1 x10^3/uL (1.0-4.8); LYMPH % 12 % (24-48); MEAN CORPUSCULAR HEMOGLOBIN 33 pg (25-35); MEAN CORPUSCULAR HGB CONC 34 g/dL (31-37); MEAN CORPUSCULAR VOLUME 97 fL (79-100); MONO % 10 % (0-9); NEUT % 74 % (31-73); PLATELET COUNT 216 x10^3/uL (140-400); RED BLOOD COUNT 2.42 x10^6/uL (3.50-5.40); RED CELL DISTRIBUTION WIDTH 15.9 % (11.5-14.5); WHITE BLOOD COUNT 9.1 x10^3/uL (4.0-11.0)
[2016-12-09 06:16] LABS: ALBUMIN 2.4 g/dL (3.4-5.0); PHOSPHORUS 5.3 mg/dL (2.6-4.7); POTASSIUM 3.8 mmol/L (3.5-5.1)
--- NOTE | 2016-12-09 08:44 | PDOC ---
SUBJECTIVE ROS ESRD Doign and feeling better today CVS: no Orthopnea, no CP RESP: no SOB, no CABALLERO GI: no Nausea, no Vomiting : no Dysuria, no Urgency OBJECTIVE Vital Signs Vital Signs Date Time Temp Pulse Resp B/P (MAP) Pulse Ox O2 Delivery O2 Flow Rate FiO2 12/09/16 07:00 98.4 86 19 140/78 (98) 95 Nasal Cannula 2.0 98.4 PHYSICAL EXAM Physical Exam General Appearance: Awake Alert Oriented x 3 In no resp Distress Eyes: VIsion Unchanged Conjunctiva Normal EN: No EN Drainage Mucous Memb. moist Neck: no JVD min JVP Supple no Thyromegaly CVS: S1 S2 soft Murmur No Gallop No Rub no Edema Resp: rare basal Rales no Rhonchi no Acc. Muscle use GI: BS +ve NO Bruit Non Tender + Distended : no CVA tenderness; no Suprapubic Tenderness Assessment & Plan: ESRD: Dialysis as below F 180 NR 3.0 Hrs 3 K 2.5 Ca 140 Na 353 HC03 Qb 350 + Qd 500+ Heparin 0 Units Uf 1-2 Kgs May give 25-50 gms of 25% Albumin if needed to maintain Hemodynamic stability Treatment plan reviewed and discussed with dental assisting instructor ^ed k - resolved today Anemia: Epogen as ordered; would like to hold off of Bl. Transfusion due to potential Txp Candidacy. HTN: Current BP meds reviewed. See orders for changes. reval after Fluid status optimization fl. Overload - UF with HD done yest; she is now occ Dz without obvious drop in BP so will check Carotid duplex poorly flowing PD Cath - appreciate Dr Desir's help with same - she is now s/p repositioning of PD catheter, due to omental and small bowel serosal plugs in the pigtail openings. HypoAlbuminemia - suspect related to PD - anticipate some improvement once on short term HD HypoCalcemia - Better now ^ed Phos - much improved Subj SOB - due to fl overload Better with HD as done yest Significant ^ PHos - Binders restarted - watch trend Discussed Plan of Care and prognosis etc. at length with pt and OP PD RN COMMENT/RELEVANT DATA Meds Current Medications Medications (Trade) Dose Ordered Sig/Marcus Start Time Stop Time Status Last Admin Dose Admin Acetaminophen (Tylenol) 650 mg PRN Q6HRS PRN 12/05/16 16:15 12/08/16 09:09 650 MG Al Hydroxide/Mg Hydroxide (Mylanta Plus Xs) 30 ml PRN Q3HRS PRN 12/05/16 16:15 12/06/16 09:34 DC Albumin Human 200 ml @ 200 mls/hr 1X PRN PRN 12/08/16 17:00 12/08/16 22:59 DC Albuterol Sulfate (Ventolin Neb Soln) 2.5 mg 1X ONCE 12/07/16 14:15 12/07/16 14:16 DC 12/07/16 14:14 2.5 MG Amlodipine Besylate (Norvasc) 5 mg DAILY 12/06/16 09:00 12/08/16 09:10 5 MG Atorvastatin Calcium (Lipitor) 10 mg QHS 12/05/16 21:00 12/08/16 20:41 10 MG Bisacodyl (Dulcolax Supp) 10 mg PRN DAILY PRN 12/05/16 16:15 Bupivacaine HCl/ Epinephrine Bitart (Sensorcain-Mpf Epi 0.5%-1:[id number]) 10 ml STK-MED ONCE 12/07/16 10:50 12/07/16 11:50 DC 12/07/16 12:43 5 ML Calcitriol (Rocaltrol) 0.5 mcg DAILY 12/06/16 09:00 12/08/16 09:11 0.5 MCG Calcium Carbonate/ Glycine (Tums) 1,000 mg TIDAC 12/06/16 09:45 12/08/16 20:41 1,000 MG Cefazolin Sodium 50 ml @ 100 mls/hr 1X ONCE 12/08/16 11:30 12/08/16 11:59 DC 12/08/16 11:08 100 MLS/HR Cefazolin Sodium/ Dextrose 50 ml @ 100 mls/hr 1X ONCE 12/07/16 11:30 12/07/16 11:59 DC 12/07/16 12:27 100 MLS/HR Cinacalcet (Sensipar) 30 mg DAILY 12/06/16 09:00 12/06/16 09:34 DC Darbepoetin [place] (Aranesp) 60 mcg WEEKLYHS 12/06/16 21:00 12/06/16 21:22 60 MCG Dexamethasone Sodium Phosphate (Decadron) 20 mg STK-MED ONCE 12/07/16 13:18 12/07/16 13:19 DC Diphenhydramine HCl (Benadryl) 25 mg 1X PRN PRN 12/08/16 17:00 12/09/16 16:59 Docusate Sodium (Colace) 100 mg BID 12/05/16 21:00 12/08/16 20:41 100 MG Ergocalciferol (Vitamin D2) 50,000 unit WEEKLY 12/12/16 09:00 Fentanyl Citrate (Fentanyl 2ml Vial) 100 mcg 1X ONCE 12/08/16 11:15 12/08/16 11:16 DC 12/08/16 11:19 50 MCG Ferrous Sulfate (Feosol) 325 mg DAILY 12/06/16 09:00 12/08/16 12:07 325 MG Furosemide (Lasix) 80 mg TID 12/07/16 14:00 12/08/16 09:07 DC 12/07/16 20:36 80 MG Glycopyrrolate (Robinul) 0.2 mg 1X ONCE 12/07/16 14:32 12/07/16 14:40 DC 12/07/16 14:32 0.2 MG Heparin Sodium (Porcine) (Heparin Sodium) 4,000 unit 1X ONCE 12/08/16 11:15 12/08/16 11:16 DC 12/08/16 11:21 4,000 UNIT Heparin Sodium (Porcine) 5000 unit/Sodium Chloride 505 ml @ 505 mls/hr 1X PERIOP ONCE 12/07/16 12:30 12/07/16 13:29 DC 12/07/16 12:43 Heparin Sodium/ Sodium Chloride 1,000 unit 1X ONCE 12/08/16 11:15 12/08/16 11:16 DC 12/08/16 11:18 1,000 UNIT Info (Do NOT chart on this entry -- for MONITORING) 1 each PRN DAILY PRN 12/06/16 08:45 12/08/16 08:44 DC Info (PHARMACY MONITORING -- do not chart) 1 each PRN DAILY PRN 12/08/16 17:00 Iohexol (Omnipaque 300 Mg/ml) 50 ml 1X ONCE 12/06/16 08:45 12/06/16 08:46 DC 12/06/16 08:45 20 ML Lidocaine HCl (Lidocaine Pf 2% Vial) 5 ml STK-MED ONCE 12/07/16 13:18 12/07/16 13:19 DC Lidocaine/ Epinephrine (Xylocaine 1%-Epi 1:100,000) 20 ml 1X ONCE 12/08/16 11:15 12/08/16 11:16 DC 12/08/16 11:19 8 ML Lidocaine/Sodium Bicarbonate (Buffered Lidocaine 1%) 20 ml STK-MED ONCE 12/08/16 09:33 12/08/16 09:34 DC Loperamide HCl (Imodium) 2 mg PRN Q15MIN PRN 12/05/16 17:15 Magnesium Hydroxide (Milk Of Magnesia) 2,400 mg PRN Q12HR PRN 12/05/16 16:15 Magnesium Sulfate/ Dextrose 50 ml @ 25 mls/hr PRN DAILY PRN 12/07/16 09:15 12/07/16 10:33 25 MLS/HR Metoprolol Tartrate (Lopressor) 50 mg BID 12/05/16 21:00 12/08/16 09:08 50 MG Midazolam HCl (Versed) 2 mg 1X ONCE 12/08/16 11:15 12/08/16 11:16 DC 12/08/16 11:18 2 MG Morphine Sulfate 1 mg PRN Q1HR PRN 12/05/16 16:15 12/07/16 09:39 DC Neomycin/ Polymyxin/ Bacitracin (Triple Antibiotic Ointment) 1 pkt STK-MED ONCE 12/07/16 10:50 12/07/16 11:50 DC 12/07/16 13:19 1 PKT Neostigmine Methylsulfate (Bloxiverz) 2 mg 1X ONCE 12/07/16 14:30 12/07/16 14:39 DC 12/07/16 14:32 2 MG Ondansetron HCl (Zofran) 4 mg STK-MED ONCE 12/07/16 13:18 12/07/16 13:19 DC Oxycodone HCl (Roxicodone) 5 mg PRN Q3HRS PRN 12/05/16 16:15 12/08/16 16:37 5 MG Polyethylene Glycol (miraLAX PACKET) 17 gm DAILY 12/07/16 10:00 Prochlorperazine (Compazine) 25 mg PRN Q12HR PRN 10/15/17 16:15 Prochlorperazine Edisylate (Compazine) 10 mg 1X ONCE 12/07/16 14:45 12/07/16 14:46 DC 12/07/16 14:00 10 MG Prochlorperazine Maleate (Compazine) 5 mg PRN Q6HRS PRN 12/05/16 17:15 Propofol 20 ml @ As Directed STK-MED ONCE 12/07/16 13:18 12/07/16 13:19 DC Sevelamer Carbonate (Renvela) 2,400 mg TIDWMEALS 12/05/16 17:00 12/08/16 20:40 2,400 MG Sevoflurane (Ultane) 60 ml STK-MED ONCE 12/07/16 13:19 12/07/16 13:20 DC Sodium Chloride 1,000 ml @ 400 mls/hr Q2H30M PRN 12/08/16 16:53 12/09/16 04:52 DC Sodium Chloride (Normal Saline Flush) 10 ml 1X PRN PRN 12/08/16 17:00 12/09/16 16:59 Succinylcholine Chloride (Anectine) 200 mg STK-MED ONCE 12/07/16 13:57 12/07/16 13:58 DC Vecuronium [place] (Norcuron Bolus) 10 mg STK-MED ONCE 12/07/16 12:37 12/07/16 12:38 DC Vitamin B Complex/ Vitamin C (Daniela-Wagner) 1 tab DAILY 12/06/16 09:00 12/08/16 12:06 1 TAB Zolpidem Tartrate (Ambien) 5 mg PRN QHS PRN 12/05/16 16:15 12/08/16 20:40 5 MG Lab Laboratory Tests Test 12/08/16 10:18 12/09/16 05:10 Hepatitis B Surface Antigen Negative (Negative) Hepatitis B Surface Antibody Reactive (.) Hepatitis B Core Total Antibody Negative (Negative) White Blood Count 9.1 x10^3/uL (4.0-11.0) Red Blood Count 2.42 x10^6/uL (3.50-5.40) Hemoglobin 7.9 g/dL (12.0-15.5) Hematocrit 23.5 % (36.0-47.0) Mean Corpuscular Volume 97 fL (79-100) Mean Corpuscular Hemoglobin 33 pg (25-35) Mean Corpuscular Hemoglobin Concent 34 g/dL (31-37) Red Cell Distribution Width 15.9 % (11.5-14.5) Platelet Count 216 x10^3/uL (140-400) Neutrophils (%) (Auto) 74 % (31-73) Lymphocytes (%) (Auto) 12 % (24-48) Monocytes (%) (Auto) 10 % (0-9) Eosinophils (%) (Auto) 3 % (0-3) Basophils (%) (Auto) 1 % (0-3) Neutrophils # (Auto) 6.7 x10^3uL (1.8-7.7) Lymphocytes # (Auto) 1.1 x10^3/uL (1.0-4.8) Monocytes # (Auto) 1.0 x10^3/uL (0.0-1.1) Eosinophils # (Auto) 0.3 x10^3/uL (0.0-0.7) Basophils # (Auto) 0.0 x10^3/uL (0.0-0.2) Sodium Level 141 mmol/L (136-145) Potassium Level 3.8 mmol/L (3.5-5.1) Chloride Level 101 mmol/L (98-107) Carbon Dioxide Level 30 mmol/L (21-32) Anion Gap 10 (6-14) Blood Urea Nitrogen 29 mg/dL (7-20) Creatinine 6.0 mg/dL (0.6-1.0) Estimated GFR (Cockcroft-Gault) 7.0 Glucose Level 82 mg/dL (70-99) Calcium Level 8.0 mg/dL (8.5-10.1) Phosphorus Level 5.3 mg/dL (2.6-4.7) Magnesium Level 2.0 mg/dL (1.8-2.4) Albumin 2.4 g/dL (3.4-5.0) YASMEEN CARD MD Dec 09, 2016 08:44
[2016-12-09] MEDS: SEVELAMER CARBONATE 800 MG TABLET. PO SCH ×3 (08:47→17:17)
[2016-12-09] MEDS: CALCITRIOL 0.25 MCG CAPSULE. PO SCH (08:47)
[2016-12-09] MEDS: FERROUS SULFATE 325 MG TABLET. PO SCH (08:48)
[2016-12-09] MEDS: POLYETHYLENE GLYCOL 3350 17 GM PACKET. PO SCH (08:48)
[2016-12-09] MEDS: CALCIUM CARBONATE 500 MG TAB.CHEW PO SCH ×3 (08:48→17:17)
[2016-12-09] MEDS: METOPROLOL TART IMMED RELEASE 50 MG TABLET. PO SCH ×2 (08:50→21:06)
[2016-12-09] MEDS: DOCUSATE SODIUM 100 MG CAPSULE. PO SCH ×2 (08:50→21:05)
[2016-12-09] MEDS: FOLIC/VIT B COMP W-C (RENAL) TABLET. PO SCH (08:50)
[2016-12-09] MEDS: amLODIPine BESYLATE 5 MG TABLET PO SCH (08:50)
--- NOTE | 2016-12-09 10:28 | PDOC ---
PROGRESS NOTES Chief Complaint Chief Complaint Malfunctioning PD cath ASSESSMENT AND PLAN: 1. Malfunctioning PD cath: s/p laparoscopic reposition of PD cath and lysis of adhesions on 12/07. recovering well 2. Dyspnea: 2/2 fluid overload. now resolved 3. ESRD: on temporary HD, planned renal transplant with sister donor 4. Anemia: 2/2 ESRD, on EPO, iron as per nephrology 5. SLE: not on any meds currently 6. Hyperkalemia: resolved 7. Hypoalbuminemia: moderate. 2/2 ESRD, malnutrition 8. "pancreatitis": elevated lipase, most likely 2/2 peritoneal manipulations. asymptomatic. recheck lipase 9. Prophylaxis: SQ heparin History of Present Illness History of Present Illness feels well, Delcid more noticeable than abd incisions, requesting tylenol Vitals Vitals Vital Signs Date Time Temp Pulse Resp B/P (MAP) Pulse Ox O2 Delivery O2 Flow Rate FiO2 12/09/16 10:00 88 20 121/63 (82) 96 Room Air 12/09/16 07:00 98.4 2.0 98.4 Physical Exam General: Alert, Oriented X3, Cooperative, No acute distress Heart: Regular rate, No murmurs Lungs: Clear Abdomen: Normal bowel sounds, Soft, No tenderness, Other (PD cath in place, gauze packed) Extremities: No clubbing, No cyanosis Skin: No rashes Labs LABS Laboratory Tests Test 12/08/16 10:18 12/09/16 05:10 Hepatitis B Surface Antigen Negative (Negative) Hepatitis B Surface Antibody Reactive (.) Hepatitis B Core Total Antibody Negative (Negative) White Blood Count 9.1 x10^3/uL (4.0-11.0) Red Blood Count 2.42 x10^6/uL (3.50-5.40) Hemoglobin 7.9 g/dL (12.0-15.5) Hematocrit 23.5 % (36.0-47.0) Mean Corpuscular Volume 97 fL (79-100) Mean Corpuscular Hemoglobin 33 pg (25-35) Mean Corpuscular Hemoglobin Concent 34 g/dL (31-37) Red Cell Distribution Width 15.9 % (11.5-14.5) Platelet Count 216 x10^3/uL (140-400) Neutrophils (%) (Auto) 74 % (31-73) Lymphocytes (%) (Auto) 12 % (24-48) Monocytes (%) (Auto) 10 % (0-9) Eosinophils (%) (Auto) 3 % (0-3) Basophils (%) (Auto) 1 % (0-3) Neutrophils # (Auto) 6.7 x10^3uL (1.8-7.7) Lymphocytes # (Auto) 1.1 x10^3/uL (1.0-4.8) Monocytes # (Auto) 1.0 x10^3/uL (0.0-1.1) Eosinophils # (Auto) 0.3 x10^3/uL (0.0-0.7) Basophils # (Auto) 0.0 x10^3/uL (0.0-0.2) Sodium Level 141 mmol/L (136-145) Potassium Level 3.8 mmol/L (3.5-5.1) Chloride Level 101 mmol/L (98-107) Carbon Dioxide Level 30 mmol/L (21-32) Anion Gap 10 (6-14) Blood Urea Nitrogen 29 mg/dL (7-20) Creatinine 6.0 mg/dL (0.6-1.0) Estimated GFR (Cockcroft-Gault) 7.0 Glucose Level 82 mg/dL (70-99) Calcium Level 8.0 mg/dL (8.5-10.1) Phosphorus Level 5.3 mg/dL (2.6-4.7) Magnesium Level 2.0 mg/dL (1.8-2.4) Albumin 2.4 g/dL (3.4-5.0) TY SHORT MD Dec 09, 2016 10:28
--- NOTE | 2016-12-09 10:37 | RAD ---
Indication congestive heart failure. Difficulty breathing. A single view of the chest was obtained and is compared to a study 2 days earlier. Heart size is unchanged. Pulmonary infiltrates have improved substantially compatible with improvement in congestive heart failure seen previously. Aeration of the left lung base has improved substantially. There is now, however, volume loss at the right lung base. This probably reflects some pleural fluid and atelectasis. Underlying pneumonia is not entirely excluded. Postoperative changes prosthetic valve and atrial clip are noted. There has been interval placement of a right-sided dialysis catheter. The tip is appropriately positioned. No pneumothorax is seen. IMPRESSION: Interval improvement in changes of congestive heart failure. Improved aeration of the left lung base. New volume loss at the right lung base may reflect pleural fluid and atelectasis. Underlying pneumonia is not entirely excluded. Right-sided dialysis catheter. No complication seen
--- NOTE | 2016-12-09 10:43 | PDOC ---
SURGICAL PROGRESS NOTE Subjective no complaints sitting up, on phone Vital Signs Vital Signs Date Time Temp Pulse Resp B/P (MAP) Pulse Ox O2 Delivery O2 Flow Rate FiO2 12/09/16 10:00 88 20 121/63 (82) 96 Room Air 12/09/16 07:00 98.4 2.0 98.4 I&O Intake and Output 12/10/16 07:00 Output Total 100 ml Balance -100 ml Output Urine Total 100 ml General: Alert, Oriented X3, Cooperative, No acute distress Abdomen: Soft, Other (PD cath in place) Labs Laboratory Tests Test 12/07/16 17:55 12/08/16 05:07 12/08/16 10:18 12/09/16 05:10 Nasal Screen MRSA (PCR) Negative (Negative) Hemoglobin 7.8 g/dL (12.0-15.5) 7.9 g/dL (12.0-15.5) Sodium Level 140 mmol/L (136-145) 141 mmol/L (136-145) Potassium Level 5.4 mmol/L (3.5-5.1) 3.8 mmol/L (3.5-5.1) Chloride Level 103 mmol/L (98-107) 101 mmol/L (98-107) Carbon Dioxide Level 22 mmol/L (21-32) 30 mmol/L (21-32) Anion Gap 15 (6-14) 10 (6-14) Blood Urea Nitrogen 62 mg/dL (7-20) 29 mg/dL (7-20) Creatinine 10.9 mg/dL (0.6-1.0) 6.0 mg/dL (0.6-1.0) Estimated GFR (Cockcroft-Gault) 3.5 7.0 Glucose Level 82 mg/dL (70-99) 82 mg/dL (70-99) Calcium Level 7.8 mg/dL (8.5-10.1) 8.0 mg/dL (8.5-10.1) Phosphorus Level 9.0 mg/dL (2.6-4.7) 5.3 mg/dL (2.6-4.7) Magnesium Level 2.2 mg/dL (1.8-2.4) 2.0 mg/dL (1.8-2.4) Albumin 2.6 g/dL (3.4-5.0) 2.4 g/dL (3.4-5.0) Hepatitis B Surface Antigen Negative (Negative) Hepatitis B Surface Antibody Reactive (.) Hepatitis B Core Total Antibody Negative (Negative) White Blood Count 9.1 x10^3/uL (4.0-11.0) Red Blood Count 2.42 x10^6/uL (3.50-5.40) Hematocrit 23.5 % (36.0-47.0) Mean Corpuscular Volume 97 fL (79-100) Mean Corpuscular Hemoglobin 33 pg (25-35) Mean Corpuscular Hemoglobin Concent 34 g/dL (31-37) Red Cell Distribution Width 15.9 % (11.5-14.5) Platelet Count 216 x10^3/uL (140-400) Neutrophils (%) (Auto) 74 % (31-73) Lymphocytes (%) (Auto) 12 % (24-48) Monocytes (%) (Auto) 10 % (0-9) Eosinophils (%) (Auto) 3 % (0-3) Basophils (%) (Auto) 1 % (0-3) Neutrophils # (Auto) 6.7 x10^3uL (1.8-7.7) Lymphocytes # (Auto) 1.1 x10^3/uL (1.0-4.8) Monocytes # (Auto) 1.0 x10^3/uL (0.0-1.1) Eosinophils # (Auto) 0.3 x10^3/uL (0.0-0.7) Basophils # (Auto) 0.0 x10^3/uL (0.0-0.2) Lipase 350 U/L (73-393) Laboratory Tests Test 12/09/16 05:10 White Blood Count 9.1 x10^3/uL (4.0-11.0) Red Blood Count 2.42 x10^6/uL (3.50-5.40) Hemoglobin 7.9 g/dL (12.0-15.5) Hematocrit 23.5 % (36.0-47.0) Mean Corpuscular Volume 97 fL (79-100) Mean Corpuscular Hemoglobin 33 pg (25-35) Mean Corpuscular Hemoglobin Concent 34 g/dL (31-37) Red Cell Distribution Width 15.9 % (11.5-14.5) Platelet Count 216 x10^3/uL (140-400) Neutrophils (%) (Auto) 74 % (31-73) Lymphocytes (%) (Auto) 12 % (24-48) Monocytes (%) (Auto) 10 % (0-9) Eosinophils (%) (Auto) 3 % (0-3) Basophils (%) (Auto) 1 % (0-3) Neutrophils # (Auto) 6.7 x10^3uL (1.8-7.7) Lymphocytes # (Auto) 1.1 x10^3/uL (1.0-4.8) Monocytes # (Auto) 1.0 x10^3/uL (0.0-1.1) Eosinophils # (Auto) 0.3 x10^3/uL (0.0-0.7) Basophils # (Auto) 0.0 x10^3/uL (0.0-0.2) Sodium Level 141 mmol/L (136-145) Potassium Level 3.8 mmol/L (3.5-5.1) Chloride Level 101 mmol/L (98-107) Carbon Dioxide Level 30 mmol/L (21-32) Anion Gap 10 (6-14) Blood Urea Nitrogen 29 mg/dL (7-20) Creatinine 6.0 mg/dL (0.6-1.0) Estimated GFR (Cockcroft-Gault) 7.0 Glucose Level 82 mg/dL (70-99) Calcium Level 8.0 mg/dL (8.5-10.1) Phosphorus Level 5.3 mg/dL (2.6-4.7) Magnesium Level 2.0 mg/dL (1.8-2.4) Albumin 2.4 g/dL (3.4-5.0) Lipase 350 U/L (73-393) Assessment/Plan supportive care Problems: ROWENA UP APRN Dec 09, 2016 10:43
--- NOTE | 2016-12-09 10:48 | RAD ---
EXAM: Carotid Doppler sonogram. HISTORY: Dizziness. TECHNIQUE: York scale and color Doppler sonographic evaluation of the neck with spectral waveform analysis was performed and static images are submitted for review. FINDINGS: RIGHT: The peak systolic velocity within the common carotid artery is 121 cm/sec. The peak systolic velocity within the internal carotid artery is 138 cm/sec and the end diastolic velocity within the internal carotid artery is 42 cm/sec. The ICA/CCA ratio is 1.14. Grayscale images demonstrate scattered calcified plaquing. LEFT: The peak systolic velocity within the common carotid artery is 163 cm/sec. The peak systolic velocity within the internal carotid artery is 147 cm/sec and the end diastolic velocity within the internal carotid artery is 39 cm/sec. The ICA/CCA ratio is 1.34. Grayscale images demonstrate scattered calcified plaquing. There is antegrade flow within both vertebral arteries. IMPRESSION: 1. Findings consistent with 50-69% stenosis within both internal carotid arteries. PQRS Compliance Statement - Stenosis calculations for CT, MR and conventional angiography are based upon measurement of the distal ICA diameter in accordance with the NASCET methodology. Stenosis calculations for carotid ultrasound studies are derived from validated velocity criteria which are known to correlate with the NASCET methodology.
[2016-12-09] MEDS: HEPARIN PF for SUB-Q USE 5,000 UNIT/0.5 ML VIAL. SQ SCH ×2 (11:04→21:00)
[2016-12-09] MEDS: ACETAMINOPHEN 325 MG TABLET. PO PRN ×2 (11:12→21:14)
[2016-12-09] MEDS ORDERED: IV NORMAL SALINE 1000ML BAG 1,000 ML IV PRN ×2 (12:04)
[2016-12-09] MEDS ORDERED: 0.9 % SODIUM CHLORIDE 10 ML DISP.SYRIN. IV PRN ×2 (12:15)
[2016-12-09] MEDS ORDERED: DIALYSIS PATIENT. MC PRN (12:15)
[2016-12-09] MEDS ORDERED: ALBUMIN HUMAN 25% 200 ML IV PRN (12:15)
[2016-12-09] MEDS ORDERED: diphenhydrAMINE 50 MG/ML VIAL IV PRN ×2 (12:15)
--- NOTE | 2016-12-09 15:15 | PDOC ---
PULMONARY PROGRESS NOTES Subjective PT LESS SOA OFF 02 Vitals Vital Signs Date Time Temp Pulse Resp B/P (MAP) Pulse Ox O2 Delivery O2 Flow Rate FiO2 12/09/16 11:00 98.5 88 20 120/63 (82) 95 Room Air 98.5 12/09/16 07:00 2.0 ROS: No Nausea, No Chest Pain, No Abdominal Pain, No Increase Cough General: Alert, No acute distress Lungs: Clear Cardiovascular: S1, S2 Abdomen: Soft, Non-tender Neuro Exam: Alert Extremities: No Edema Labs Laboratory Tests Test 12/07/16 17:55 12/08/16 05:07 12/08/16 10:18 12/09/16 05:10 Nasal Screen MRSA (PCR) Negative (Negative) Hemoglobin 7.8 g/dL (12.0-15.5) 7.9 g/dL (12.0-15.5) Sodium Level 140 mmol/L (136-145) 141 mmol/L (136-145) Potassium Level 5.4 mmol/L (3.5-5.1) 3.8 mmol/L (3.5-5.1) Chloride Level 103 mmol/L (98-107) 101 mmol/L (98-107) Carbon Dioxide Level 22 mmol/L (21-32) 30 mmol/L (21-32) Anion Gap 15 (6-14) 10 (6-14) Blood Urea Nitrogen 62 mg/dL (7-20) 29 mg/dL (7-20) Creatinine 10.9 mg/dL (0.6-1.0) 6.0 mg/dL (0.6-1.0) Estimated GFR (Cockcroft-Gault) 3.5 7.0 Glucose Level 82 mg/dL (70-99) 82 mg/dL (70-99) Calcium Level 7.8 mg/dL (8.5-10.1) 8.0 mg/dL (8.5-10.1) Phosphorus Level 9.0 mg/dL (2.6-4.7) 5.3 mg/dL (2.6-4.7) Magnesium Level 2.2 mg/dL (1.8-2.4) 2.0 mg/dL (1.8-2.4) Albumin 2.6 g/dL (3.4-5.0) 2.4 g/dL (3.4-5.0) Hepatitis B Surface Antigen Negative (Negative) Hepatitis B Surface Antibody Reactive (.) Hepatitis B Core Total Antibody Negative (Negative) White Blood Count 9.1 x10^3/uL (4.0-11.0) Red Blood Count 2.42 x10^6/uL (3.50-5.40) Hematocrit 23.5 % (36.0-47.0) Mean Corpuscular Volume 97 fL (79-100) Mean Corpuscular Hemoglobin 33 pg (25-35) Mean Corpuscular Hemoglobin Concent 34 g/dL (31-37) Red Cell Distribution Width 15.9 % (11.5-14.5) Platelet Count 216 x10^3/uL (140-400) Neutrophils (%) (Auto) 74 % (31-73) Lymphocytes (%) (Auto) 12 % (24-48) Monocytes (%) (Auto) 10 % (0-9) Eosinophils (%) (Auto) 3 % (0-3) Basophils (%) (Auto) 1 % (0-3) Neutrophils # (Auto) 6.7 x10^3uL (1.8-7.7) Lymphocytes # (Auto) 1.1 x10^3/uL (1.0-4.8) Monocytes # (Auto) 1.0 x10^3/uL (0.0-1.1) Eosinophils # (Auto) 0.3 x10^3/uL (0.0-0.7) Basophils # (Auto) 0.0 x10^3/uL (0.0-0.2) Lipase 350 U/L (73-393) Laboratory Tests Test 12/09/16 05:10 White Blood Count 9.1 x10^3/uL (4.0-11.0) Red Blood Count 2.42 x10^6/uL (3.50-5.40) Hemoglobin 7.9 g/dL (12.0-15.5) Hematocrit 23.5 % (36.0-47.0) Mean Corpuscular Volume 97 fL (79-100) Mean Corpuscular Hemoglobin 33 pg (25-35) Mean Corpuscular Hemoglobin Concent 34 g/dL (31-37) Red Cell Distribution Width 15.9 % (11.5-14.5) Platelet Count 216 x10^3/uL (140-400) Neutrophils (%) (Auto) 74 % (31-73) Lymphocytes (%) (Auto) 12 % (24-48) Monocytes (%) (Auto) 10 % (0-9) Eosinophils (%) (Auto) 3 % (0-3) Basophils (%) (Auto) 1 % (0-3) Neutrophils # (Auto) 6.7 x10^3uL (1.8-7.7) Lymphocytes # (Auto) 1.1 x10^3/uL (1.0-4.8) Monocytes # (Auto) 1.0 x10^3/uL (0.0-1.1) Eosinophils # (Auto) 0.3 x10^3/uL (0.0-0.7) Basophils # (Auto) 0.0 x10^3/uL (0.0-0.2) Sodium Level 141 mmol/L (136-145) Potassium Level 3.8 mmol/L (3.5-5.1) Chloride Level 101 mmol/L (98-107) Carbon Dioxide Level 30 mmol/L (21-32) Anion Gap 10 (6-14) Blood Urea Nitrogen 29 mg/dL (7-20) Creatinine 6.0 mg/dL (0.6-1.0) Estimated GFR (Cockcroft-Gault) 7.0 Glucose Level 82 mg/dL (70-99) Calcium Level 8.0 mg/dL (8.5-10.1) Phosphorus Level 5.3 mg/dL (2.6-4.7) Magnesium Level 2.0 mg/dL (1.8-2.4) Albumin 2.4 g/dL (3.4-5.0) Lipase 350 U/L (73-393) Medications Active Scripts Medications Dose Route/Sig Max Daily Dose Days Date Category Flagyl (Metronidazole) 500 Mg Tablet 500 Mg PO Q8HRS 08/02/16 Rx Metoprolol Tartrate 50 Mg Tablet 1 Tab PO BID 08/01/16 Reported Amlodipine Besylate 5 Mg Tablet 5 Mg PO DAILY 08/01/16 Reported Sensipar (Cinacalcet Hcl) 30 Mg Tablet 1 Tab PO DAILY 08/01/16 Reported Aspirin 81 Mg Tab.chew 1 Tab PO DAILY 08/01/16 Reported Renvela (Sevelamer Carbonate) 800 Mg Tablet 3 Tab PO TIDWMEALS 08/01/16 Reported Ferrous Sulfate 325 Mg Tablet 1 Tab PO DAILY 08/01/16 Reported Lasix (Furosemide) 80 Mg Tablet 1 Tab PO BID 08/05/15 Reported Nephro-Wagner Tablet (Folic Acid/Vitamin B Comp W-C) 0.8 Mg Tablet 1 Tab PO DAILY 07/04/15 Rx Atorvastatin Calcium 10 Mg Tablet 10 Mg PO QHS 07/04/15 Rx Vitamin D2 (Ergocalciferol (Vitamin D2)) 50,000 Unit Capsule 50,000 Unit PO WEEKLY 06/13/15 Rx Calcitriol 0.25 Mcg Capsule 0.5 Mcg PO DAILY 06/13/15 Rx Impression . 1. Expected acute respiratory failure post-hemodialysis catheter replacement and lysis of adhesions. 2. Bilateral pulmonary infiltrates compatible with pulmonary edema, doubt pneumonia. 3. Chronic renal failure, 4. Hypertension. 5. Hyperlipidemia. 6. Abnormal x-ray as indicated above. Plan . CONTINUE HD FOR NOW CXR IMPROVED, NEG FLUID BALANCE 1. S/P HD CATH 2. No need for antibiotics. 3. Deep venous thrombosis prophylaxis. 4. Continue home meds. 5. P.r.n. nebulized treatments. 6. IV Lasix. 7. P.r.n. BiPAP. ISABEL VIEIRA MD Dec 09, 2016 15:15
[2016-12-09] MEDS: ATORVASTATIN CALCIUM 10 MG TABLET. PO SCH (21:14)
[2016-12-09] MEDS: ZOLPIDEM 5 MG TABLET. PO PRN (23:03)
[2016-12-10 03:58] VITALS: BP 141/78
[2016-12-10 05:14] LABS: BASO % 1 % (0-3); EOS % 5 % (0-3); HEMATOCRIT 23.4 % (36.0-47.0); HEMOGLOBIN 7.8 g/dL (12.0-15.5); LYMPH # 1.2 x10^3/uL (1.0-4.8); LYMPH % 15 % (24-48); MEAN CORPUSCULAR HEMOGLOBIN 32 pg (25-35); MEAN CORPUSCULAR HGB CONC 33 g/dL (31-37); MEAN CORPUSCULAR VOLUME 97 fL (79-100); MONO % 13 % (0-9); NEUT % 68 % (31-73); PLATELET COUNT 183 x10^3/uL (140-400); RED BLOOD COUNT 2.42 x10^6/uL (3.50-5.40); RED CELL DISTRIBUTION WIDTH 15.3 % (11.5-14.5); WHITE BLOOD COUNT 7.9 x10^3/uL (4.0-11.0)
[2016-12-10 05:45] LABS: ALBUMIN 2.4 g/dL (3.4-5.0); CALCIUM 8.1 mg/dL (8.5-10.1); CREATININE 3.9 mg/dL (0.6-1.0); GFR 11.5; PHOSPHORUS 3.4 mg/dL (2.6-4.7)
[2016-12-10 06:55] VITALS: BP 138/70
[2016-12-10] MEDS: CALCIUM CARBONATE 500 MG TAB.CHEW PO SCH ×2 (07:30→11:30)
[2016-12-10] MEDS: SEVELAMER CARBONATE 800 MG TABLET. PO SCH ×2 (08:00→12:00)
[2016-12-10] MEDS ORDERED: IV NORMAL SALINE 1000ML BAG 1,000 ML IV PRN (08:31)
[2016-12-10] MEDS ORDERED: diphenhydrAMINE 50 MG/ML VIAL IV PRN ×2 (08:45)
[2016-12-10] MEDS ORDERED: DIALYSIS PATIENT. MC PRN (08:45)
[2016-12-10] MEDS ORDERED: ACETAMINOPHEN 500 MG TABLET PO PRN (08:45)
[2016-12-10] MEDS ORDERED: MIDODRINE 5 MG TABLET PO ONE (08:45)
[2016-12-10] MEDS ORDERED: cloNIDine HCL 0.1 MG TABLET PO PRN (08:45)
[2016-12-10] MEDS ORDERED: ALBUMIN HUMAN 25% 200 ML IV PRN (08:45)
[2016-12-10] MEDS ORDERED: LABETALOL 20 MG/4 ML DISP.SYRIN. IVP PRN (08:45)
--- NOTE | 2016-12-10 08:49 | PDOC ---
PULMONARY PROGRESS NOTES Subjective PT LESS SOA OFF 02 Vitals Vital Signs Date Time Temp Pulse Resp B/P (MAP) Pulse Ox O2 Delivery O2 Flow Rate FiO2 12/10/16 06:55 98.0 88 17 138/70 (92) 93 Room Air 98.0 12/09/16 07:00 2.0 ROS: No Nausea, No Chest Pain, No Abdominal Pain, No Increase Cough General: Alert, No acute distress Lungs: Clear Cardiovascular: S1, S2 Abdomen: Soft, Non-tender Neuro Exam: Alert Extremities: No Edema Labs Laboratory Tests Test 12/08/16 10:18 12/08/16 17:30 12/09/16 05:10 12/10/16 04:15 Hepatitis B Surface Antigen Negative (Negative) Hepatitis B Surface Antibody Reactive (.) Hepatitis B Core Total Antibody Negative (Negative) Hepatitis B Core IgM Antibody Negative (Negative) White Blood Count 9.1 x10^3/uL (4.0-11.0) 7.9 x10^3/uL (4.0-11.0) Red Blood Count 2.42 x10^6/uL (3.50-5.40) 2.42 x10^6/uL (3.50-5.40) Hemoglobin 7.9 g/dL (12.0-15.5) 7.8 g/dL (12.0-15.5) Hematocrit 23.5 % (36.0-47.0) 23.4 % (36.0-47.0) Mean Corpuscular Volume 97 fL (79-100) 97 fL (79-100) Mean Corpuscular Hemoglobin 33 pg (25-35) 32 pg (25-35) Mean Corpuscular Hemoglobin Concent 34 g/dL (31-37) 33 g/dL (31-37) Red Cell Distribution Width 15.9 % (11.5-14.5) 15.3 % (11.5-14.5) Platelet Count 216 x10^3/uL (140-400) 183 x10^3/uL (140-400) Neutrophils (%) (Auto) 74 % (31-73) 68 % (31-73) Lymphocytes (%) (Auto) 12 % (24-48) 15 % (24-48) Monocytes (%) (Auto) 10 % (0-9) 13 % (0-9) Eosinophils (%) (Auto) 3 % (0-3) 5 % (0-3) Basophils (%) (Auto) 1 % (0-3) 1 % (0-3) Neutrophils # (Auto) 6.7 x10^3uL (1.8-7.7) 5.3 x10^3uL (1.8-7.7) Lymphocytes # (Auto) 1.1 x10^3/uL (1.0-4.8) 1.2 x10^3/uL (1.0-4.8) Monocytes # (Auto) 1.0 x10^3/uL (0.0-1.1) 1.0 x10^3/uL (0.0-1.1) Eosinophils # (Auto) 0.3 x10^3/uL (0.0-0.7) 0.4 x10^3/uL (0.0-0.7) Basophils # (Auto) 0.0 x10^3/uL (0.0-0.2) 0.0 x10^3/uL (0.0-0.2) Sodium Level 141 mmol/L (136-145) 137 mmol/L (136-145) Potassium Level 3.8 mmol/L (3.5-5.1) 4.0 mmol/L (3.5-5.1) Chloride Level 101 mmol/L (98-107) 101 mmol/L (98-107) Carbon Dioxide Level 30 mmol/L (21-32) 30 mmol/L (21-32) Anion Gap 10 (6-14) 6 (6-14) Blood Urea Nitrogen 29 mg/dL (7-20) 15 mg/dL (7-20) Creatinine 6.0 mg/dL (0.6-1.0) 3.9 mg/dL (0.6-1.0) Estimated GFR (Cockcroft-Gault) 7.0 11.5 Glucose Level 82 mg/dL (70-99) 86 mg/dL (70-99) Calcium Level 8.0 mg/dL (8.5-10.1) 8.1 mg/dL (8.5-10.1) Phosphorus Level 5.3 mg/dL (2.6-4.7) 3.4 mg/dL (2.6-4.7) Magnesium Level 2.0 mg/dL (1.8-2.4) 1.8 mg/dL (1.8-2.4) Albumin 2.4 g/dL (3.4-5.0) 2.4 g/dL (3.4-5.0) Lipase 350 U/L (73-393) Laboratory Tests Test 12/10/16 04:15 White Blood Count 7.9 x10^3/uL (4.0-11.0) Red Blood Count 2.42 x10^6/uL (3.50-5.40) Hemoglobin 7.8 g/dL (12.0-15.5) Hematocrit 23.4 % (36.0-47.0) Mean Corpuscular Volume 97 fL (79-100) Mean Corpuscular Hemoglobin 32 pg (25-35) Mean Corpuscular Hemoglobin Concent 33 g/dL (31-37) Red Cell Distribution Width 15.3 % (11.5-14.5) Platelet Count 183 x10^3/uL (140-400) Neutrophils (%) (Auto) 68 % (31-73) Lymphocytes (%) (Auto) 15 % (24-48) Monocytes (%) (Auto) 13 % (0-9) Eosinophils (%) (Auto) 5 % (0-3) Basophils (%) (Auto) 1 % (0-3) Neutrophils # (Auto) 5.3 x10^3uL (1.8-7.7) Lymphocytes # (Auto) 1.2 x10^3/uL (1.0-4.8) Monocytes # (Auto) 1.0 x10^3/uL (0.0-1.1) Eosinophils # (Auto) 0.4 x10^3/uL (0.0-0.7) Basophils # (Auto) 0.0 x10^3/uL (0.0-0.2) Sodium Level 137 mmol/L (136-145) Potassium Level 4.0 mmol/L (3.5-5.1) Chloride Level 101 mmol/L (98-107) Carbon Dioxide Level 30 mmol/L (21-32) Anion Gap 6 (6-14) Blood Urea Nitrogen 15 mg/dL (7-20) Creatinine 3.9 mg/dL (0.6-1.0) Estimated GFR (Cockcroft-Gault) 11.5 Glucose Level 86 mg/dL (70-99) Calcium Level 8.1 mg/dL (8.5-10.1) Phosphorus Level 3.4 mg/dL (2.6-4.7) Magnesium Level 1.8 mg/dL (1.8-2.4) Albumin 2.4 g/dL (3.4-5.0) Medications Active Scripts Medications Dose Route/Sig Max Daily Dose Days Date Category Flagyl (Metronidazole) 500 Mg Tablet 500 Mg PO Q8HRS 08/02/16 Rx Metoprolol Tartrate 50 Mg Tablet 1 Tab PO BID 08/01/16 Reported Amlodipine Besylate 5 Mg Tablet 5 Mg PO DAILY 08/01/16 Reported Sensipar (Cinacalcet Hcl) 30 Mg Tablet 1 Tab PO DAILY 08/01/16 Reported Aspirin 81 Mg Tab.chew 1 Tab PO DAILY 08/01/16 Reported Renvela (Sevelamer Carbonate) 800 Mg Tablet 3 Tab PO TIDWMEALS 08/01/16 Reported Ferrous Sulfate 325 Mg Tablet 1 Tab PO DAILY 08/01/16 Reported Lasix (Furosemide) 80 Mg Tablet 1 Tab PO BID 08/05/15 Reported Nephro-Wagner Tablet (Folic Acid/Vitamin B Comp W-C) 0.8 Mg Tablet 1 Tab PO DAILY 07/04/15 Rx Atorvastatin Calcium 10 Mg Tablet 10 Mg PO QHS 07/04/15 Rx Vitamin D2 (Ergocalciferol (Vitamin D2)) 50,000 Unit Capsule 50,000 Unit PO WEEKLY 06/13/15 Rx Calcitriol 0.25 Mcg Capsule 0.5 Mcg PO DAILY 06/13/15 Rx Impression . 1. Expected acute respiratory failure post-hemodialysis catheter replacement and lysis of adhesions. 2. Bilateral pulmonary infiltrates compatible with pulmonary edema, doubt pneumonia.Improving CXR 3. Chronic renal failure, 4. Hypertension. 5. Hyperlipidemia. 6. Abnormal x-ray as indicated above. Plan . CONTINUE HD FOR NOW CXR IMPROVED, NEG FLUID BALANCE 1. S/P HD CATH 2. No need for antibiotics. 3. Deep venous thrombosis prophylaxis. 4. Continue home meds. 5. P.r.n. nebulized treatments. 6. IV Lasix. 7. P.r.n. BiPAP. FÉLIX PINEDO MD Dec 10, 2016 08:49
[2016-12-10] MEDS: amLODIPine BESYLATE 5 MG TABLET PO SCH (09:00)
[2016-12-10] MEDS: CALCITRIOL 0.25 MCG CAPSULE. PO SCH (09:00)
[2016-12-10] MEDS: METOPROLOL TART IMMED RELEASE 50 MG TABLET. PO SCH (09:00)
[2016-12-10] MEDS: DOCUSATE SODIUM 100 MG CAPSULE. PO SCH (09:00)
[2016-12-10] MEDS: FOLIC/VIT B COMP W-C (RENAL) TABLET. PO SCH (09:00)
[2016-12-10] MEDS: POLYETHYLENE GLYCOL 3350 17 GM PACKET. PO SCH (09:00)
[2016-12-10] MEDS: HEPARIN PF for SUB-Q USE 5,000 UNIT/0.5 ML VIAL. SQ SCH (09:00)
[2016-12-10] MEDS: FERROUS SULFATE 325 MG TABLET. PO SCH (09:00)
--- NOTE | 2016-12-10 09:48 | PDOC ---
ROWENA UP [employer]PER[employer] 12/10/16 0948: SURGICAL PROGRESS NOTE Subjective no complaints ready to go home Vital Signs Vital Signs Date Time Temp Pulse Resp B/P (MAP) Pulse Ox O2 Delivery O2 Flow Rate FiO2 12/10/16 06:55 98.0 88 17 138/70 (92) 93 Room Air 98.0 12/09/16 07:00 2.0 General: Alert, Oriented X3, Cooperative Abdomen: Soft, Other (pd cath in place) Labs Laboratory Tests Test 12/08/16 10:18 12/08/16 17:30 12/09/16 05:10 12/10/16 04:15 Hepatitis B Surface Antigen Negative (Negative) Hepatitis B Surface Antibody Reactive (.) Hepatitis B Core Total Antibody Negative (Negative) Hepatitis B Core IgM Antibody Negative (Negative) White Blood Count 9.1 x10^3/uL (4.0-11.0) 7.9 x10^3/uL (4.0-11.0) Red Blood Count 2.42 x10^6/uL (3.50-5.40) 2.42 x10^6/uL (3.50-5.40) Hemoglobin 7.9 g/dL (12.0-15.5) 7.8 g/dL (12.0-15.5) Hematocrit 23.5 % (36.0-47.0) 23.4 % (36.0-47.0) Mean Corpuscular Volume 97 fL (79-100) 97 fL (79-100) Mean Corpuscular Hemoglobin 33 pg (25-35) 32 pg (25-35) Mean Corpuscular Hemoglobin Concent 34 g/dL (31-37) 33 g/dL (31-37) Red Cell Distribution Width 15.9 % (11.5-14.5) 15.3 % (11.5-14.5) Platelet Count 216 x10^3/uL (140-400) 183 x10^3/uL (140-400) Neutrophils (%) (Auto) 74 % (31-73) 68 % (31-73) Lymphocytes (%) (Auto) 12 % (24-48) 15 % (24-48) Monocytes (%) (Auto) 10 % (0-9) 13 % (0-9) Eosinophils (%) (Auto) 3 % (0-3) 5 % (0-3) Basophils (%) (Auto) 1 % (0-3) 1 % (0-3) Neutrophils # (Auto) 6.7 x10^3uL (1.8-7.7) 5.3 x10^3uL (1.8-7.7) Lymphocytes # (Auto) 1.1 x10^3/uL (1.0-4.8) 1.2 x10^3/uL (1.0-4.8) Monocytes # (Auto) 1.0 x10^3/uL (0.0-1.1) 1.0 x10^3/uL (0.0-1.1) Eosinophils # (Auto) 0.3 x10^3/uL (0.0-0.7) 0.4 x10^3/uL (0.0-0.7) Basophils # (Auto) 0.0 x10^3/uL (0.0-0.2) 0.0 x10^3/uL (0.0-0.2) Sodium Level 141 mmol/L (136-145) 137 mmol/L (136-145) Potassium Level 3.8 mmol/L (3.5-5.1) 4.0 mmol/L (3.5-5.1) Chloride Level 101 mmol/L (98-107) 101 mmol/L (98-107) Carbon Dioxide Level 30 mmol/L (21-32) 30 mmol/L (21-32) Anion Gap 10 (6-14) 6 (6-14) Blood Urea Nitrogen 29 mg/dL (7-20) 15 mg/dL (7-20) Creatinine 6.0 mg/dL (0.6-1.0) 3.9 mg/dL (0.6-1.0) Estimated GFR (Cockcroft-Gault) 7.0 11.5 Glucose Level 82 mg/dL (70-99) 86 mg/dL (70-99) Calcium Level 8.0 mg/dL (8.5-10.1) 8.1 mg/dL (8.5-10.1) Phosphorus Level 5.3 mg/dL (2.6-4.7) 3.4 mg/dL (2.6-4.7) Magnesium Level 2.0 mg/dL (1.8-2.4) 1.8 mg/dL (1.8-2.4) Albumin 2.4 g/dL (3.4-5.0) 2.4 g/dL (3.4-5.0) Lipase 350 U/L (73-393) Laboratory Tests Test 12/10/16 04:15 White Blood Count 7.9 x10^3/uL (4.0-11.0) Red Blood Count 2.42 x10^6/uL (3.50-5.40) Hemoglobin 7.8 g/dL (12.0-15.5) Hematocrit 23.4 % (36.0-47.0) Mean Corpuscular Volume 97 fL (79-100) Mean Corpuscular Hemoglobin 32 pg (25-35) Mean Corpuscular Hemoglobin Concent 33 g/dL (31-37) Red Cell Distribution Width 15.3 % (11.5-14.5) Platelet Count 183 x10^3/uL (140-400) Neutrophils (%) (Auto) 68 % (31-73) Lymphocytes (%) (Auto) 15 % (24-48) Monocytes (%) (Auto) 13 % (0-9) Eosinophils (%) (Auto) 5 % (0-3) Basophils (%) (Auto) 1 % (0-3) Neutrophils # (Auto) 5.3 x10^3uL (1.8-7.7) Lymphocytes # (Auto) 1.2 x10^3/uL (1.0-4.8) Monocytes # (Auto) 1.0 x10^3/uL (0.0-1.1) Eosinophils # (Auto) 0.4 x10^3/uL (0.0-0.7) Basophils # (Auto) 0.0 x10^3/uL (0.0-0.2) Sodium Level 137 mmol/L (136-145) Potassium Level 4.0 mmol/L (3.5-5.1) Chloride Level 101 mmol/L (98-107) Carbon Dioxide Level 30 mmol/L (21-32) Anion Gap 6 (6-14) Blood Urea Nitrogen 15 mg/dL (7-20) Creatinine 3.9 mg/dL (0.6-1.0) Estimated GFR (Cockcroft-Gault) 11.5 Glucose Level 86 mg/dL (70-99) Calcium Level 8.1 mg/dL (8.5-10.1) Phosphorus Level 3.4 mg/dL (2.6-4.7) Magnesium Level 1.8 mg/dL (1.8-2.4) Albumin 2.4 g/dL (3.4-5.0) Assessment/Plan s/p pd cath repositioning FU [address] Aquino Problems: LINDA AQUINO MD 12/10/16 1100: SURGICAL PROGRESS NOTE Assessment/Plan pt seen as above Problems: ROWENA UP APRN Dec 10, 2016 09:48 LINDA AQUINO MD Dec 10, 2016 11:00
--- NOTE | 2016-12-10 10:24 | PDOC ---
Dialysis Progress Note Dialysis Note Dialysis Note Seen on Hemodialysis, tolerating treatment Well Vitals on Hemodialysis: 149/83 85 afeb General Appearance: Awake: Alert Oriented x 3 Neck: No JVD or JVP Chest: CTA Luis Manuel Heart: S1 S2 Abdomen - Soft NTND Extremities - No Edema ESRD: Dialysis as below F 180 NR 3.0 Hrs 3 K 2.5 Ca 140 Na 30 HC03 Qb 350 + Qd 500+ Heparin 0 Units Uf 1-2 Kgs or to dry weight as tolerated May give 25-50 gms of 25% Albumin if needed to maintain Hemodynamic stability Treatment plan reviewed and discussed with palm and back forger Vitals Vital Signs Vital Signs Date Time Temp Pulse Resp B/P (MAP) Pulse Ox O2 Delivery O2 Flow Rate FiO2 12/10/16 06:55 98.0 88 17 138/70 (92) 93 Room Air 98.0 12/09/16 07:00 2.0 Labs Last Labs Laboratory Tests Test 12/08/16 17:30 12/09/16 05:10 12/10/16 04:15 Hepatitis B Core IgM Antibody Negative (Negative) White Blood Count 9.1 x10^3/uL (4.0-11.0) 7.9 x10^3/uL (4.0-11.0) Red Blood Count 2.42 x10^6/uL (3.50-5.40) 2.42 x10^6/uL (3.50-5.40) Hemoglobin 7.9 g/dL (12.0-15.5) 7.8 g/dL (12.0-15.5) Hematocrit 23.5 % (36.0-47.0) 23.4 % (36.0-47.0) Mean Corpuscular Volume 97 fL (79-100) 97 fL (79-100) Mean Corpuscular Hemoglobin 33 pg (25-35) 32 pg (25-35) Mean Corpuscular Hemoglobin Concent 34 g/dL (31-37) 33 g/dL (31-37) Red Cell Distribution Width 15.9 % (11.5-14.5) 15.3 % (11.5-14.5) Platelet Count 216 x10^3/uL (140-400) 183 x10^3/uL (140-400) Neutrophils (%) (Auto) 74 % (31-73) 68 % (31-73) Lymphocytes (%) (Auto) 12 % (24-48) 15 % (24-48) Monocytes (%) (Auto) 10 % (0-9) 13 % (0-9) Eosinophils (%) (Auto) 3 % (0-3) 5 % (0-3) Basophils (%) (Auto) 1 % (0-3) 1 % (0-3) Neutrophils # (Auto) 6.7 x10^3uL (1.8-7.7) 5.3 x10^3uL (1.8-7.7) Lymphocytes # (Auto) 1.1 x10^3/uL (1.0-4.8) 1.2 x10^3/uL (1.0-4.8) Monocytes # (Auto) 1.0 x10^3/uL (0.0-1.1) 1.0 x10^3/uL (0.0-1.1) Eosinophils # (Auto) 0.3 x10^3/uL (0.0-0.7) 0.4 x10^3/uL (0.0-0.7) Basophils # (Auto) 0.0 x10^3/uL (0.0-0.2) 0.0 x10^3/uL (0.0-0.2) Sodium Level 141 mmol/L (136-145) 137 mmol/L (136-145) Potassium Level 3.8 mmol/L (3.5-5.1) 4.0 mmol/L (3.5-5.1) Chloride Level 101 mmol/L (98-107) 101 mmol/L (98-107) Carbon Dioxide Level 30 mmol/L (21-32) 30 mmol/L (21-32) Anion Gap 10 (6-14) 6 (6-14) Blood Urea Nitrogen 29 mg/dL (7-20) 15 mg/dL (7-20) Creatinine 6.0 mg/dL (0.6-1.0) 3.9 mg/dL (0.6-1.0) Estimated GFR (Cockcroft-Gault) 7.0 11.5 Glucose Level 82 mg/dL (70-99) 86 mg/dL (70-99) Calcium Level 8.0 mg/dL (8.5-10.1) 8.1 mg/dL (8.5-10.1) Phosphorus Level 5.3 mg/dL (2.6-4.7) 3.4 mg/dL (2.6-4.7) Magnesium Level 2.0 mg/dL (1.8-2.4) 1.8 mg/dL (1.8-2.4) Albumin 2.4 g/dL (3.4-5.0) 2.4 g/dL (3.4-5.0) Lipase 350 U/L (73-393) Laboratory Tests Test 12/10/16 04:15 White Blood Count 7.9 x10^3/uL (4.0-11.0) Red Blood Count 2.42 x10^6/uL (3.50-5.40) Hemoglobin 7.8 g/dL (12.0-15.5) Hematocrit 23.4 % (36.0-47.0) Mean Corpuscular Volume 97 fL (79-100) Mean Corpuscular Hemoglobin 32 pg (25-35) Mean Corpuscular Hemoglobin Concent 33 g/dL (31-37) Red Cell Distribution Width 15.3 % (11.5-14.5) Platelet Count 183 x10^3/uL (140-400) Neutrophils (%) (Auto) 68 % (31-73) Lymphocytes (%) (Auto) 15 % (24-48) Monocytes (%) (Auto) 13 % (0-9) Eosinophils (%) (Auto) 5 % (0-3) Basophils (%) (Auto) 1 % (0-3) Neutrophils # (Auto) 5.3 x10^3uL (1.8-7.7) Lymphocytes # (Auto) 1.2 x10^3/uL (1.0-4.8) Monocytes # (Auto) 1.0 x10^3/uL (0.0-1.1) Eosinophils # (Auto) 0.4 x10^3/uL (0.0-0.7) Basophils # (Auto) 0.0 x10^3/uL (0.0-0.2) Sodium Level 137 mmol/L (136-145) Potassium Level 4.0 mmol/L (3.5-5.1) Chloride Level 101 mmol/L (98-107) Carbon Dioxide Level 30 mmol/L (21-32) Anion Gap 6 (6-14) Blood Urea Nitrogen 15 mg/dL (7-20) Creatinine 3.9 mg/dL (0.6-1.0) Estimated GFR (Cockcroft-Gault) 11.5 Glucose Level 86 mg/dL (70-99) Calcium Level 8.1 mg/dL (8.5-10.1) Phosphorus Level 3.4 mg/dL (2.6-4.7) Magnesium Level 1.8 mg/dL (1.8-2.4) Albumin 2.4 g/dL (3.4-5.0) YASMEEN CARD MD Dec 10, 2016 10:24
[2016-12-10 14:39] VITALS: BP 117/63
[2016-12-12] MEDS ORDERED: ERGOCALCIFEROL (VITAMIN D2) 50,000 UNIT CAPSULE. PO SCH (09:00)
== END 2016-12-10 15:26 | disposition home or self-care (01) | DRG 919 ==
LOC: ER 11:58 → 5 NORTH 16:17 → ER 17:35 → 1 WEST ICU 12-07 15:53 → 6 SOUTH 12-09 16:14
PROVIDERS: ADMIT Internal Medicine; ATTEND Internal Medicine
PROC: 5A1D70Z Performance of Urinary Filtration, Intermittent, Less than 6 Hours Per Day (ICD-10-PCS; 2016-12-05)
PROC: 5A09357 Assistance with Respiratory Ventilation, Less than 24 Consecutive Hours, Continuous Positive Airway Pressure (ICD-10-PCS; 2016-12-05)
PROC: 3E1M39Z Irrigation of Peritoneal Cavity using Dialysate, Percutaneous Approach (ICD-10-PCS; principal; 2016-12-07 11:30)
PROC: 0JH63XZ Insertion of Tunneled Vascular Access Device into Chest Subcutaneous Tissue and Fascia, Percutaneous Approach (ICD-10-PCS; 2016-12-08)
PROC: 02H633Z Insertion of Infusion Device into Right Atrium, Percutaneous Approach (ICD-10-PCS; 2016-12-08)
DX: T85.611A Breakdown (mechanical) of intraperitoneal dialysis catheter, initial encounter (principal); K85.90 Acute pancreatitis without necrosis or infection, unspecified; J96.01 Acute respiratory failure with hypoxia; E46 Unspecified protein-calorie malnutrition; M32.9 Systemic lupus erythematosus, unspecified; I12.0 Hypertensive chronic kidney disease with stage 5 chronic kidney disease or end stage renal disease; E87.70 Fluid overload, unspecified; E87.5 Hyperkalemia; E83.51 Hypocalcemia; N18.6 End stage renal disease; K66.0 Peritoneal adhesions (postprocedural) (postinfection); D63.1 Anemia in chronic kidney disease; Z68.26 Body mass index [BMI] 26.0-26.9, adult; E66.9 Obesity, unspecified; E78.00 Pure hypercholesterolemia, unspecified; E78.5 Hyperlipidemia, unspecified; G47.00 Insomnia, unspecified; Y81.2 Prosthetic and other implants, materials and accessory general- and plastic-surgery devices associated with adverse incidents; Z99.2 Dependence on renal dialysis
CPT/HCPCS: 36415; 36558; 49400; 71010; 71020; 74000; 74190; 76937; 77001; 80053; 80069; 83690; 83735; 85018; 85025; 86704; 86705; 86706; 87340; 87341; 87641; 89050; 93880; 94002; 94640; 99152; 99153; C1750; C1769; C1892; J0330; J0690; J0780; J0881; J1100; J1644; J1940; J2250; J2405; J2704; J2710; J3010; J3490; J7030; J7040; J7060; J7613; Q0164; Q9967; 99285-25; J2001

== ENCOUNTER 2017-02-28 15:41 | Emergency (ER) | payer BC | END 2017-02-28 16:15 | disposition left against medical advice (07) | LOC: ER 15:41 | DX: T82.898A Other specified complication of vascular prosthetic devices, implants and grafts, initial encounter (principal); Z88.5 Allergy status to narcotic agent; Z53.21 Procedure and treatment not carried out due to patient leaving prior to being seen by health care provider; Y84.6 Urinary catheterization as the cause of abnormal reaction of the patient, or of later complication, without mention of misadventure at the time of the procedure; Y92.89 Other specified places as the place of occurrence of the external cause ==

== ENCOUNTER → 2017-03-10 | Outpatient (CLI) | payer BC | END | disposition home or self-care (01) | LOC: ECHO 14:07 | DX: I08.1 Rheumatic disorders of both mitral and tricuspid valves (principal); I25.10 Atherosclerotic heart disease of native coronary artery without angina pectoris; Z95.2 Presence of prosthetic heart valve | CPT/HCPCS: 93306 ==

== ENCOUNTER → 2017-03-11 | Outpatient (CLI) | payer BC ==
[2017-03-11] MEDS: REGADENOSON 0.4 MG/5 ML DISP.SYRIN. IV (08:30)
== END | disposition home or self-care (01) ==
LOC: NM 06:53
DX: I45.10 Unspecified right bundle-branch block (principal); I12.9 Hypertensive chronic kidney disease with stage 1 through stage 4 chronic kidney disease, or unspecified chronic kidney disease; N18.6 End stage renal disease; R11.2 Nausea with vomiting, unspecified
CPT/HCPCS: 78452; 93017; 96374; 96375; 96376; A9500; J2785

== ENCOUNTER → 2017-04-27 | Outpatient (CLI) | payer BC ==
[2017-04-27 11:54] LABS: BASO # 0.1 x10^3/uL (0.0-0.2); BASO % 1 % (0-3); EOS % 0 % (0-3); HEMATOCRIT 31.9 % (36.0-47.0); HEMOGLOBIN 10.8 g/dL (12.0-15.5); LYMPH # 0.4 x10^3/uL (1.0-4.8); LYMPH % 3 % (24-48); MEAN CORPUSCULAR HEMOGLOBIN 32 pg (25-35); MEAN CORPUSCULAR HGB CONC 34 g/dL (31-37); MEAN CORPUSCULAR VOLUME 95 fL (79-100); MONO # 0.3 x10^3/uL (0.0-1.1); MONO % 2 % (0-9); NEUT % 94 % (31-73); PLATELET COUNT 267 x10^3/uL (140-400); RED BLOOD COUNT 3.37 x10^6/uL (3.50-5.40); RED CELL DISTRIBUTION WIDTH 20.2 % (11.5-14.5); WHITE BLOOD COUNT 11.7 x10^3/uL (4.0-11.0)
[2017-04-27 12:02] LABS: ADD MAN DIFF? YES
[2017-04-27 12:06] LABS: ANION GAP 15 (6-14); BLOOD UREA NITROGEN 16 mg/dL (7-20); CALCIUM 9.3 mg/dL (8.5-10.1); CARBON DIOXIDE 19 mmol/L (21-32); CHLORIDE 104 mmol/L (98-107); CREATININE 1.2 mg/dL (0.6-1.0); GFR 44.9; GLUCOSE 114 mg/dL (70-99); POTASSIUM 4.7 mmol/L (3.5-5.1); SODIUM 138 mmol/L (136-145)
[2017-04-27 12:34] LABS: % LYMPHS 3 % (24-48); % MONOS 3 % (0-10); % SEGS 94 % (35-66)
[2017-04-27 12:35] LABS: ANISOCYTOSIS MOD; PLT ESTIMATE ADEQUATE (ADEQUATE)
== END | disposition home or self-care (01) ==
LOC: SURGPAT 10:57
DX: Z01.818 Encounter for other preprocedural examination (principal)
CPT/HCPCS: 36415; 80048; 85007; 85025

== ENCOUNTER 2017-05-02 06:35 | Day surgery (SDC) | payer BC ==
[2017-05-02] MEDS ORDERED: IV NORMAL SALINE 1000ML BAG 1,000 ML IV (06:45)
[2017-05-02] MEDS ORDERED: MORPHINE SULFATE 2 MG/ML DISP.SYRIN. IV (07:00)
[2017-05-02] MEDS ORDERED: PROCHLORPERAZINE 10 MG/2 ML VIAL. IV (07:00)
[2017-05-02] MEDS ORDERED: ONDANSETRON PF 4 MG/2 ML VIAL. IV (07:00)
[2017-05-02] MEDS ORDERED: LIDOCAINE 1% PF 2 ML VIAL. ID (07:00)
[2017-05-02] MEDS ORDERED: fentaNYL PF VIAL 100 MCG/2 ML VIAL IV (07:00)
[2017-05-02] MEDS ORDERED: MORPHINE SULFATE 4 MG/ML DISP.SYRIN. IV (07:00)
[2017-05-02] MEDS ORDERED: PROPOFOL 20 ML IV ×2 (07:22→08:15)
[2017-05-02] MEDS ORDERED: LIDOCAINE 2% PF Vial for OR 5 ML VIAL. (07:22)
[2017-05-02] MEDS ORDERED: DEXAMETHASONE SOD PHOS 20 MG/5 ML VIAL. (07:22)
[2017-05-02] MEDS ORDERED: ONDANSETRON PF 4 MG/2 ML VIAL. (07:22)
[2017-05-02] MEDS ORDERED: fentaNYL PF VIAL 100 MCG/2 ML VIAL (07:23)
[2017-05-02] MEDS: IV 1/2 NORMAL SALINE 1,000 ML IV (07:50)
[2017-05-02] MEDS: SCOPOLAMINE 1.5MG PATCH. TD (07:57)
[2017-05-02] MEDS: BUPIVAC MPF-EPI 0.5%-1:200000 30 ML VIAL. INJ (08:20)
[2017-05-02] MEDS: NEOMY/BACITR/POLYMYXIN OINT PACKET. TP (08:40)
[2017-05-02] MEDS: fentaNYL PF VIAL 100 MCG/2 ML VIAL IV (09:57)
== END 2017-05-02 10:17 | disposition home or self-care (01) ==
LOC: SURG 06:35
DX: Z49.02 Encounter for fitting and adjustment of peritoneal dialysis catheter (principal); I13.2 Hypertensive heart and chronic kidney disease with heart failure and with stage 5 chronic kidney disease, or end stage renal disease; N18.6 End stage renal disease; I50.9 Heart failure, unspecified; E78.00 Pure hypercholesterolemia, unspecified; K21.9 Gastro-esophageal reflux disease without esophagitis; M19.90 Unspecified osteoarthritis, unspecified site; M10.9 Gout, unspecified; Z86.2 Personal history of diseases of the blood and blood-forming organs and certain disorders involving the immune mechanism; Z98.890 Other specified postprocedural states; Z95.5 Presence of coronary angioplasty implant and graft; Z79.01 Long term (current) use of anticoagulants; Z94.0 Kidney transplant status; Z88.6 Allergy status to analgesic agent
CPT/HCPCS: 49422; J0690; J1100; J2405; J2704; J3010; J3490